=== PATIENT | male | born 1950 | race Caucasian/White ===

== ENCOUNTER 2023-11-21 09:54 | Inpatient (IN) | payer MEDICARE, SELFPAY ==
--- NOTE | ~2023-11-21 | XR_ITS ---
EXAMINATION: XR chest 1V CLINICAL INFORMATION: Fever COMPARISON: Chest x-ray 2 days earlier TECHNIQUE: XR chest 1V, 2 Views Lungs and [place]: Linear opacity likely platelike atelectasis left lung base, lungs otherwise remain clear. Pleura: Normal. Costophrenic angles are sharp. No pneumothorax. Heart: The heart is normal in size. Mediastinum: Widened mediastinum exaggerated by AP technique unchanged.. Bones: Skeletal structures included are normal for patient's age. XR/XR chest 1V IMPRESSION: 1. Linear opacity likely platelike atelectasis left lung base. 2. No radiographic evidence of pneumonia. 3. Widened mediastinum exaggerated by AP technique unchanged.
--- NOTE | ~2023-11-21 | CT_ITS ---
EXAMINATION: CT HEAD WITHOUT CONTRAST CLINICAL INFORMATION: Multiple falls. Unsteady gait. History of CVA. COMPARISON: None available. TECHNIQUE: Contiguous axial imaging was performed from the skull base to vertex without intravenous administration of contrast. This CT examination was performed using dose optimization techniques as appropriate, variously including the following: *Automated exposure control *Adjustment of mA and/or kV according to patient size (this includes techniques or standardized protocols for targeted exams where dose is matched to indication/reason for exam; i.e. extremities or head) *Use of iterative reconstruction technique DLP: 708 mGy-cm FINDINGS: There is no acute intracranial hemorrhage. There is no evidence of acute/subacute cerebral or cerebellar infarction. There is no midline shift or mass effect. No extra-axial fluid collection. There is cerebellar atrophy, right greater than left. The cavernous carotid arteries are densely calcified. There is calcification of the M1 segments of the middle cerebral arteries bilaterally. The ventricles are normal in size. The orbits are symmetric and within normal limits. The mastoid air cells are well aerated. There is scattered ethmoid air cell mucosal disease. CT/CT head/brain wo IV con IMPRESSION: No acute intracranial pathology. Cerebellar atrophy, right greater than left. Extensive intracranial atherosclerosis.
--- NOTE | ~2023-11-21 | XR_ITS ---
EXAMINATION: XR CHEST CLINICAL INFORMATION: Weakness. COMPARISON: None available. TECHNIQUE: 2 views of the chest were obtained. FINDINGS: The heart is mildly enlarged. There is calcific atherosclerotic disease of the aorta. There is no consolidation. No pleural effusion or pneumothorax. No acute osseous abnormality. XR/XR chest 2V IMPRESSION: No acute cardiopulmonary disease. The heart is mildly enlarged.
--- NOTE | ~2023-11-21 | CT_ITS ---
EXAMINATION: CT ABDOMEN AND PELVIS WITH CONTRAST CLINICAL INFORMATION: Fever and urinary infection. COMPARISON: CT abdomen 06/18/2027. TECHNIQUE: Multidetector volumetric images were obtained from the superior aspect of the liver through the pubic symphysis following administration 85 mL of Omnipaque 350 intravenous contrast. Sagittal and coronal reformatted images were obtained on the technologist's workstation. Oral contrast: No This CT examination was performed using dose optimization techniques as appropriate, variously including the following: *Automated exposure control *Adjustment of mA and/or kV according to patient size (this includes techniques or standardized protocols for targeted exams where dose is matched to indication/reason for exam; i.e. extremities or head) *Use of iterative reconstruction technique DLP: 708 mGy-cm FINDINGS: LUNG BASES: The visualized lung bases are unremarkable. LIVER, GALLBLADDER, AND BILIARY TREE: Several small cysts in the liver. No follow-up imaging is recommended. No biliary ductal dilatation. The gallbladder is unremarkable with no evidence of radiopaque gallstones, gallbladder wall thickening, or obvious pericholecystic inflammatory changes. PANCREAS: No discrete mass. No ductal dilatation. SPLEEN: Unremarkable. ADRENAL GLANDS: No adrenal mass. KIDNEYS AND URETERS: Multiple cysts are seen in both kidneys. No follow-up imaging is recommended. No nephrolithiasis or hydronephrosis. BLADDER: The bladder wall is not thickened. No visible trabeculation. No visible calculus. GASTROINTESTINAL TRACT: The small and large bowel are normal in caliber. Mild colonic diverticulosis. ABDOMINAL WALL: Fat-containing umbilical hernia. LYMPH NODES: No lymphadenopathy. VASCULAR: No aortic aneurysm. Mild aortoiliac atherosclerosis. PELVIC VISCERA: Prostate is enlarged measuring 5.5 x 4.8 x 5.2 cm. A 6 mm cystic lesion is seen in the left upper prostate which could represent a small abscess. OSSEOUS STRUCTURES: Degenerative changes in the spine and hips. CT/CT abdomen pelvis w IV con IMPRESSION: No CT evidence of pyelonephritis. No nephrolithiasis or hydronephrosis. Enlarged prostate. 6 mm cystic lesion in the left prostate is nonspecific but could represent a small abscess given the clinical indication. Correlation with physical exam is recommended. Fleischner guidelines were followed.
[2023-11-21 10:10] VITALS: BP 138/93; PULSE 91; RESP 20; TEMP 36.5; O2SAT 96; BMI 29.3
--- NOTE | 2023-11-21 15:02 | ED.GENADULT ---
HPI - General Adult General Chief complaint: General Medical Stated complaint: multiple symptoms Time Seen by Provider: 11/21/23 16:14 Source: patient and family (Daughter at the bedside) Mode of arrival: EMS Limitations: other (Hard of hearing, history of CVA with right-sided deficit) History of Present Illness HPI narrative: 73-year-old male with a history hemorrhagic CVA with right-sided weakness, currently at baseline, hypertension, presents from home via EMS with multiple concerns. Patient reports that over the past 2-3 days he began to have a rash, primarily on the right side of his mouth, and his right arm. He reports it as burning and painful. He reports it has crusted over since that time. He denies any new foods, detergents, soaps or any other contacts. In addition, for the past 1-2 weeks he has had increased difficulty with mobility. He reports generalized weakness and has had several falls. He denies striking his head since that time. He does admit to doing a lot of yard work outside. He denies any headache or vision changes. No chest pain or shortness of breath. No dyspnea on exertion orthopnea. He has had decreased appetite. According to the patient's daughter at the bedside, he is not able to care for himself adequately as he lives at home with his 97-year-old mother. The patient confirms that he despite using a walker is not able to properly care for himself and perform his ADLs. He does report episodes of urinary incontinence. Patient also reports over the past 24 hours he has been having difficulty with sleeping. Patient states he had some very vivid dreams that ?I could not get out of?. This caused him to be scared. He was able to awake and move about afterwards. Related Data Home Medications ?Medication ?Instructions ?Recorded ?Confirmed cholecalciferol (vitamin D3) 25 25 mcg PO QAM 11/21/23 11/21/23 mcg (1,000 unit) tablet (Vitamin D3) valsartan 160 mg tablet 160 mg PO QAM 11/21/23 11/21/23 Allergies Allergy/AdvReac Type Severity Reaction Status Date / Time KAY Inhibitors Allergy Severe SWELLING Verified 11/21/23 10:15 [KAY INHIBITORS] ciprofloxacin [CIPROFLOXACIN] Allergy Severe SWELLING Verified 11/21/23 10:15 gabapentin [GABAPENTIN] Allergy Severe ANAPHYLAXIS Verified 11/21/23 10:15 erythromycin base Allergy Intermediate SHORTNESS Verified 11/21/23 10:15 [ERYTHROMYCIN BASE] OF BREATH ibuprofen [From MOTRIN] Allergy Intermediate HIVES Verified 11/21/23 10:15 SERATONIN Allergy Severe SERATONIN Uncoded 03/16/20 16:39 SYNDROME Review of Systems Constitutional: Constitutional: Denies chills, Denies fever(s) and Denies headache(s) Eyes: Eyes: Denies change in vision and Denies other (No redness.) ENT: Denies headache(s), Denies nasal congestion, Denies nasal discharge, Denies neck pain and Denies sore throat Cardiovascular: Cardiovascular: Denies chest pain, Denies palpitations, Denies dyspnea, Denies dyspnea on exertion and Denies orthopnea Respiratory: Respiratory: Denies cough, Denies dyspnea and Denies dyspnea on exertion Gastrointestinal: Gastrointestinal: Denies abdominal pain, Denies melena, Denies hematochezia, Denies diarrhea, Denies nausea and Denies vomiting Genitourinary: Genitourinary: Denies difficulty urinating, Denies dysuria, Reports urinary incontinence and Denies urinary urgency Musculoskeletal: Musculoskeletal: Denies back pain, Reports muscle weakness, Denies neck pain and Reports numbness (Right arm and leg, baseline since cva) Integumentary/Breasts: Skin/Breast: Denies rash Neurologic: Denies headache(s), Denies focal weakness and Reports numbness (Right arm and leg, baseline since cva) Psychiatric: Psychiatric: Denies depression Endocrine: Endocrine: Denies palpitations [facility] Past Medical History [facility] Narrative: CVA, HTN Source: obtained from family Social History Social History Smoked in Last 30 Days: No Use of substances other than those prescribed or required for medical reasons: No Advance Directives: No Advance Directives Information Provided: No Physical Exam ED Vital Signs: Vital Signs - 24 hr 11/21/23 10:10 11/21/23 15:07 11/21/23 16:14 Temperature 97.7 F 97.4 F 98.0 F Pulse Rate 91 90 86 Respiratory Rate 20 20 17 Blood Pressure 138/93 H 155/97 H 133/90 H Pulse Oximetry 96 96 96 Oxygen Delivery Method Room Air Room Air Room Air 11/21/23 18:22 11/21/23 21:19 Temperature 98.0 F 97.8 F Pulse Rate 82 88 Respiratory Rate 17 18 Blood Pressure 145/80 H 131/88 Pulse Oximetry 96 96 Oxygen Delivery Method Room Air Room Air BMI result Body Mass Index 29.3 Const General: cooperative and no acute distress HENMT Other: Mucous membranes dry. Essentially edentulous. Neck Other: No spinous, paraspinous or paravertebral tenderness Resp Auscultation: clear to auscultation bilaterally Cardio Rate: regular rate Rhythm: regular rhythm GI Other: Abdomen is soft and nontender. No peritoneal signs. There is an umbilical hernia that is easily reduced. No CVAT. Skin Other: Multiple, slightly erythematous areas of papules with crusting to the right philtrum and corner of the mouth. There is no streaking or discharge. Similar satellite lesions to the dorsum of the right forearm. No induration. No other vesicles Neuro Other: Right-sided facial droop, baseline according to patient. Extrem Other: Manager Paper is 5/5 on the left, 4/5 on the right. Course Course Course Narrative: This is an RME: Additional HPI, ROS, PE not included below will be deferred to primary provider. RME assessment and note performed by: Anabell Raymond PA-C This is a [id number]-male, with a hx of hemorrhagic stroke with residual left sided facial droop 15 years ago, who presents to the ER with multiple complaints. Patient states that he has had mouth dryness, lesions on his skin and increased anxiety. Patient states that 2 nights ago he had a very bad dream which caused him to wake up in a panic. He states that he tried going back to bed and was back in the dream again. He states this happened 5 times. He is fearful to fall back asleep due to the dream. He does endorse some abdominal pain but is unable to discern whether not this is due to hunger. Plan: Labs, UA, EKG Reevaluation(s) Reevaluation #1: I have had a repeat discussion with the patient and his daughter at the bedside. Given that he has had generalized weakness, inability to care for himself, confusion at home evidenced by in coherent text, white blood cell count of 13.9, and urinalysis findings, patient will be brought into the hospital for further evaluation and management. Chest x-ray is unremarkable. CT of the head is pending. Discussed with Dr. Jay for transfer of care. 10:[address] results returned. No acute process. Dr. Jay notified. Time: 19:42 Medications Administered Discontinued Medications Generic Name Dose Route Start Last Admin Trade Name Traci PRN Reason Stop Dose Admin Sodium Chloride 1,000 mls @ 999 mls/hr 11/21/23 16:45 11/21/23 18:09 Ns IV 11/21/23 17:45 999 mls/hr .Q1H1M SHARMAINE Administration Ceftriaxone Sodium 1 gm/ 50 mls @ 100 mls/hr 11/21/23 17:24 11/21/23 20:06 Sodium Chloride IV 11/21/23 17:53 Infused ONCE ONE Infusion Medical Decision Making Medical Decision Making [facility] Narrative: 73-year-old male with a history of CVA and right-sided deficit, hypertension, presents with generalized weakness, failure to perform ADLs while at home, a new right-sided rash suspicious for zoster but could also be folliculitis. Check labs, EKG, UA, chest x-ray and CT of brain. IV fluids. The patient and his daughter concerned about his well-being while at home. If medically warranted, the patient was brought to the hospital otherwise he may be a candidate for rehab placement. Differential Diagnosis Differential Diagnoses: The differential diagnosis associated with the presentation includes Deconditioning UTI CVA Metabolic abnormality Dehydration Rhabdomyolysis Admission/Observation Consideration of admission/observation: Escalation of care including admission/observation considered Consult Healthcare Provider Management of the patient was discussed with: Hospitalist Lab Data [facility] Lab Attestation statement: I reviewed the patient's lab results. 11/21/23 15:28 11/21/23 15:28 Labs: Lab Results 11/21/23 11/21/23 11/21/23 Range/Units 15:28 15:28 15:28 WBC 13.9 H (4.8-10.8) X10*3/uL RBC 5.15 (4.60-5.80) X10*6/uL Hgb 15.4 (14.0-18.0) g/dl Hct 45.0 (42.0-52.0) % MCV 87.4 (80.0-98.0) fL MCH 29.9 (27.0-33.0) pg MCHC 34.2 (31.0-36.0) g/dl RDW 14.8 (11.0-16.0) % Plt Count 210 (160-400) X10*3/uL MPV 10.0 (9.4-12.4) fL Immature Gran % (Auto) Cancelled Neut % (Auto) Cancelled Lymph % (Auto) Cancelled Wilkin % (Auto) Cancelled Eos % (Auto) Cancelled Baso % (Auto) Cancelled Lymph # (Auto) Cancelled Wilkin # (Auto) Cancelled Eos # (Auto) Cancelled Baso # (Auto) Cancelled Abs Immat Gran (auto) Cancelled Absolute Neuts (auto) Cancelled Absolute Nucleated RBC 0.000 (0.0-0.012) X10*3/uL Nucleated RBC % (auto) 0.0 (0.0-0.2) /100WBC Neutrophils % (Manual) 77 H (45-73) % Band Neutrophils % 3 (3-5) % Lymphocytes % (Manual) 7 L (20-40) % Atypical Lymphs % (Man) 6 (0-6) % Monocytes % (Manual) 7 (2-11) % Abs Neuts (Manual) 11.1 H (2.0-8.3) X10*3/uL Lymphocytes # (Manual) 1.0 L (1.2-4.9) X10*3/uL Atyp Lymphs # (Manual) 0.8 x10*3/uL Monocytes # (Manual) 1.0 (0.1-1.2) X10*3/uL Platelet Estimate NORMAL (NORMAL) Plt Morphology Comment NORMAL RBC Morphology NOTED Goodwin Cells 1+ (0-2) /OIF Sodium 140 (135-145) mmol/L Potassium 4.0 (3.3-5.1) mmol/L Chloride 105 (96-108) mmol/L Carbon Dioxide 26 (22-29) mmol/L Anion Gap 13 (12-20) BUN 30 H (9-16) mg/dL Creatinine 1.04 (0.5-1.4) mg/dL Estim Creat Clear Calc 73.4 Estimated GFR > 60 Random Glucose 130 H (60-115) mg/dL Lactic Acid (0.5-2.0) mmol/L Calcium 10.2 (8.4-10.2) mg/dL Total Bilirubin 0.7 (0.0-1.0) mg/dL Direct Bilirubin 0.4 (0.0-0.5) mg/dL AST 41 H (5-37) U/L ALT 64 H (0-40) U/L Alkaline Phosphatase 28 L (39-117) U/L Total Creatine Kinase (38-174) U/L Troponin I High Sens 6.2 (<3.5-35.0) ng/L Total Protein 7.7 (6.5-8.0) g/dL Albumin 3.7 (3.5-5.0) g/dL TSH (0.32-4.0) uIU/mL Free T4 (0.71-1.85) ng/dL Urine Color Yellow Cancelled Urine Appearance Cloudy Cancelled Urine pH 5.5 (5.0-9.0) Ur Specific [place] (1.005-1.025) Urine Protein (Neg-Trace) mg/dL Urine Glucose (UA) (Negative) mg/dL Urine Ketones (Negative) mg/dL Urine Blood (Negative) Urine Nitrite (Negative) Ur Leukocyte Esterase (Negative) Urine RBC (0-2) /HPF Urine WBC (0-5) /HPF Ur Squamous Epith Cells (0-2) /HPF Urine Bacteria (None Seen) Hyaline Casts (0-2) /LPF 11/21/23 11/21/23 11/21/23 Range/Units 15:28 15:28 15:28 WBC (4.8-10.8) X10*3/uL RBC (4.60-5.80) X10*6/uL Hgb (14.0-18.0) g/dl Hct (42.0-52.0) % MCV (80.0-98.0) fL MCH (27.0-33.0) pg MCHC (31.0-36.0) g/dl RDW (11.0-16.0) % Plt Count (160-400) X10*3/uL MPV (9.4-12.4) fL Immature Gran % (Auto) Neut % (Auto) Lymph % (Auto) Wilkin % (Auto) Eos % (Auto) Baso % (Auto) Lymph # (Auto) Wilkin # (Auto) Eos # (Auto) Baso # (Auto) Abs Immat Gran (auto) Absolute Neuts (auto) Absolute Nucleated RBC (0.0-0.012) X10*3/uL Nucleated RBC % (auto) (0.0-0.2) /100WBC Neutrophils % (Manual) (45-73) % Band Neutrophils % (3-5) % Lymphocytes % (Manual) (20-40) % Atypical Lymphs % (Man) (0-6) % Monocytes % (Manual) (2-11) % Abs Neuts (Manual) (2.0-8.3) X10*3/uL Lymphocytes # (Manual) (1.2-4.9) X10*3/uL Atyp Lymphs # (Manual) x10*3/uL Monocytes # (Manual) (0.1-1.2) X10*3/uL Platelet Estimate (NORMAL) Plt Morphology Comment RBC Morphology Sandra Cells /OIF Sodium (135-145) mmol/L Potassium (3.3-5.1) mmol/L Chloride (96-108) mmol/L Carbon Dioxide (22-29) mmol/L Anion Gap (12-20) BUN (9-16) mg/dL Creatinine (0.5-1.4) mg/dL Estim Creat Clear Calc Estimated GFR Random Glucose (60-115) mg/dL Lactic Acid (0.5-2.0) mmol/L Calcium (8.4-10.2) mg/dL Total Bilirubin (0.0-1.0) mg/dL Direct Bilirubin (0.0-0.5) mg/dL AST (5-37) U/L ALT (0-40) U/L Alkaline Phosphatase (39-117) U/L Total Creatine Kinase (38-174) U/L Troponin I High Sens (<3.5-35.0) ng/L Total Protein (6.5-8.0) g/dL Albumin (3.5-5.0) g/dL TSH (0.32-4.0) uIU/mL Free T4 (0.71-1.85) ng/dL Urine Color Urine Appearance Urine pH Cancelled (5.0-9.0) Ur Specific [employer] [place] 1.020 Cancelled (1.005-1.025) Urine Protein 300 (3+) H Cancelled (Neg-Trace) mg/dL Urine Glucose (UA) Negative (Negative) mg/dL Urine Ketones (Negative) mg/dL Urine Blood (Negative) Urine Nitrite (Negative) Ur Leukocyte Esterase (Negative) Urine RBC (0-2) /HPF Urine WBC (0-5) /HPF Ur Squamous Epith Cells (0-2) /HPF Urine Bacteria (None Seen) Hyaline Casts (0-2) /LPF 11/21/23 11/21/23 11/21/23 Range/Units 15:28 15:28 15:28 WBC (4.8-10.8) X10*3/uL RBC (4.60-5.80) X10*6/uL Hgb (14.0-18.0) g/dl Hct (42.0-52.0) % MCV (80.0-98.0) fL MCH (27.0-33.0) pg MCHC (31.0-36.0) g/dl RDW (11.0-16.0) % Plt Count (160-400) X10*3/uL MPV (9.4-12.4) fL Immature Gran % (Auto) Neut % (Auto) Lymph % (Auto) Wilkin % (Auto) Eos % (Auto) Baso % (Auto) Lymph # (Auto) Wilkin # (Auto) Eos # (Auto) Baso # (Auto) Abs Immat Gran (auto) Absolute Neuts (auto) Absolute Nucleated RBC (0.0-0.012) X10*3/uL Nucleated RBC % (auto) (0.0-0.2) /100WBC Neutrophils % (Manual) (45-73) % Band Neutrophils % (3-5) % Lymphocytes % (Manual) (20-40) % Atypical Lymphs % (Man) (0-6) % Monocytes % (Manual) (2-11) % Abs Neuts (Manual) (2.0-8.3) X10*3/uL Lymphocytes # (Manual) (1.2-4.9) X10*3/uL Atyp Lymphs # (Manual) x10*3/uL Monocytes # (Manual) (0.1-1.2) X10*3/uL Platelet Estimate (NORMAL) Plt Morphology Comment RBC Morphology Goodwin Cells /OIF Sodium (135-145) mmol/L Potassium (3.3-5.1) mmol/L Chloride (96-108) mmol/L Carbon Dioxide (22-29) mmol/L Anion Gap (12-20) BUN (9-16) mg/dL Creatinine (0.5-1.4) mg/dL Estim Creat Clear Calc Estimated GFR Random Glucose (60-115) mg/dL Lactic Acid (0.5-2.0) mmol/L Calcium (8.4-10.2) mg/dL Total Bilirubin (0.0-1.0) mg/dL Direct Bilirubin (0.0-0.5) mg/dL AST (5-37) U/L ALT (0-40) U/L Alkaline Phosphatase (39-117) U/L Total Creatine Kinase (38-174) U/L Troponin I High Sens (<3.5-35.0) ng/L Total Protein (6.5-8.0) g/dL Albumin (3.5-5.0) g/dL TSH (0.32-4.0) uIU/mL Free T4 (0.71-1.85) ng/dL Urine Color Urine Appearance Urine pH (5.0-9.0) Ur Specific [employer] [place] (1.005-1.025) Urine Protein (Neg-Trace) mg/dL Urine Glucose (UA) Cancelled (Negative) mg/dL Urine Ketones 15 Cancelled (Negative) mg/dL Urine Blood Small (1+) H Cancelled (Negative) Urine Nitrite Negative (Negative) Ur Leukocyte Esterase (Negative) Urine RBC (0-2) /HPF Urine WBC (0-5) /HPF Ur Squamous Epith Cells (0-2) /HPF Urine Bacteria (None Seen) Hyaline Casts (0-2) /LPF 11/21/23 11/21/23 11/21/23 Range/Units 15:28 15:28 17:27 WBC (4.8-10.8) X10*3/uL RBC (4.60-5.80) X10*6/uL Hgb (14.0-18.0) g/dl Hct (42.0-52.0) % MCV (80.0-98.0) fL MCH (27.0-33.0) pg MCHC (31.0-36.0) g/dl RDW (11.0-16.0) % Plt Count (160-400) X10*3/uL MPV (9.4-12.4) fL Immature Gran % (Auto) Neut % (Auto) Lymph % (Auto) Wilkin % (Auto) Eos % (Auto) Baso % (Auto) Lymph # (Auto) Wilkin # (Auto) Eos # (Auto) Baso # (Auto) Abs Immat Gran (auto) Absolute Neuts (auto) Absolute Nucleated RBC (0.0-0.012) X10*3/uL Nucleated RBC % (auto) (0.0-0.2) /100WBC Neutrophils % (Manual) (45-73) % Band Neutrophils % (3-5) % Lymphocytes % (Manual) (20-40) % Atypical Lymphs % (Man) (0-6) % Monocytes % (Manual) (2-11) % Abs Neuts (Manual) (2.0-8.3) X10*3/uL Lymphocytes # (Manual) (1.2-4.9) X10*3/uL Atyp Lymphs # (Manual) x10*3/uL Monocytes # (Manual) (0.1-1.2) X10*3/uL Platelet Estimate (NORMAL) Plt Morphology Comment RBC Morphology Goodwin Cells /OIF Sodium (135-145) mmol/L Potassium (3.3-5.1) mmol/L Chloride (96-108) mmol/L Carbon Dioxide (22-29) mmol/L Anion Gap (12-20) BUN (9-16) mg/dL Creatinine (0.5-1.4) mg/dL Estim Creat Clear Calc Estimated GFR Random Glucose (60-115) mg/dL Lactic Acid 0.8 (0.5-2.0) mmol/L Calcium (8.4-10.2) mg/dL Total Bilirubin (0.0-1.0) mg/dL Direct Bilirubin (0.0-0.5) mg/dL AST (5-37) U/L ALT (0-40) U/L Alkaline Phosphatase (39-117) U/L Total Creatine Kinase 52 (38-174) U/L Troponin I High Sens (<3.5-35.0) ng/L Total Protein (6.5-8.0) g/dL Albumin (3.5-5.0) g/dL TSH 0.28 L (0.32-4.0) uIU/mL Free T4 1.13 (0.71-1.85) ng/dL Urine Color Urine Appearance Urine pH (5.0-9.0) Ur Specific [place] (1.005-1.025) Urine Protein (Neg-Trace) mg/dL Urine Glucose (UA) (Negative) mg/dL Urine Ketones (Negative) mg/dL Urine Blood (Negative) Urine Nitrite Cancelled (Negative) Ur Leukocyte Esterase Moderate (2+) H Cancelled (Negative) Urine RBC 0-2 (0-2) /HPF Urine WBC 21-50 (0-5) /HPF Ur Squamous Epith Cells 0-2 (0-2) /HPF Urine Bacteria 4+ (None Seen) Hyaline Casts 0-2 (0-2) /LPF Independent Interpretation I performed an independent interpretation of an: EKG Interpretation: No acute ischemic changes. Improved from previous. Radiology Impression Discussion of test interpretation with radiology: I have reviewed the radiologist's reading. Radiologist Impression: [place] [id number] XRay Report Signed Patient: Beau Schwartz MR#: [id number] : 1950 Acct:[id number] Age/Sex: 73 / M ADM Date: 11/21/23 Loc: .ED Attending Dr: Ordering Physician: Ronny Roberts Date of Service: 11/21/23 Procedure(s): XR chest 2V Accession Number(s): [id number] cc: HILLARY TRUJILLO MD; Ronny Roberts~ EXAMINATION: XR CHEST CLINICAL INFORMATION: Weakness. COMPARISON: None available. TECHNIQUE: 2 views of the chest were obtained. FINDINGS: The heart is mildly enlarged. There is calcific atherosclerotic disease of the aorta. There is no consolidation. No pleural effusion or pneumothorax. No acute osseous abnormality. XR/XR chest 2V IMPRESSION: No acute cardiopulmonary disease. The heart is mildly enlarged. Dictated By: Damir Tipton Jr, DO Signed By: <Electronically signed by Damir Tipton Jr, DO in OV> 11/21/23 1810 DD/ 1655 TD/TT: Postdoctoral Scholar: GINGER Independent Historian Clinical information obtained from an independent historian. History obtained from or confirmed by: Other (Daughter) Prescription Management I considered prescription management with: Antibiotic Chronic Conditions Patient?s care impacted by: Hypertension Social Determinants Patient?s care significantly limited by Social Determinants of Health including: Inadequate housing Discharge Plan Discharge Clinical Impression: Weakness Urinary tract infection Qualifiers: Urinary tract infection type: acute cystitis Hematuria presence: without hematuria Qualified Code(s): N30.00 - Acute cystitis without hematuria Patient Disposition: Admitted As Inpatient
[2023-11-21 15:07] VITALS: BP 155/97; PULSE 90; RESP 20; TEMP 36.3; O2SAT 96
--- NOTE | 2023-11-21 15:13 | ECG_ITS ---
Test Reason : ANXIETY Blood Pressure : / mmHG Vent. Rate : 086 BPM Atrial Rate : 086 BPM P-R Int : 160 ms QRS Dur : 102 ms QT Int : 374 ms P-R-T Axes : 012 -40 002 degrees QTc Int : 447 ms Sinus rhythm with Premature supraventricular complexes Left axis deviation Abnormal ECG When compared with ECG of 08-APR-2011 14:22, Premature ventricular complexes are no longer Present Premature supraventricular complexes are now Present Referred By: Anabell Raymond Electronically Signed By:Marty Gonzales
[2023-11-21 15:36] LABS: Appearance Urine Cloudy; Glucose Urine UA Negative (Negative); Leukocyte Esterase Urine Moderate (2+) (Negative); Nitrite Urine Negative (Negative); PH 5.5 (5.0-9.0); UMIC TRIGGER UACC YES; Urine Blood Small (1+) (Negative); Urine Ketones 15 mg/dL (Negative); Urine Protein 300 (3+) mg/dL (Neg-Trace)
[2023-11-21 15:38] LABS: Hemoglobin 15.4 g/dl (14.0-18.0); Mean Corpuscular HGB Conc 34.2 g/dl (31.0-36.0); Mean Corpuscular Hemoglobin 29.9 pg (27.0-33.0); Mean Corpuscular Volume 87.4 fL (80.0-98.0); Platelet Count 210 X10*3/uL (160-400); Red Blood Count 5.15 X10*6/uL (4.60-5.80); Red Cell Distribution Width 14.8 % (11.0-16.0); White Blood Count 13.9 X10*3/uL (4.8-10.8)
[2023-11-21 15:44] LABS: Color Urine Yellow
[2023-11-21 15:51] LABS: Bacteria Urine 4+ (None Seen); Hyaline Casts Urine 0-2 /LPF (0-2); RBC Urine 0-2 /HPF (0-2); Squamous Epithelial Cell Urine 0-2 /HPF (0-2); UACC Culture Trigger YES; WBC Urine 21-50 /HPF (0-5)
[2023-11-21 15:59] LABS: Alanine Aminotransferase 64 U/L (0-40); Albumin Level 3.7 g/dL (3.5-5.0); Alkaline Phosphatase 28 U/L (39-117); Anion Gap 13 (12-20); Aspartate Amino Transferase 41 U/L (5-37); Bilirubin Direct 0.4 mg/dL (0.0-0.5); Bilirubin Total 0.7 mg/dL (0.0-1.0); Blood Urea Nitrogen 30 mg/dL (9-16); Calcium 10.2 mg/dL (8.4-10.2); Carbon Dioxide 26 mmol/L (22-29); Chloride 105 mmol/L (96-108); Creatinine Clr Calc Pharmacy 73.4; Estimated Glomerular Filt Rate > 60; Glucose Random 130 mg/dL (60-115); Sodium 140 mmol/L (135-145); Total Protein 7.7 g/dL (6.5-8.0)
[2023-11-21 16:06] LABS: Troponin-I High Sensitivity 6.2 ng/L (<3.5-35.0)
[2023-11-21 16:10] LABS: Atypical Lymph Absolute Manual 0.8 x10*3/uL; Atypical Lymphs Percent Manual 6 % (0-6); Band Neutrophils Percent 3 % (3-5); Lymphocytes Percent Manual 7 % (20-40); Monocytes Percent Manual 7 % (2-11); Neutrophils Absolute Manual 11.1 X10*3/uL (2.0-8.3); Neutrophils Percent Manual 77 % (45-73)
[2023-11-21 16:11] LABS: Burr Cells 1+ (0-2) /OIF; RBC Morphology NOTED
[2023-11-21 16:12] LABS: Platelet Estimate NORMAL (NORMAL); Platelet Morphology Comment NORMAL
[2023-11-21 16:14] VITALS: BP 133/90; PULSE 86; RESP 17; TEMP 36.7; O2SAT 96
[2023-11-21 17:45] LABS: Lactic Acid 0.8 mmol/L (0.5-2.0)
[2023-11-21] MEDS: cefTRIAXone sodium 1 GM in 0.9 % Sodium Chloride 50 ML IV ×2 (18:07→23:00)
[2023-11-21] MEDS: 0.9 % Sodium Chloride 1,000 ML 999 ML IV (18:09)
[2023-11-21 18:10] LABS: TSH reflex Free T4 0.28 uIU/mL (0.32-4.0)
[2023-11-21 18:22] VITALS: BP 145/80; PULSE 82; RESP 17; TEMP 36.7; O2SAT 96
[2023-11-21 18:41] LABS: Free T4 (Free Thyroxine) 1.13 ng/dL (0.71-1.85)
--- NOTE | 2023-11-21 19:31 | PC.NURSE ---
This RN assumed pt care @ 1900. Pt ca&ox4, no signs of distress. Pt requesting hob elevated and urinal given. Pts daughter at bedside. Plan of care ongoing.
--- NOTE | 2023-11-21 20:52 | PC.NURSE ---
Pt changed into hospital gown. Plan of care ongoing.
[2023-11-21 21:19] VITALS: BP 131/88; PULSE 88; RESP 18; TEMP 36.6; O2SAT 96
--- NOTE | 2023-11-21 21:42 | P.HPHOSP_ITS ---
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 Patient with large CVA in 2008 with significant left-sided hemiparesis. Uses cane and walker for ambulation with occasional use of wheelchair for traveling longer distances. Family concerned patient has been less capable of taking care of himself at home over the past 1-2 weeks; lives with his 97 year mother. Patient reports having 3-4 falls at home while outside doing yard work, though states these occur when he is stuck in vegetation and finding it difficult to move. Denies tripping, lightheadedness, or dizziness. Denies head strike. Patient also complains of skin lesions on upper right extremity and on his face, primarily on the outside of his mouth on his right side. States they have been around for approximately a week, though worse the past 3-4 days. Minor pruritus. Patient also states that he has been experiencing worsening incontinence of urine, polyuria, and dysuria for the past week. Last night experienced hallucinations, long and protracted nightmares. States he was able to wake himself up, but nightmares would return every time he went back to sleep. This occurred 5 times. Family also concerned patient has been confused stating they received text from him last night that did not make sense and consisted of ?gibberish?. Patient denies chest pain/pressure, palpitations. No shortness of breath or difficulty breathing. In the ED pt was tachycardic up to 91, with elevated BP as high as 155/97. Labs were significant for leukocytosis of 13.9, AST 41, ALT 64, alk-phos 28, and TSH 0.28. Stable H& H. No electrolyte abnormalities. Renal function baseline. UA positive for UTI. CXR showed no acute cardiopulmonary disease with mildly enlarged heart. CT?of head negative for acute intracranial pathology, but did show cerebral atrophy with right greater than left and extensive intracranial atherosclerosis. EKG demonstrated sinus rhythm with premature supraventricular complexes but no evidence of significant ST elevations or depressions. Pt was treated with IVF and ceftriaxone. Pt will be admitted to the hospital for treatment and further evaluation of acute encephalopathy in the setting of acute UTI with sepsis. Review of Systems 2 Review of Systems: Confusion, nightmares Polyuria, dysuria Worsening incontinence Lesions on right arm and face Falls at home Denies chest pain/pressure, palpitations No shortness a breath or difficulty breathing Denies fever, chills, nausea, vomiting, abdominal pain PMFSH Social History Smoked in Last 30 Days: No Use of substances other than those prescribed or required for medical reasons: No Advance Directives: No Advance Directives Information Provided: No Meds Allergies Allergy/AdvReac Type Severity Reaction Status Date / Time KAY Inhibitors Allergy Severe SWELLING Verified 11/21/23 10:15 [KAY INHIBITORS] ciprofloxacin [CIPROFLOXACIN] Allergy Severe SWELLING Verified 11/21/23 10:15 gabapentin [GABAPENTIN] Allergy Severe ANAPHYLAXIS Verified 11/21/23 10:15 erythromycin base Allergy Intermediate SHORTNESS Verified 11/21/23 10:15 [ERYTHROMYCIN BASE] OF BREATH ibuprofen [From MOTRIN] Allergy Intermediate HIVES Verified 11/21/23 10:15 SERATONIN Allergy Severe SERATONIN Uncoded 03/16/20 16:39 SYNDROME Home Medications ?Medication ?Instructions ?Recorded ?Confirmed ?Last Taken ?Type cholecalciferol (vitamin D3) 25 25 mcg PO QAM 11/21/23 11/21/23 11/21/23 History mcg (1,000 unit) tablet (Vitamin D3) valsartan 160 mg tablet 160 mg PO QAM 11/21/23 11/21/23 11/21/23 History Physical Exam 2 Vital Signs and Narrative: Vital Signs: Last Vital Signs Temp 97.8 F 11/21/23 21:19 Pulse 88 11/21/23 21:19 Resp 18 11/21/23 21:19 BP 131/88 11/21/23 21:19 Pulse Ox 96 11/21/23 21:19 O2 Del Method Room Air 11/21/23 21:19 BMI result Body Mass Index 29.3 Constitutional: Alert, in no acute distress. Mental Status: Oriented to person, place and time. Eyes: Pupils are equal, round, and reactive to light. Ear, Nose, and Throat: Oropharynx clear, mucous membranes moist. Ears and nose without deformities. Trachea midline. Respiratory: Clear to auscultation bilaterally. No wheezing, rales, or rhonchi. Cardiovascular: S1, S2 regular. No murmurs, rubs, or gallops. Gastrointestinal: Abdomen soft, non-tender, non-distended. Normal bowel sounds. Neurologic: Cranial nerves II-XII are grossly intact bilaterally. Moves all extremities spontaneously. Chronic left-sided facial droop including mouth and eye. Right-sided hemiparesis with diminished sensation and strength. Skin: Small circular scabbed lesions on right forearm without signs of infection. Multiple perioral papules with crusting in very stage feeling, primarily on right side of mouth. Musculoskeletal: No cyanosis or clubbing. Extremities: No edema. Psychiatric: Normal mood and affect. Results Labs 11/21/23 15:28 11/21/23 15:28 Labs: Laboratory Results - last 24 hr 11/21/23 11/21/23 11/21/23 15: 15:28 15:28 MCV 87.4 MCH 29.9 MCHC 34.2 RDW 14.8 Plt Count 210 MPV 10.0 Immature Gran % (Auto) Cancelled Neut % (Auto) Cancelled Lymph % (Auto) Cancelled [place] % (Auto) Cancelled Eos % (Auto) Cancelled Baso % (Auto) Cancelled Lymph # (Auto) Cancelled [place] # (Auto) Cancelled Eos # (Auto) Cancelled Baso # (Auto) Cancelled Abs Immat Gran (auto) Cancelled Absolute Neuts (auto) Cancelled Absolute Nucleated RBC 0.000 Nucleated RBC % (auto) 0.0 Neutrophils % (Manual) 77 H Band Neutrophils % 3 Lymphocytes % (Manual) 7 L Atypical Lymphs % (Man) 6 Monocytes % (Manual) 7 Abs Neuts (Manual) 11.1 H Lymphocytes # (Manual) 1.0 L Atyp Lymphs # (Manual) 0.8 Monocytes # (Manual) 1.0 Platelet Estimate NORMAL Plt Morphology Comment NORMAL RBC Morphology NOTED [place] Cells 1+ (0-2) Anion Gap 13 Estim Creat Clear Calc 73.4 Estimated GFR > 60 Random Glucose 130 H Lactic Acid Calcium 10.2 Total Bilirubin 0.7 Direct Bilirubin 0.4 AST 41 H ALT 64 H Alkaline Phosphatase 28 L Total Creatine Kinase Troponin I High Sens 6.2 Total Protein 7.7 Albumin 3.7 TSH Free T4 Urine Color Yellow Cancelled Urine Appearance Cloudy Cancelled Urine pH 5.5 Ur Specific [place] Urine Protein Urine Glucose (UA) Urine Ketones Urine Blood Urine Nitrite Ur Leukocyte Esterase Urine RBC Urine WBC Ur Squamous Epith Cells Urine Bacteria Hyaline Casts 11/21/23 11/21/23 11/21/23 15:28 15:28 15:28 MCV MCH MCHC RDW Plt Count MPV Immature Gran % (Auto) Neut % (Auto) Lymph % (Auto) [place] % (Auto) Eos % (Auto) Baso % (Auto) Lymph # (Auto) [place] # (Auto) Eos # (Auto) Baso # (Auto) Abs Immat Gran (auto) Absolute Neuts (auto) Absolute Nucleated RBC Nucleated RBC % (auto) Neutrophils % (Manual) Band Neutrophils % Lymphocytes % (Manual) Atypical Lymphs % (Man) Monocytes % (Manual) Abs Neuts (Manual) Lymphocytes # (Manual) Atyp Lymphs # (Manual) Monocytes # (Manual) Platelet Estimate Plt Morphology Comment RBC Morphology [place] Cells Anion Gap Estim Creat Clear Calc Estimated GFR Random Glucose Lactic Acid Calcium Total Bilirubin Direct Bilirubin AST ALT Alkaline Phosphatase Total Creatine Kinase Troponin I High Sens Total Protein Albumin TSH Free T4 Urine Color Urine Appearance Urine pH Cancelled Ur Specific [place] 1.020 Cancelled Urine Protein 300 (3+) H Cancelled Urine Glucose (UA) Negative Urine Ketones Urine Blood Urine Nitrite Ur Leukocyte Esterase Urine RBC Urine WBC Ur Squamous Epith Cells Urine Bacteria Hyaline Casts 11/21/23 11/21/23 11/21/23 15:28 15:28 15:28 MCV MCH MCHC RDW Plt Count MPV Immature Gran % (Auto) Neut % (Auto) Lymph % (Auto) [place] % (Auto) Eos % (Auto) Baso % (Auto) Lymph # (Auto) [place] # (Auto) Eos # (Auto) Baso # (Auto) Abs Immat Gran (auto) Absolute Neuts (auto) Absolute Nucleated RBC Nucleated RBC % (auto) Neutrophils % (Manual) Band Neutrophils % Lymphocytes % (Manual) Atypical Lymphs % (Man) Monocytes % (Manual) Abs Neuts (Manual) Lymphocytes # (Manual) Atyp Lymphs # (Manual) Monocytes # (Manual) Platelet Estimate Plt Morphology Comment RBC Morphology [place] Cells Anion Gap Estim Creat Clear Calc Estimated GFR Random Glucose Lactic Acid Calcium Total Bilirubin Direct Bilirubin AST ALT Alkaline Phosphatase Total Creatine Kinase Troponin I High Sens Total Protein Albumin TSH Free T4 Urine Color Urine Appearance Urine pH Ur Specific [place] Urine Protein Urine Glucose (UA) Cancelled Urine Ketones 15 Cancelled Urine Blood Small (1+) H Cancelled Urine Nitrite Negative Ur Leukocyte Esterase Urine RBC Urine WBC Ur Squamous Epith Cells Urine Bacteria Hyaline Casts 11/21/23 11/21/23 11/21/23 15:28 15:28 17:27 MCV MCH MCHC RDW Plt Count MPV Immature Gran % (Auto) Neut % (Auto) Lymph % (Auto) [place] % (Auto) Eos % (Auto) Baso % (Auto) Lymph # (Auto) [place] # (Auto) Eos # (Auto) Baso # (Auto) Abs Immat Gran (auto) Absolute Neuts (auto) Absolute Nucleated RBC Nucleated RBC % (auto) Neutrophils % (Manual) Band Neutrophils % Lymphocytes % (Manual) Atypical Lymphs % (Man) Monocytes % (Manual) Abs Neuts (Manual) Lymphocytes # (Manual) Atyp Lymphs # (Manual) Monocytes # (Manual) Platelet Estimate Plt Morphology Comment RBC Morphology [place] Cells Anion Gap Estim Creat Clear Calc Estimated GFR Random Glucose Lactic Acid 0.8 Calcium Total Bilirubin Direct Bilirubin AST ALT Alkaline Phosphatase Total Creatine Kinase 52 Troponin I High Sens Total Protein Albumin TSH 0.28 L Free T4 1.13 Urine Color Urine Appearance Urine pH Ur Specific [place] Urine Protein Urine Glucose (UA) Urine Ketones Urine Blood Urine Nitrite Cancelled Ur Leukocyte Esterase Moderate (2+) H Cancelled Urine RBC 0-2 Urine WBC 21-50 Ur Squamous Epith Cells 0-2 Urine Bacteria 4+ Hyaline Casts 0-2 Imaging Radiologist's Impressions: Impressions Chest X-Ray 11/21/23 16:55 IMPRESSION: No acute cardiopulmonary disease. The heart is mildly enlarged. 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 Pt will be admitted to the hospital for treatment and further evaluation of acute encephalopathy in the setting of acute UTI with sepsis. Acute metabolic encephalopathy in the setting of UTI with sepsis Patient with reported confusion, vivid nightmares, polyuria, dysuria, and increased urinary incontinence x1 week UA positive for UTI Patient's mentation currently seemingly back to baseline Patient meets sepsis criteria: Leukocytosis, tachycardia; lactic acid WNL at 0.8 Patient given IVF and started on broad-spectrum antibiotics in the ED Will treat with ceftriaxone, started 11/21/2023 Follow cultures Monitor mentation Frequent falls at home Patient with 3+ falls outside while doing yardd work in the past week and a half Imaging negative for acute fractures or intracranial pathology PT evaluation Skin lesions Pt with lesions on right arm and perioral, especially on right side of lips Unclear etiology: does not appear to be shingles or contact dermatitis from poison donell/sumac Monitor for now Follow tick panel If become painful or pruritic, consider topical corticosteroid for arm and/or antihistamine or oral steroid HTN Continue valsartan EARNESTINE On BiPAP at night Subclinical hypothyroidism Patient's TSH low at 0.28 with T4 WNL at 1.13 Follow-up outpatient for repeat labs in 3-6 months Full Code Attending:? DVT Prophylaxis: Lovenox Pt will require a hospitalization of at least two nights for treatment of?acute encephalopathy in the setting of UTI with sepsis. Given constellation of patient's symptoms, including polyuria, dysuria, increased urinary incontinence, along with confusion and recent frequent falls at home, patient will require hospitalization for administration of IV antibiotics, close monitoring of mentation, and PT evaluation for safe disposition. Quality Stroke Does the patient have a stroke diagnosis?: No VTE Prior VTE?: No VTE Risk Level:: Medical - moderate - high VTE Device Contraindication: Treatment Not Indicated VTE Drug Contraindication: N/A - Med Ordered
--- NOTE | 2023-11-21 22:12 | PHA.MEDREC ---
Pharmacy Consult ? Medication Reconciliation Pharmacy has completed the medication reconciliation. Spoke to patient and confirmed medication list.
[2023-11-21 22:44] VITALS: PULSE 128; O2SAT 96
[2023-11-21] MEDS: Enoxaparin Sodium 40 MG/0.4 ML SYRINGE SUBCUT (23:00)
[2023-11-22] MEDS: 0.9 % Sodium Chloride Flush 3 ML SYRINGE IVFLUSH ×3 (01:00→16:20)
[2023-11-22 01:22] VITALS: BP 122/67; PULSE 90; RESP 18; TEMP 36.7; O2SAT 92
[2023-11-22 06:59] LABS: Hematocrit 43.1 % (42.0-52.0); Hemoglobin 14.6 g/dl (14.0-18.0); Mean Corpuscular HGB Conc 33.9 g/dl (31.0-36.0); Mean Corpuscular Hemoglobin 29.4 pg (27.0-33.0); Mean Corpuscular Volume 86.7 fL (80.0-98.0); Mean Platelet Volume 10.6 fL (9.4-12.4); Platelet Count 231 X10*3/uL (160-400); Red Blood Count 4.97 X10*6/uL (4.60-5.80); Red Cell Distribution Width 14.7 % (11.0-16.0); White Blood Count 13.2 X10*3/uL (4.8-10.8)
[2023-11-22 07:12] LABS: Anion Gap 17 (12-20); Blood Urea Nitrogen 30 mg/dL (9-16); Calcium 9.3 mg/dL (8.4-10.2); Carbon Dioxide 21 mmol/L (22-29); Chloride 106 mmol/L (96-108); Creatinine Clr Calc Pharmacy 80.3; Estimated Glomerular Filt Rate > 60; Glucose Random 106 mg/dL (60-115); Potassium 3.8 mmol/L (3.3-5.1); Sodium 140 mmol/L (135-145)
--- NOTE | 2023-11-22 07:30 | HO.PM.IMPN ---
Subjective Subjective Date of Service: 11/22/23 Interval History: Seen in follow-up for acute metabolic encephalopathy in setting of UTI with sepsis, recurrent falls Interval history: A&O x3. No complaints at this time. Review of Systems Review of Systems: Yes all other systems are reviewed and are negative Physical Exam Vital Signs: Vital Signs: Last Vital Signs Temp 98.0 F 11/22/23 01:22 Pulse 90 11/22/23 01:22 Resp 18 11/22/23 01:22 BP 122/67 11/22/23 01:22 Pulse Ox 92 11/22/23 01:22 O2 Del Method Room Air 11/22/23 01:22 BMI result Body Mass Index 29.3 Constitutional - Awake and Alert, No apparent distress Eyes - PERRLA, EOMI Cardiovascular - S1S2, RRR, No edema Respiratory - Normal lung expansion, Normal respiratory effort, No respiratory distress, CTA bilaterally Gastrointestinal - NT / ND; +BS; No rebound or guarding Extremities - no calf tenderness bilaterally, no swelling Skin - Warm/Dry. Crusted lesions with slightly erythematous base surrounding lips and crossing the vermilion border and affecting both left and right lips (b/l dermatomal involvement). Multiple similar lesions R arm Neurological - Alert & oriented x3 Psychological - Appropriate affect Objective Data Active Medications Acetaminophen (Acetaminophen 325 Mg Tablet) 650 mg PO Q6H PRN PRN Reason: Pain, Mild (Pain Scale 1-3) Enoxaparin Sodium (Enoxaparin Sodium 40 Mg/0.4 Ml Syringe) 40 mg SUBCUT Q24H [facility] Last Admin: 11/21/23 23:00 Dose: 40 mg Documented By: JOB Ceftriaxone Sodium 1 gm/ (Sodium Chloride) 50 mls @ 100 mls/hr IV Q24H [facility] Last Infusion: 11/21/23 23:30 Dose: Infused Documented By: JOB Melatonin (Melatonin 3 Mg Tablet) 6 mg PO BEDTIME PRN PRN Reason: Insomnia Ondansetron HCl (Ondansetron Hcl 4 Mg/2 Ml Vial) 4 mg IVPUSH Q8H PRN PRN Reason: Nausea and Vomiting Sodium Chloride (0.9 % Sodium Chloride Flush 3 Ml Syringe) 3 ml IVFLUSH QSHIFT [facility] Last Admin: 11/22/23 01:00 Dose: 3 ml Documented By: JOB Valsartan (Valsartan 160 Mg Tablet) 160 mg PO DAILY@0900 [facility]; Protocol Vitamin D (Cholecalciferol (Vitamin D3) 25 Mcg Tablet) 25 mcg PO DAILY@0900 [facility] Labs 11/22/23 05:44 11/22/23 05:44 Labs: Laboratory Results - last 24 hr 11/21/23 11/21/23 11/21/23 15:28 15:28 15:28 MCV 87.4 MCH 29.9 MCHC 34.2 RDW 14.8 Plt Count 210 MPV 10.0 Immature Gran % (Auto) Cancelled Neut % (Auto) Cancelled Lymph % (Auto) Cancelled [place] % (Auto) Cancelled Eos % (Auto) Cancelled Baso % (Auto) Cancelled Lymph # (Auto) Cancelled [place] # (Auto) Cancelled Eos # (Auto) Cancelled Baso # (Auto) Cancelled Abs Immat Gran (auto) Cancelled Absolute Neuts (auto) Cancelled Absolute Nucleated RBC 0.000 Nucleated RBC % (auto) 0.0 Neutrophils % (Manual) 77 H Band Neutrophils % 3 Lymphocytes % (Manual) 7 L Atypical Lymphs % (Man) 6 Monocytes % (Manual) 7 Abs Neuts (Manual) 11.1 H Lymphocytes # (Manual) 1.0 L Atyp Lymphs # (Manual) 0.8 Monocytes # (Manual) 1.0 Platelet Estimate NORMAL Plt Morphology Comment NORMAL RBC Morphology NOTED Sandra Cells 1+ (0-2) Anion Gap 13 Estim Creat Clear Calc 73.4 Estimated GFR > 60 Random Glucose 130 H Lactic Acid Calcium 10.2 Total Bilirubin 0.7 Direct Bilirubin 0.4 AST 41 H ALT 64 H Alkaline Phosphatase 28 L Total Creatine Kinase Troponin I High Sens 6.2 Total Protein 7.7 Albumin 3.7 TSH Free T4 Urine Color Yellow Cancelled Urine Appearance Cloudy Cancelled Urine pH 5.5 Ur Specific [place] Urine Protein Urine Glucose (UA) Urine Ketones Urine Blood Urine Nitrite Ur Leukocyte Esterase Urine RBC Urine WBC Ur Squamous Epith Cells Urine Bacteria Hyaline Casts 11/21/23 11/21/23 11/21/23 15:28 15:28 15:28 MCV MCH MCHC RDW Plt Count MPV Immature Gran % (Auto) Neut % (Auto) Lymph % (Auto) [place] % (Auto) Eos % (Auto) Baso % (Auto) Lymph # (Auto) [place] # (Auto) Eos # (Auto) Baso # (Auto) Abs Immat Gran (auto) Absolute Neuts (auto) Absolute Nucleated RBC Nucleated RBC % (auto) Neutrophils % (Manual) Band Neutrophils % Lymphocytes % (Manual) Atypical Lymphs % (Man) Monocytes % (Manual) Abs Neuts (Manual) Lymphocytes # (Manual) Atyp Lymphs # (Manual) Monocytes # (Manual) Platelet Estimate Plt Morphology Comment RBC Morphology Sandra Cells Anion Gap Estim Creat Clear Calc Estimated GFR Random Glucose Lactic Acid Calcium Total Bilirubin Direct Bilirubin AST ALT Alkaline Phosphatase Total Creatine Kinase Troponin I High Sens Total Protein Albumin TSH Free T4 Urine Color Urine Appearance Urine pH Cancelled Ur Specific [place] 1.020 Cancelled Urine Protein 300 (3+) H Cancelled Urine Glucose (UA) Negative Urine Ketones Urine Blood Urine Nitrite Ur Leukocyte Esterase Urine RBC Urine WBC Ur Squamous Epith Cells Urine Bacteria Hyaline Casts 11/21/23 11/21/23 11/21/23 15:28 15:28 15:28 MCV MCH MCHC RDW Plt Count MPV Immature Gran % (Auto) Neut % (Auto) Lymph % (Auto) [place] % (Auto) Eos % (Auto) Baso % (Auto) Lymph # (Auto) [place] # (Auto) Eos # (Auto) Baso # (Auto) Abs Immat Gran (auto) Absolute Neuts (auto) Absolute Nucleated RBC Nucleated RBC % (auto) Neutrophils % (Manual) Band Neutrophils % Lymphocytes % (Manual) Atypical Lymphs % (Man) Monocytes % (Manual) Abs Neuts (Manual) Lymphocytes # (Manual) Atyp Lymphs # (Manual) Monocytes # (Manual) Platelet Estimate Plt Morphology Comment RBC Morphology [place] Cells Anion Gap Estim Creat Clear Calc Estimated GFR Random Glucose Lactic Acid Calcium Total Bilirubin Direct Bilirubin AST ALT Alkaline Phosphatase Total Creatine Kinase Troponin I High Sens Total Protein Albumin TSH Free T4 Urine Color Urine Appearance Urine pH Ur Specific [place] Urine Protein Urine Glucose (UA) Cancelled Urine Ketones 15 Cancelled Urine Blood Small (1+) H Cancelled Urine Nitrite Negative Ur Leukocyte Esterase Urine RBC Urine WBC Ur Squamous Epith Cells Urine Bacteria Hyaline Casts 11/21/23 11/21/23 11/21/23 15:28 15:28 17:27 MCV MCH MCHC RDW Plt Count MPV Immature Gran % (Auto) Neut % (Auto) Lymph % (Auto) [place] % (Auto) Eos % (Auto) Baso % (Auto) Lymph # (Auto) [place] # (Auto) Eos # (Auto) Baso # (Auto) Abs Immat Gran (auto) Absolute Neuts (auto) Absolute Nucleated RBC Nucleated RBC % (auto) Neutrophils % (Manual) Band Neutrophils % Lymphocytes % (Manual) Atypical Lymphs % (Man) Monocytes % (Manual) Abs Neuts (Manual) Lymphocytes # (Manual) Atyp Lymphs # (Manual) Monocytes # (Manual) Platelet Estimate Plt Morphology Comment RBC Morphology [place] Cells Anion Gap Estim Creat Clear Calc Estimated GFR Random Glucose Lactic Acid 0.8 Calcium Total Bilirubin Direct Bilirubin AST ALT Alkaline Phosphatase Total Creatine Kinase 52 Troponin I High Sens Total Protein Albumin TSH 0.28 L Free T4 1.13 Urine Color Urine Appearance Urine pH Ur Specific [place] Urine Protein Urine Glucose (UA) Urine Ketones Urine Blood Urine Nitrite Cancelled Ur Leukocyte Esterase Moderate (2+) H Cancelled Urine RBC 0-2 Urine WBC 21-50 Ur Squamous Epith Cells 0-2 Urine Bacteria 4+ Hyaline Casts 0-2 11/22/23 05:44 MCV MCH MCHC RDW Plt Count MPV Immature Gran % (Auto) Neut % (Auto) Lymph % (Auto) [place] % (Auto) Eos % (Auto) Baso % (Auto) Lymph # (Auto) [place] # (Auto) Eos # (Auto) Baso # (Auto) Abs Immat Gran (auto) Absolute Neuts (auto) Absolute Nucleated RBC Nucleated RBC % (auto) Neutrophils % (Manual) Band Neutrophils % Lymphocytes % (Manual) Atypical Lymphs % (Man) Monocytes % (Manual) Abs Neuts (Manual) Lymphocytes # (Manual) Atyp Lymphs # (Manual) Monocytes # (Manual) Platelet Estimate Plt Morphology Comment RBC Morphology [place] Cells Anion Gap 17 Estim Creat Clear Calc 80.3 Estimated GFR > 60 Random Glucose 106 Lactic Acid Calcium 9.3 D Total Bilirubin Direct Bilirubin AST ALT Alkaline Phosphatase Total Creatine Kinase Troponin I High Sens Total Protein Albumin TSH Free T4 Urine Color Urine Appearance Urine pH Ur Specific [place] Urine Protein Urine Glucose (UA) Urine Ketones Urine Blood Urine Nitrite Ur Leukocyte Esterase Urine RBC Urine WBC Ur Squamous Epith Cells Urine Bacteria Hyaline Casts Assessment and Plan (1) Acute encephalopathy: Status: Acute (2) Weakness: Status: Acute (3) Urinary tract infection: Status: Acute (4) Recurrent falls: Status: Acute Plan 73-year-old male with a PMH significant for?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 Pt will be admitted to the hospital for treatment and further evaluation of acute encephalopathy in the setting of acute UTI with sepsis. #Acute metabolic encephalopathy in the setting of UTI with sepsis -Patient with reported confusion, vivid nightmares, polyuria, dysuria, and increased urinary incontinence x1 week- mentation improved to baseline on exma -Met sepsis criteria on admission -IV ceftriaxone (initiated 11/20) -follow CBC, cultures -monitor mentation #Frequent falls at home -Patient with 3+ falls outside while doing yard work in the past week and a half -Imaging negative for acute fractures or intracranial pathology -PT evaluation #Skin lesions -Pt with lesions on right arm and perioral, especially on b/l side of lips crossing vermilion border -given bilateral/multiple dermatomal involvement and lack intact vesicles, less suspicious for shingles. More likely related to acute contact dermatitis secondary to poison donell/sumac -patient not irritated, consider adding antihistamine, topical corticosteroid -tick fitzgerald pending -monitor for now #HTN -Continue valsartan #EARNESTINE -On BiPAP at night #Subclinical hypothyroidism -Patient's TSH low at 0.28 with T4 WNL at 1.13 -Follow-up outpatient for repeat labs in 3-6 months DVT prophylaxis-Lovenox Full code Patient requires ongoing inpatient hospitalization due to UTI with sepsis and acute metabolic encephalopathy requiring IV antibiotics and close monitoring of mentation Quality Stroke Does the patient have a stroke diagnosis?: No VTE Prior VTE?: No VTE Risk Level:: Medical - moderate - high VTE Device Contraindication: Treatment Not Indicated VTE Drug Contraindication: N/A - Med Ordered
[2023-11-22 07:42] LABS: Atypical Lymph Absolute Manual 0.7 x10*3/uL; Atypical Lymphs Percent Manual 5 % (0-6); Band Neutrophils Percent 6 % (3-5); Eosinophils Absolute Manual 0.3 X10*3/uL (0.0-0.4); Eosinophils Percent Manual 2 % (0-4); Lymphocytes Absolute Manual 1.8 X10*3/uL (1.2-4.9); Lymphocytes Percent Manual 14 % (20-40); Metamyelocytes Absolute 0.1 X10*3/uL; Metamyelocytes Percent 1 %; Monocytes Absolute Manual 0.8 X10*3/uL (0.1-1.2); Monocytes Percent Manual 6 % (2-11); Neutrophils Absolute Manual 9.5 X10*3/uL (2.0-8.3); Neutrophils Percent Manual 66 % (45-73)
[2023-11-22 07:48] LABS: Platelet Estimate NORMAL (NORMAL); Platelet Morphology Comment NORMAL; RBC Morphology NORMAL
--- NOTE | 2023-11-22 07:50 | PC.NURSE ---
incontinent of large amount of urine. full bed change, patient cleaned and repositioned in bed. call hutson within reach, patient awake and eating breakfast.
[2023-11-22 08:00] VITALS: BP 137/81; PULSE 84; RESP 20; O2SAT 95
[2023-11-22] MEDS: Cholecalciferol (Vitamin D3) 25 MCG TABLET PO (08:18)
[2023-11-22] MEDS: Valsartan 160 MG TABLET PO (08:18)
--- NOTE | 2023-11-22 08:41 | MHC.EDTECH ---
Put a [place] catheter on patient to help with urination.
[2023-11-22 09:23] VITALS: BP 137/81; PULSE 84; O2SAT 95
--- NOTE | 2023-11-22 14:52 | MHC.EDTECH ---
emptied [place] bag, 950ml
[2023-11-22 16:21] VITALS: BP 164/89; PULSE 102; RESP 18; TEMP 36.8; O2SAT 94
--- NOTE | 2023-11-22 20:17 | PC.NURSE ---
family at bedside. pt is axox4. eating dinner without issues. water provided per request. pt sat up in bed. nad pt denies and pain/concerns. call hutson within reach.
[2023-11-22 22:10] VITALS: BP 140/85; PULSE 86; RESP 18; TEMP 36.8; O2SAT 92
[2023-11-22] MEDS: cefTRIAXone sodium 1 GM in 0.9 % Sodium Chloride 50 ML IV (22:11)
[2023-11-22] MEDS: Enoxaparin Sodium 40 MG/0.4 ML SYRINGE SUBCUT (22:11)
[2023-11-22 22:14] VITALS: BMI 29.6
[2023-11-23] VITALS (10 sets, daily range): BP systolic 122–159; BP diastolic 76–99; PULSE 63–120; RESP 16–21; TEMP 36.4–39.1; O2SAT 92–96
[2023-11-23] MEDS: 0.9 % Sodium Chloride Flush 3 ML SYRINGE IVFLUSH ×2 (00:13→09:52)
[2023-11-23 07:08] LABS: Hematocrit 46.5 % (42.0-52.0); Hemoglobin 15.7 g/dl (14.0-18.0); Mean Corpuscular HGB Conc 33.8 g/dl (31.0-36.0); Mean Corpuscular Hemoglobin 29.5 pg (27.0-33.0); Mean Corpuscular Volume 87.4 fL (80.0-98.0); Mean Platelet Volume 10.1 fL (9.4-12.4); Platelet Count 228 X10*3/uL (160-400); Red Blood Count 5.32 X10*6/uL (4.60-5.80); Red Cell Distribution Width 14.6 % (11.0-16.0); White Blood Count 12.8 X10*3/uL (4.8-10.8)
--- NOTE | 2023-11-23 07:47 | HO.PM.IMPN ---
Subjective Subjective Date of Service: 11/23/23 Interval History: Seen in follow-up for acute metabolic encephalopathy in setting of UTI with sepsis, recurrent falls Interval history: A&O x3, but agitated, seems confused. New fever 101.9, tachycardic, tachypneic. Review of Systems Review of Systems: Yes Unobtainable due to mental status Physical Exam Vital Signs: Vital Signs: Last Vital Signs Temp 98.1 F 11/23/23 07:37 Pulse 99 11/23/23 07:37 Resp 18 11/23/23 07:37 BP 146/84 H 11/23/23 07:37 Pulse Ox 95 11/23/23 07:37 O2 Del Method Room Air 11/23/23 07:37 BMI result Body Mass Index 29.6 Constitutional - Awake and Alert, No apparent distress Eyes - PERRLA, EOMI Cardiovascular - S1S2, RRR, No edema Respiratory - Normal lung expansion, Normal respiratory effort, No respiratory distress, CTA bilaterally Gastrointestinal - NT / ND; +BS; No rebound or guarding Extremities - no calf tenderness bilaterally, no swelling Skin - Warm/Dry. scabbed lesions around mouth and on bilateral lips without drainage, erythema Neurological - Alert & oriented x3 Psychological - Appropriate affect Objective Data Active Medications Acetaminophen (Acetaminophen 325 Mg Tablet) 650 mg PO Q6H PRN PRN Reason: Pain, Mild (Pain Scale 1-3) Enoxaparin Sodium (Enoxaparin Sodium 40 Mg/0.4 Ml Syringe) 40 mg SUBCUT Q24H [facility] Last Admin: 11/22/23 22:11 Dose: 40 mg Documented By: CORIN Ceftriaxone Sodium 1 gm/ (Sodium Chloride) 50 mls @ 100 mls/hr IV Q24H [facility] Last Infusion: 11/22/23 22:48 Dose: Infused Documented By: CORIN Melatonin (Melatonin 3 Mg Tablet) 6 mg PO BEDTIME PRN PRN Reason: Insomnia Ondansetron HCl (Ondansetron Hcl 4 Mg/2 Ml Vial) 4 mg IVPUSH Q8H PRN PRN Reason: Nausea and Vomiting Sodium Chloride (0.9 % Sodium Chloride Flush 3 Ml Syringe) 3 ml IVFLUSH QSHIFT [facility] Last Admin: 11/23/23 00:13 Dose: 3 ml Documented By: CURRY Valsartan (Valsartan 160 Mg Tablet) 160 mg PO DAILY@0900 [facility]; Protocol Last Admin: 11/22/23 08:18 Dose: 160 mg Documented By: OFELIA Vitamin D (Cholecalciferol (Vitamin D3) 25 Mcg Tablet) 25 mcg PO DAILY@0900 [facility] Last Admin: 11/22/23 08:18 Dose: 25 mcg Documented By: OFELIA Labs 11/23/23 06:22 11/22/23 05:44 Labs: Laboratory Results - last 24 hr 11/22/23 11/23/23 05:44 06:22 MCV 87.4 MCH 29.5 MCHC 33.8 RDW 14.6 Plt Count 228 MPV 10.1 Immature Gran % (Auto) Cancelled Neut % (Auto) Cancelled Lymph % (Auto) Cancelled [place] % (Auto) Cancelled Eos % (Auto) Cancelled Baso % (Auto) Cancelled Lymph # (Auto) Cancelled [place] # (Auto) Cancelled Eos # (Auto) Cancelled Baso # (Auto) Cancelled Abs Immat Gran (auto) Cancelled Absolute Neuts (auto) Cancelled Absolute Nucleated RBC 0.000 Nucleated RBC % (auto) 0.0 Neutrophils % (Manual) 66 Band Neutrophils % 6 H Lymphocytes % (Manual) 14 L Atypical Lymphs % (Man) 5 Monocytes % (Manual) 6 Eosinophils % (Manual) 2 Metamyelocytes % 1 Abs Neuts (Manual) 9.5 H Lymphocytes # (Manual) 1.8 Atyp Lymphs # (Manual) 0.7 Monocytes # (Manual) 0.8 Eosinophils # (Manual) 0.3 Metamyelocytes # 0.1 Platelet Estimate NORMAL Plt Morphology Comment NORMAL RBC Morphology NORMAL Microbiology Microbiology Results: Microbiology 11/21/23 15:28 Urine Culture - Final Urine clean catch - Urine bauer top Escherichia coli 11/21/23 17:57 Blood Culture - Preliminary Blood - Venous No growth after 24 hours. 11/21/23 17:42 Blood Culture - Preliminary Blood - Venous No growth after 24 hours. 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 Pt will be admitted to the hospital for treatment and further evaluation of acute encephalopathy in the setting of acute UTI with sepsis. #Acute metabolic encephalopathy in the setting of UTI with sepsis -Patient with reported confusion, vivid nightmares, polyuria, dysuria, and increased urinary incontinence x1 week- a&x3 this am but somewhat agitated/confused -IV ceftriaxone (initiated 11/20) -Cbc trending down, stable. UC growing fitzgerald sensitive CTX -monitor mentation #Sepsis -present on admission, not with new fever 101.9, tachycardia, tachypnea (11/22 11:30) -WBC 12.8 this am. Recheck lactic acid, blood cultures -continue CTX for now. Has known UTI as above growing fitzgerald sensitive e coli -check CXR, covid/flu/rsv #Frequent falls at home -Patient with 3+ falls outside while doing yard work in the past week and a half -Imaging negative for acute fractures or intracranial pathology -PT evaluation- recommending STR #Skin lesions -Pt with lesions on right arm and perioral, especially on b/l side of lips crossing vermilion border -given bilateral/multiple dermatomal involvement and lack intact vesicles, less suspicious for shingles. More likely related to acute contact dermatitis secondary to poison donell/sumac -patient not irritated, consider adding antihistamine, topical corticosteroid -tick fitzgerald pending -monitor for now #HTN -Continue valsartan #EARNESTINE -On BiPAP at night #Subclinical hypothyroidism -Patient's TSH low at 0.28 with T4 WNL at 1.13 -Follow-up outpatient for repeat labs in 3-6 months DVT prophylaxis-Lovenox Full code Patient requires ongoing inpatient hospitalization due to UTI with sepsis and acute metabolic encephalopathy requiring IV antibiotics and close monitoring of mentation Quality Stroke Does the patient have a stroke diagnosis?: No VTE Prior VTE?: No VTE Risk Level:: Medical - moderate - high VTE Device Contraindication: Treatment Not Indicated VTE Drug Contraindication: N/A - Med Ordered
[2023-11-23 07:48] LABS: Band Neutrophils Percent 4 % (3-5); Basophils Abs Manual 0.1 X10*3/uL (0.0-0.2); Basophils Percent Manual 1 % (0-2); Eosinophils Absolute Manual 0.1 X10*3/uL (0.0-0.4); Eosinophils Percent Manual 1 % (0-4); Lymphocytes Absolute Manual 0.5 X10*3/uL (1.2-4.9); Lymphocytes Percent Manual 4 % (20-40); Metamyelocytes Absolute 0.1 X10*3/uL; Metamyelocytes Percent 1 %; Monocytes Absolute Manual 0.3 X10*3/uL (0.1-1.2); Monocytes Percent Manual 2 % (2-11); Myelocytes Absolute 0.1 X10*/uL; Myelocytes Percent 1 %; Neutrophils Absolute Manual 11.5 X10*3/uL (2.0-8.3); Neutrophils Percent Manual 86 % (45-73)
[2023-11-23 07:50] LABS: Platelet Estimate NORMAL (NORMAL); Platelet Morphology Comment NORMAL; RBC Morphology NORMAL
--- NOTE | 2023-11-23 08:23 | MHC.CM.PN ---
CM met with Patient at bedside and assisted him with the completion of a HCP; he named his Daughter/Gloria as his Agent and his Sister/Cyndee as the Alternate.Patient lives in a house with his 96 year old Mother and he uses a cane for short distances and a w/c for longer distances. PT is recommending STR and CM has initiated and will follow for dc planning. PCP is Dr. Royal Hill.
[2023-11-23] MEDS: Valsartan 160 MG TABLET PO (09:51)
[2023-11-23] MEDS: Cholecalciferol (Vitamin D3) 25 MCG TABLET PO (09:51)
[2023-11-23] MEDS: Acetaminophen 325 MG TABLET 650 MG PO (11:26)
[2023-11-23 15:03] LABS: Influenza A PCR NEGATIVE (Negative); Influenza B PCR NEGATIVE (Negative); Resp Syncy Virus RNA Qual PCR NEGATIVE (Negative); SARS COV2 PCR INHOUSE NEGATIVE (Negative)
[2023-11-23] MEDS: cefTRIAXone sodium 1 GM in 0.9 % Sodium Chloride 50 ML IV (21:28)
[2023-11-23] MEDS: Enoxaparin Sodium 40 MG/0.4 ML SYRINGE SUBCUT (21:29)
[2023-11-24] VITALS (8 sets, daily range): BP systolic 113–137; BP diastolic 70–80; PULSE 82–101; RESP 18–20; TEMP 36.5–37.2; O2SAT 92–96
--- NOTE | 2023-11-24 | PC.NURSE ---
pt temp 102.4.dr garcia notified.ok to give tylenol since labs,cxr done earlier today for increased temp.
[2023-11-24] MEDS: Acetaminophen 325 MG TABLET 650 MG PO (00:15)
[2023-11-24] MEDS: 0.9 % Sodium Chloride Flush 3 ML SYRINGE IVFLUSH ×3 (00:15→17:09)
[2023-11-24 06:30] LABS: Hemoglobin 14.2 g/dl (14.0-18.0); Mean Corpuscular Volume 87.8 fL (80.0-98.0); Mean Platelet Volume 9.8 fL (9.4-12.4); Platelet Count 223 X10*3/uL (160-400); Red Cell Distribution Width 14.6 % (11.0-16.0); White Blood Count 16.4 X10*3/uL (4.8-10.8)
[2023-11-24 07:22] LABS: Glucose, Whole Blood 123 mg/dL (60-115)
[2023-11-24 07:34] LABS: Band Neutrophils Percent 5 % (3-5); Lymphocytes Percent Manual 6 % (20-40); Monocytes Absolute Manual 0.3 X10*3/uL (0.1-1.2); Monocytes Percent Manual 2 % (2-11); Myelocytes Absolute 0.2 X10*/uL; Myelocytes Percent 1 %; Neutrophils Absolute Manual 14.9 X10*3/uL (2.0-8.3); Neutrophils Percent Manual 86 % (45-73)
[2023-11-24 07:35] LABS: Burr Cells 1+ (0-2) /OIF; RBC Morphology NOTED
[2023-11-24 07:36] LABS: Platelet Estimate NORMAL (NORMAL); Platelet Morphology Comment NORMAL
[2023-11-24] MEDS: Cholecalciferol (Vitamin D3) 25 MCG TABLET PO (08:22)
[2023-11-24] MEDS: Valsartan 160 MG TABLET PO (08:22)
[2023-11-24 08:49] LABS: Alanine Aminotransferase 45 U/L (0-40); Albumin Level 3.2 g/dL (3.5-5.0); Alkaline Phosphatase 23 U/L (39-117); Anion Gap 18 (12-20); Aspartate Amino Transferase 29 U/L (5-37); Bilirubin Total 0.6 mg/dL (0.0-1.0); Blood Urea Nitrogen 21 mg/dL (9-16); C Reactive Protein 10.67 mg/dL (< or = 0.50); Calcium 9.2 mg/dL (8.4-10.2); Carbon Dioxide 21 mmol/L (22-29); Chloride 101 mmol/L (96-108); Creatinine Clr Calc Pharmacy 80.7; Estimated Glomerular Filt Rate > 60; Glucose Random 128 mg/dL (60-115); Potassium 4.3 mmol/L (3.3-5.1); Sodium 136 mmol/L (135-145)
[2023-11-24 09:05] LABS: Procalcitonin 0.89 ng/mL
--- NOTE | 2023-11-24 09:44 | P.CNNE_ITS ---
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 He thought he was having another stroke. Now he was feeling better. Review of Systems 2 Review of Systems: Generalized weakness and unsteadiness PMFSH Past Medical History Medical History Hypertension Social History Social History Household Members: Family Housing: House Do you presently have visiting nurse or other home services: No Patient Tobacco Use Status: Never used Tobacco service: Yes Meds Allergies Allergy/AdvReac Type Severity Reaction Status Date / Time KAY Inhibitors Allergy Severe SWELLING Verified 11/21/23 10:15 [KAY INHIBITORS] ciprofloxacin [CIPROFLOXACIN] Allergy Severe SWELLING Verified 11/21/23 10:15 gabapentin [GABAPENTIN] Allergy Severe ANAPHYLAXIS Verified 11/21/23 10:15 erythromycin base Allergy Intermediate SHORTNESS Verified 11/21/23 10:15 [ERYTHROMYCIN BASE] OF BREATH ibuprofen [From MOTRIN] Allergy Intermediate HIVES Verified 11/21/23 10:15 SERATONIN Allergy Severe SERATONIN Uncoded 03/16/20 16:39 SYNDROME Active Medications: Current Medications Acetaminophen (Acetaminophen 325 Mg Tablet) 650 mg PO Q6H PRN PRN Reason: Pain, Mild (Pain Scale 1-3) Last Admin: 11/24/23 00:15 Dose: 650 mg Enoxaparin Sodium (Enoxaparin Sodium 40 Mg/0.4 Ml Syringe) 40 mg SUBCUT Q24H [facility] Last Admin: 11/23/23 21:29 Dose: 40 mg Ceftriaxone Sodium 1 gm/ (Sodium Chloride) 50 mls @ 100 mls/hr IV Q24H [facility] Last Infusion: 11/23/23 22:04 Dose: Infused Melatonin (Melatonin 3 Mg Tablet) 6 mg PO BEDTIME PRN PRN Reason: Insomnia Ondansetron HCl (Ondansetron Hcl 4 Mg/2 Ml Vial) 4 mg IVPUSH Q8H PRN PRN Reason: Nausea and Vomiting Sodium Chloride (0.9 % Sodium Chloride Flush 3 Ml Syringe) 3 ml IVFLUSH QSHIFT [facility] Last Admin: 11/24/23 08:22 Dose: 3 ml Valsartan (Valsartan 160 Mg Tablet) 160 mg PO DAILY@0900 [facility]; Protocol Last Admin: 11/24/23 08:22 Dose: 160 mg Vitamin D (Cholecalciferol (Vitamin D3) 25 Mcg Tablet) 25 mcg PO DAILY@0900 [facility] Last Admin: 11/24/23 08:22 Dose: 25 mcg Home Medications ?Medication ?Instructions ?Recorded ?Confirmed ?Last Taken ?Type cholecalciferol (vitamin D3) 25 25 mcg PO QAM 11/21/23 11/21/23 11/21/23 History mcg (1,000 unit) tablet (Vitamin D3) valsartan 160 mg tablet 160 mg PO QAM 11/21/23 11/21/23 11/21/23 History Physical Exam 2 Vital Signs: Vital Signs: Last Vital Signs Temp 98.1 F 11/24/23 07:46 Pulse 82 11/24/23 07:46 Resp 20 11/24/23 07:46 BP 120/80 11/24/23 07:46 Pulse Ox 95 11/24/23 07:46 O2 Del Method Room Air 11/24/23 07:46 BMI result Body Mass Index 29.6 Neuro: Other: He is alert and awake with normal spontaneity of speech fluency comprehension and affect. He is wearing patchy in left eye. There is significant left-sided peripheral type facial weakness. Right pupil is round reactive and extraocular muscles and right eye are intact. There is mild right hemiparesis. Results Labs 11/24/23 05:59 11/24/23 08:00 Labs: Short CBC 11/24/23 Range/Units 05:59 WBC 16.4 H (4.8-10.8) X10*3/uL Hgb 14.2 (14.0-18.0) g/dl Hct 43.0 (42.0-52.0) % Plt Count 223 (160-400) X10*3/uL BMP 11/24/23 08:00 Sodium 136 Potassium 4.3 Chloride 101 Carbon Dioxide 21 L BUN 21 H Creatinine 0.95 Calcium 9.2 Liver Function 11/24/23 Range/Units 08:00 Total Bilirubin 0.6 (0.0-1.0) mg/dL AST 29 (5-37) U/L ALT 45 H (0-40) U/L Alkaline Phosphatase 23 L (39-117) U/L Albumin 3.2 L (3.5-5.0) g/dL Head CT revealed large area of encephalomalacia and mid zully. Also noted is significant cerebellar especially midline cerebellar atrophy. Microbiology Microbiology Results: Microbiology 11/21/23 17:57 Blood - Venous Blood Culture - Preliminary No growth after 48 hours. 11/21/23 17:42 Blood - Venous Blood Culture - Preliminary No growth after 48 hours. 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 His head CT also reveals significant cerebellar especially midline cerebellar atrophy. Combination of these features resulted in unsteadiness and difficulty with walking. This was a permanent condition and it could easily get worse if he was sick for some other reason or has taken a medicine that would make him or unsteady. To avoid falling and accidents, he should always use a walker or wheelchair. There is no particular treatment otherwise. He should not drink alcohol as alcohol is 1 of the main reasons for this type of cerebellar atrophy. Procedures Date of Service Date of Service: 11/24/23
--- NOTE | 2023-11-24 13:51 | HO.PM.IMPN ---
Subjective Subjective Date of Service: 11/24/23 Interval History: febrile to 102.4 at midnight frequent exposure to vegetation/unknown if had tick bite denies abd pain no cough no dysuria no rectal pain states itchy rash around mouth getting better Review of Systems Review of Systems: Yes all other systems are reviewed and are negative Physical Exam Vital Signs: Vital Signs: Last Vital Signs Temp 98.1 F 11/24/23 11:34 Pulse 100 11/24/23 11:34 Resp 18 11/24/23 11:34 BP 117/74 11/24/23 11:34 Pulse Ox 92 11/24/23 11:34 O2 Del Method Room Air 11/24/23 11:34 BMI result Body Mass Index 29.6 Gen: in no acute distress HEENT: sclera anicteric, moist mucus membranes Neck: supple Lungs: clear to auscultation bilaterally Heart: regular rate and rhythm, no murmurs Abd: soft, non-tender, non-distended Ext: no edema Skin: warm/well-perfused, scabbed papules around mouth and on arms Neuro: alert and oriented x3, L facial droop, L hemiparesis Psych: appropriate affect Objective Data Active Medications Acetaminophen (Acetaminophen 325 Mg Tablet) 650 mg PO Q6H PRN PRN Reason: Pain, Mild (Pain Scale 1-3) Last Admin: 11/24/23 00:15 Dose: 650 mg Documented By: CURRY Doxycycline Monohydrate (Doxycycline Monohydrate 100 Mg Capsule) 100 mg PO BID [facility] Enoxaparin Sodium (Enoxaparin Sodium 40 Mg/0.4 Ml Syringe) 40 mg SUBCUT Q24H [facility] Last Admin: 11/23/23 21:29 Dose: 40 mg Documented By: MATEO Ceftriaxone Sodium 1 gm/ (Sodium Chloride) 50 mls @ 100 mls/hr IV Q24H [facility] Last Infusion: 11/23/23 22:04 Dose: Infused Documented By: MATEO Melatonin (Melatonin 3 Mg Tablet) 6 mg PO BEDTIME PRN PRN Reason: Insomnia Ondansetron HCl (Ondansetron Hcl 4 Mg/2 Ml Vial) 4 mg IVPUSH Q8H PRN PRN Reason: Nausea and Vomiting Sodium Chloride (0.9 % Sodium Chloride Flush 3 Ml Syringe) 3 ml IVFLUSH QSHIFT [facility] Last Admin: 11/24/23 08:22 Dose: 3 ml Documented By: MILAGROS Valsartan (Valsartan 160 Mg Tablet) 160 mg PO DAILY@0900 [facility]; Protocol Last Admin: 11/24/23 08:22 Dose: 160 mg Documented By: MILAGROS Vitamin D (Cholecalciferol (Vitamin D3) 25 Mcg Tablet) 25 mcg PO DAILY@0900 [facility] Last Admin: 11/24/23 08:22 Dose: 25 mcg Documented By: MILAGROS Labs 11/24/23 05:59 11/24/23 08:00 Labs: Laboratory Results - last 24 hr 11/23/23 11/24/23 11/24/23 13:45 05:59 07:04 MCV 87.8 MCH 29.0 MCHC 33.0 RDW 14.6 Plt Count 223 MPV 9.8 Immature Gran % (Auto) Cancelled Neut % (Auto) Cancelled Lymph % (Auto) Cancelled [place] % (Auto) Cancelled Eos % (Auto) Cancelled Baso % (Auto) Cancelled Lymph # (Auto) Cancelled [place] # (Auto) Cancelled Eos # (Auto) Cancelled Baso # (Auto) Cancelled Abs Immat Gran (auto) Cancelled Absolute Neuts (auto) Cancelled Absolute Nucleated RBC 0.000 Nucleated RBC % (auto) 0.0 Neutrophils % (Manual) 86 H Band Neutrophils % 5 Lymphocytes % (Manual) 6 L Monocytes % (Manual) 2 Myelocytes % 1 Abs Neuts (Manual) 14.9 H Lymphocytes # (Manual) 1.0 L Monocytes # (Manual) 0.3 Myelocytes # 0.2 Platelet Estimate NORMAL Plt Morphology Comment NORMAL RBC Morphology NOTED Valentine Cells 1+ (0-2) Anion Gap Estim Creat Clear Calc Estimated GFR POC Glucose 123 H Random Glucose Calcium Total Bilirubin AST ALT Alkaline Phosphatase C-Reactive Protein Total Protein Albumin Procalcitonin Influenza Type A (PCR) NEGATIVE Influenza Type B (PCR) NEGATIVE RSV RNA Qual (PCR) NEGATIVE SARS-CoV-2 RNA (RT-PCR) NEGATIVE 11/24/23 08:00 MCV MCH MCHC RDW Plt Count MPV Immature Gran % (Auto) Neut % (Auto) Lymph % (Auto) [place] % (Auto) Eos % (Auto) Baso % (Auto) Lymph # (Auto) [place] # (Auto) Eos # (Auto) Baso # (Auto) Abs Immat Gran (auto) Absolute Neuts (auto) Absolute Nucleated RBC Nucleated RBC % (auto) Neutrophils % (Manual) Band Neutrophils % Lymphocytes % (Manual) Monocytes % (Manual) Myelocytes % Abs Neuts (Manual) Lymphocytes # (Manual) Monocytes # (Manual) Myelocytes # Platelet Estimate Plt Morphology Comment RBC Morphology Valentine Cells Anion Gap 18 Estim Creat Clear Calc 80.7 Estimated GFR > 60 POC Glucose Random Glucose 128 H Calcium 9.2 Total Bilirubin 0.6 AST 29 ALT 45 H Alkaline Phosphatase 23 L C-Reactive Protein 10.67 H Total Protein 7.0 Albumin 3.2 L Procalcitonin 0.89 Influenza Type A (PCR) Influenza Type B (PCR) RSV RNA Qual (PCR) SARS-CoV-2 RNA (RT-PCR) Microbiology Microbiology Results: Microbiology 11/23/23 11:40 Blood Culture - Preliminary Blood - Venous No growth after 24 hours. 11/23/23 11:40 Blood Culture - Preliminary Blood - Venous No growth after 24 hours. 11/21/23 17:57 Blood Culture - Preliminary Blood - Venous No growth after 48 hours. 11/21/23 17:42 Blood Culture - Preliminary Blood - Venous No growth after 48 hours. 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, HTN, EARNESTINE on BiPAP admitted for encephalopathy and sepsis attributed to UTI sepsis due to UTI, E coli I to levofloxacin - ceftriaxone 11/20- fever - unclear why still febrile; will check tickborne molecular panel and start doxycycline 11/23-; also check CT A/P, consult ID acute encephalopathy due to infection - resolved, mental status normal now, appreciate Neuro consult skin lesions - likely contact dermatitis due to poison donell, will give topical hydrocortisone prn frequent falls - PT evaluation: STR recomended HTN - valsartan EARNESTINE - BiPAP at night subclinical hypothyroidism - repeat TFTs in 3 mo VTE ppx - LMWH dispo - STR In my clinical judgment, the patient requires continued inpatient hospitalization for the following reasons: fever, IV ABX Total time managing care of this patient today: 35 minutes. Quality Stroke Does the patient have a stroke diagnosis?: No VTE Prior VTE?: No VTE Risk Level:: Medical - moderate - high VTE Device Contraindication: Treatment Not Indicated VTE Drug Contraindication: N/A - Med Ordered
[2023-11-24] MEDS: Doxycycline Monohydrate 100 MG CAPSULE PO ×2 (14:12→20:59)
--- NOTE | 2023-11-24 15:32 | MHC.CM.PN ---
EMR reviewed and per MD rounds, pt is not medically cleared for discharge due to management of fever/UTI with IV abx, and pending ID consult.
[2023-11-24] MEDS: iohexoL 350 MG/ML 100 ML INFUS..BTL IV (18:34)
[2023-11-24] MEDS: cefTRIAXone sodium 1 GM in 0.9 % Sodium Chloride 50 ML IV (20:52)
[2023-11-24] MEDS: Enoxaparin Sodium 40 MG/0.4 ML SYRINGE SUBCUT (20:52)
[2023-11-24 22:46] LABS: Glucose, Whole Blood 170 mg/dL (60-115)
[2023-11-25] MEDS: 0.9 % Sodium Chloride Flush 3 ML SYRINGE IVFLUSH ×4 (01:15→21:02)
[2023-11-25 03:12] VITALS: BP 133/70; PULSE 86; RESP 18; TEMP 37.1; O2SAT 94
[2023-11-25 07:24] VITALS: BP 123/76; PULSE 84; RESP 16; TEMP 36.5; O2SAT 95
[2023-11-25 07:30] LABS: Hematocrit 45.8 % (42.0-52.0); Hemoglobin 15.4 g/dl (14.0-18.0); Mean Corpuscular HGB Conc 33.6 g/dl (31.0-36.0); Mean Corpuscular Hemoglobin 29.3 pg (27.0-33.0); Mean Corpuscular Volume 87.1 fL (80.0-98.0); Mean Platelet Volume 9.9 fL (9.4-12.4); Platelet Count 234 X10*3/uL (160-400); Red Blood Count 5.26 X10*6/uL (4.60-5.80); Red Cell Distribution Width 14.6 % (11.0-16.0); White Blood Count 11.5 X10*3/uL (4.8-10.8)
[2023-11-25 07:44] LABS: Anion Gap 14 (12-20); Blood Urea Nitrogen 20 mg/dL (9-16); Calcium 9.1 mg/dL (8.4-10.2); Carbon Dioxide 26 mmol/L (22-29); Chloride 100 mmol/L (96-108); Creatinine Clr Calc Pharmacy 80.7; Estimated Glomerular Filt Rate > 60; Glucose Random 138 mg/dL (60-115); Potassium 4.1 mmol/L (3.3-5.1); Sodium 136 mmol/L (135-145)
[2023-11-25 08:16] VITALS: BP 123/76
[2023-11-25] MEDS: Doxycycline Monohydrate 100 MG CAPSULE PO ×2 (08:16→20:54)
[2023-11-25] MEDS: Valsartan 160 MG TABLET PO (08:16)
[2023-11-25] MEDS: Cholecalciferol (Vitamin D3) 25 MCG TABLET PO (08:16)
[2023-11-25 08:37] LABS: Syphilis Screen Nonreactive (Nonreactive)
[2023-11-25 08:38] LABS: HIV AB/AG Nonreactive (Nonreactive); HIV Num 1 0.41 S/CO (0.00-0.99)
[2023-11-25 10:44] VITALS: BP 125/69; PULSE 93; RESP 18; TEMP 36; O2SAT 93
--- NOTE | 2023-11-25 10:48 | HO.PM.IMPN ---
Subjective Subjective Date of Service: 11/25/23 Interval History: afebrile minimal itchiness of rash around mouth no abd pain/flank pain Review of Systems Review of Systems: Yes all other systems are reviewed and are negative Physical Exam Vital Signs: Vital Signs: Last Vital Signs Temp 96.8 F 11/25/23 10:44 Pulse 93 11/25/23 10:44 Resp 18 11/25/23 10:44 BP 125/69 11/25/23 10:44 Pulse Ox 93 11/25/23 10:44 O2 Del Method Room Air 11/25/23 10:44 BMI result Body Mass Index 29.6 Gen: in no acute distress HEENT: sclera anicteric, moist mucus membranes Neck: supple Lungs: clear to auscultation bilaterally Heart: regular rate and rhythm, no murmurs Abd: soft, non-tender, non-distended Ext: no edema Skin: warm/well-perfused, scabbed papules around mouth and on arms Neuro: alert and oriented x3, L facial droop, L hemiparesis Psych: appropriate affect Objective Data Active Medications Acetaminophen (Acetaminophen 325 Mg Tablet) 650 mg PO Q6H PRN PRN Reason: Pain, Mild (Pain Scale 1-3) Last Admin: 11/24/23 00:15 Dose: 650 mg Documented By: CURRY Doxycycline Monohydrate (Doxycycline Monohydrate 100 Mg Capsule) 100 mg PO BID [facility] Last Admin: 11/25/23 08:16 Dose: 100 mg Documented By: PODMORP Enoxaparin Sodium (Enoxaparin Sodium 40 Mg/0.4 Ml Syringe) 40 mg SUBCUT Q24H [facility] Last Admin: 11/24/23 20:52 Dose: 40 mg Documented By: SANDRA Hydrocortisone (Hydrocortisone 1 % Cream 28.35 Gm Tube) 1 appl TOPICAL BID PRN; Protocol PRN Reason: Itching Ceftriaxone Sodium 1 gm/ (Sodium Chloride) 50 mls @ 100 mls/hr IV Q24H [facility] Last Infusion: 11/24/23 22:00 Dose: Infused Documented By: SANDRA Melatonin (Melatonin 3 Mg Tablet) 6 mg PO BEDTIME PRN PRN Reason: Insomnia Ondansetron HCl (Ondansetron Hcl 4 Mg/2 Ml Vial) 4 mg IVPUSH Q8H PRN PRN Reason: Nausea and Vomiting Sodium Chloride (0.9 % Sodium Chloride Flush 3 Ml Syringe) 3 ml IVFLUSH QSHIFT [facility] Last Admin: 11/25/23 08:15 Dose: 3 ml Documented By: PODMORP Valsartan (Valsartan 160 Mg Tablet) 160 mg PO DAILY@0900 [facility]; Protocol Last Admin: 11/25/23 08:16 Dose: 160 mg Documented By: PODMORP Vitamin D (Cholecalciferol (Vitamin D3) 25 Mcg Tablet) 25 mcg PO DAILY@0900 [facility] Last Admin: 11/25/23 08:16 Dose: 25 mcg Documented By: PODMORP Labs 11/25/23 06:43 11/25/23 06:43 Labs: Laboratory Results - last 24 hr 11/24/23 11/24/23 11/25/23 08:00 22:42 06:43 MCV 87.1 MCH 29.3 MCHC 33.6 RDW 14.6 Plt Count 234 MPV 9.9 Absolute Nucleated RBC 0.000 Nucleated RBC % (auto) 0.0 Anion Gap 14 Estim Creat Clear Calc 80.7 Estimated GFR > 60 POC Glucose 170 H Random Glucose 138 H Calcium 9.1 T.pallidum Ab (EIA) Nonreactive HIV 1&2 Ab/P24 Ag 4thGn Nonreactive Microbiology Microbiology Results: Microbiology 11/23/23 11:40 Blood Culture - Preliminary Blood - Venous No growth after 24 hours. 11/23/23 11:40 Blood Culture - Preliminary Blood - Venous No growth after 24 hours. 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 ID consult and CT A/P read pending acute encephalopathy due to infection - resolved, mental status normal now, appreciate Neuro consult skin lesions - likely contact dermatitis due to poison donell, give topical hydrocortisone prn frequent falls - PT evaluation: STR recommended HTN - valsartan EARNESTINE - BiPAP at night subclinical hypothyroidism - repeat TFTs in 3 mo VTE ppx - LMWH dispo - STR In my clinical judgment, the patient requires continued inpatient hospitalization for the following reasons: fever, IV ABX, ID consultation Total time managing care of this patient today: 35 minutes. Quality Stroke Does the patient have a stroke diagnosis?: No VTE Prior VTE?: No VTE Risk Level:: Medical - moderate - high VTE Device Contraindication: Treatment Not Indicated VTE Drug Contraindication: N/A - Med Ordered
[2023-11-25 11:29] LABS: Glucose, Whole Blood 157 mg/dL (60-115)
--- NOTE | 2023-11-25 13:50 | P.CNID_ITS ---
History of Present Illness Data of Consult Service Date: 11/25/23 Requesting physician: Paz Ramos Primary Care Provider: Royal Hill MD HPI Reason for consult: sepsis He presents with fever and met sepsis criteria. He has had fever despite Ceftriaxone. He has CT 6mm prostate nodule. He was reported to have rash right mouth and arm thought to be shingles but resolved. He has had CVA and has facial weakness. Review of Systems 2 Review of Systems: Yes all other systems are reviewed and are negative [facility] Past Medical History Medical History (Updated 11/25/23 @ 13:56 by Erika White MD) Sepsis Hypertension Family History Family history: reviewed and not pertinent Social History Social History Household Members: Family Housing: House Do you presently have visiting nurse or other home services: No Patient Tobacco Use Status: Never used Tobacco service: Yes Meds Allergies Allergy/AdvReac Type Severity Reaction Status Date / Time KAY Inhibitors Allergy Severe SWELLING Verified 11/21/23 10:15 [KAY INHIBITORS] ciprofloxacin [CIPROFLOXACIN] Allergy Severe SWELLING Verified 11/21/23 10:15 gabapentin [GABAPENTIN] Allergy Severe ANAPHYLAXIS Verified 11/21/23 10:15 erythromycin base Allergy Intermediate SHORTNESS Verified 11/21/23 10:15 [ERYTHROMYCIN BASE] OF BREATH ibuprofen [From MOTRIN] Allergy Intermediate HIVES Verified 11/21/23 10:15 SERATONIN Allergy Severe SERATONIN Uncoded 03/16/20 16:39 SYNDROME Active Medications: Current Medications Acetaminophen (Acetaminophen 325 Mg Tablet) 650 mg PO Q6H PRN PRN Reason: Pain, Mild (Pain Scale 1-3) Last Admin: 11/24/23 00:15 Dose: 650 mg Doxycycline Monohydrate (Doxycycline Monohydrate 100 Mg Capsule) 100 mg PO BID [facility] Last Admin: 11/25/23 08:16 Dose: 100 mg Enoxaparin Sodium (Enoxaparin Sodium 40 Mg/0.4 Ml Syringe) 40 mg SUBCUT Q24H [facility] Last Admin: 11/24/23 20:52 Dose: 40 mg Hydrocortisone (Hydrocortisone 1 % Cream 28.35 Gm Tube) 1 appl TOPICAL BID PRN; Protocol PRN Reason: Itching Ceftriaxone Sodium 1 gm/ (Sodium Chloride) 50 mls @ 100 mls/hr IV Q24H [facility] Last Infusion: 11/24/23 22:00 Dose: Infused Melatonin (Melatonin 3 Mg Tablet) 6 mg PO BEDTIME PRN PRN Reason: Insomnia Ondansetron HCl (Ondansetron Hcl 4 Mg/2 Ml Vial) 4 mg IVPUSH Q8H PRN PRN Reason: Nausea and Vomiting Sodium Chloride (0.9 % Sodium Chloride Flush 3 Ml Syringe) 3 ml IVFLUSH QSHIFT [facility] Last Admin: 11/25/23 08:15 Dose: 3 ml Valsartan (Valsartan 160 Mg Tablet) 160 mg PO DAILY@0900 [facility]; Protocol Last Admin: 11/25/23 08:16 Dose: 160 mg Vitamin D (Cholecalciferol (Vitamin D3) 25 Mcg Tablet) 25 mcg PO DAILY@0900 [facility] Last Admin: 11/25/23 08:16 Dose: 25 mcg Home Medications ?Medication ?Instructions ?Recorded ?Confirmed ?Last Taken ?Type cholecalciferol (vitamin D3) 25 25 mcg PO QAM 11/21/23 11/21/23 11/21/23 History mcg (1,000 unit) tablet (Vitamin D3) valsartan 160 mg tablet 160 mg PO QAM 11/21/23 11/21/23 11/21/23 History Physical Exam 2 Vital Signs: Vital Signs: Last Vital Signs Temp 96.8 F 11/25/23 10:44 Pulse 93 11/25/23 10:44 Resp 18 11/25/23 10:44 BP 125/69 11/25/23 10:44 Pulse Ox 93 11/25/23 10:44 O2 Del Method Room Air 11/25/23 10:44 BMI result Body Mass Index 29.6 Const: General: cooperative HEENT: Head: Yes normal to inspection Face and sinus: Yes normal facial exam Mouth: Normal oral and palatal mucosa present Teeth and gingiva: d entition normal Eyes: General: appearance normal, both eyes and all related structures P upils: Equal, round and reactive pupils present Resp: Effort & Inspection: normal respiratory effort Cardio: Rate: regular rate Rhythm: regular rhythm GI: Palpation (GI): Soft to palpation and nontender : General: Yes no CVA tenderness Back/Spine/Pelvis: Back: no CVA tenderness Skin: General skin exam: no rashes or lesions noted Neuro: General: moves all extremities Cranial nerves: Yes Equal, round and reactive pupils present Extrem: General: Yes normal to inspection Psych: Appearance: grossly normal Results Labs 11/25/23 06:43 11/25/23 06:43 Labs: Short CBC 11/25/23 Range/Units 06:43 WBC 11.5 H (4.8-10.8) X10*3/uL Hgb 15.4 (14.0-18.0) g/dl Hct 45.8 (42.0-52.0) % Plt Count 234 (160-400) X10*3/uL BMP 11/25/23 06:43 Sodium 136 Potassium 4.1 Chloride 100 Carbon Dioxide 26 BUN 20 H Creatinine 0.95 Calcium 9.1 Microbiology Microbiology Results: Microbiology 11/23/23 11:40 Blood - Venous Blood Culture - Preliminary No growth after 48 hours. 11/23/23 11:40 Blood - Venous Blood Culture - Preliminary No growth after 48 hours. 11/21/23 17:57 Blood - Venous Blood Culture - Preliminary No growth after 48 hours. 11/21/23 17:42 Blood - Venous Blood Culture - Preliminary No growth after 48 hours. 11/21/23 15:28 Urine clean catch - Urine bauer top Urine Culture - Final Escherichia coli Assessment and Plan (1) Acute encephalopathy: Status: Acute (2) Urinary tract infection: Qualifiers: Hematuria presence: without hematuria Urinary tract infection type: a cute cystitis Qualified Code(s): N30.00 - Acute cystitis without hematuria Status: Acute (3) Sepsis: Status: Acute Plan Sepsis with fever and leukocytosis,likely due to UTI. Rash has resolved,doubt tick borne but possible. 10 d po cephalosporin and Doxcycycline
--- NOTE | 2023-11-25 15:23 | P.CNUR_ITS ---
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 Patient with large CVA in 2008 with significant left-sided hemiparesis. Uses cane and walker for ambulation. Admitted on 11/21/23, found to have UTI, urine c/s E. coli. Blood cultures no growth. Called to evaluate due to enlarged prostate and 6 mm cyst in prostate, concern for abscess.. The area in question is subcentimeter and would not require drainage or aspiration. The patient has also been evaluated by ID who maderecommendations for Antibiotics. Recommend flomax and proscar. out pt urology fu. Review of Systems 2 Review of Systems: 10 point ROS negative other than stated [facility] Past Medical History Medical History (Updated 11/25/23 @ 15:34 by Rose Fuentes MD) Sepsis Hypertension Family History Family history: reviewed and not pertinent Social History Social History Household Members: Family Housing: House Do you presently have visiting nurse or other home services: No Patient Tobacco Use Status: Never used Tobacco service: Yes Meds Allergies Allergy/AdvReac Type Severity Reaction Status Date / Time KAY Inhibitors Allergy Severe SWELLING Verified 11/21/23 10:15 [KAY INHIBITORS] ciprofloxacin [CIPROFLOXACIN] Allergy Severe SWELLING Verified 11/21/23 10:15 gabapentin [GABAPENTIN] Allergy Severe ANAPHYLAXIS Verified 11/21/23 10:15 erythromycin base Allergy Intermediate SHORTNESS Verified 11/21/23 10:15 [ERYTHROMYCIN BASE] OF BREATH ibuprofen [From MOTRIN] Allergy Intermediate HIVES Verified 11/21/23 10:15 SERATONIN Allergy Severe SERATONIN Uncoded 03/16/20 16:39 SYNDROME Active Medications: Current Medications Acetaminophen (Acetaminophen 325 Mg Tablet) 650 mg PO Q6H PRN PRN Reason: Pain, Mild (Pain Scale 1-3) Last Admin: 11/24/23 00:15 Dose: 650 mg Doxycycline Monohydrate (Doxycycline Monohydrate 100 Mg Capsule) 100 mg PO BID SHARMAINE Last Admin: 11/25/23 08:16 Dose: 100 mg Enoxaparin Sodium (Enoxaparin Sodium 40 Mg/0.4 Ml Syringe) 40 mg SUBCUT Q24H [facility] Last Admin: 11/24/23 20:52 Dose: 40 mg Hydrocortisone (Hydrocortisone 1 % Cream 28.35 Gm Tube) 1 appl TOPICAL BID PRN; Protocol PRN Reason: Itching Ceftriaxone Sodium 1 gm/ (Sodium Chloride) 50 mls @ 100 mls/hr IV Q24H [facility] Last Infusion: 11/24/23 22:00 Dose: Infused Melatonin (Melatonin 3 Mg Tablet) 6 mg PO BEDTIME PRN PRN Reason: Insomnia Ondansetron HCl (Ondansetron Hcl 4 Mg/2 Ml Vial) 4 mg IVPUSH Q8H PRN PRN Reason: Nausea and Vomiting Sodium Chloride (0.9 % Sodium Chloride Flush 3 Ml Syringe) 3 ml IVFLUSH QSHIFT [facility] Last Admin: 11/25/23 08:15 Dose: 3 ml Valsartan (Valsartan 160 Mg Tablet) 160 mg PO DAILY@0900 [facility]; Protocol Last Admin: 11/25/23 08:16 Dose: 160 mg Vitamin D (Cholecalciferol (Vitamin D3) 25 Mcg Tablet) 25 mcg PO DAILY@0900 [facility] Last Admin: 11/25/23 08:16 Dose: 25 mcg Home Medications ?Medication ?Instructions ?Recorded ?Confirmed ?Last Taken ?Type cholecalciferol (vitamin D3) 25 25 mcg PO QAM 11/21/23 11/21/23 11/21/23 History mcg (1,000 unit) tablet (Vitamin D3) valsartan 160 mg tablet 160 mg PO M 11/21/23 11/21/23 11/21/23 History Physical Exam 2 Vital Signs: Vital Signs: Last Vital Signs Temp 96.8 F 11/25/23 10:44 Pulse 93 11/25/23 10:44 Resp 18 11/25/23 10:44 BP 125/69 11/25/23 10:44 Pulse Ox 93 11/25/23 10:44 O2 Del Method Room Air 11/25/23 10:44 BMI result Body Mass Index 29.6 Const: General: no acute distress and well developed O rientation/consciousness: patient oriented x3 HEENT: Head: Yes normocephalic and Yes atraumatic Eyes: Conjunctivae: conjunctivae normal Neck: Neck: Yes normal visual inspection Chest: Chest palpation & inspection: normal inspection of the chest Resp: Effort & Inspection: normal respiratory effort Cardio: Rate: regular rate GI: Inspection: Yes normal to inspection Palpation (GI): Soft to palpation : Other: texus cath to gravity drainage Penis: normal penis Scrotum: scrotum normal Neuro: General: patient oriented x3 Psych: Appearance: grossly normal Affect: normal affect Results Labs 11/25/23 06:43 11/25/23 06:43 Labs: Abnormal lab results 11/24/23 11/25/23 11/25/23 Range/Units 22:42 06:43 11:14 WBC 11.5 H (4.8-10.8) X10*3/uL BUN 20 H (9-16) mg/dL POC Glucose 170 H 157 H (60-115) mg/dL Random Glucose 138 H (60-115) mg/dL Short CBC 11/25/23 Range/Units 06:43 WBC 11.5 H (4.8-10.8) X10*3/uL Hgb 15.4 (14.0-18.0) g/dl Hct 45.8 (42.0-52.0) % Plt Count 234 (160-400) X10*3/uL BMP 11/25/23 06:43 Sodium 136 Potassium 4.1 Chloride 100 Carbon Dioxide 26 BUN 20 H Creatinine 0.95 Calcium 9.1 Urine 11/21/23 11/21/23 11/21/23 Range/Units 15:28 15:28 15:28 Urine Color Yellow Cancelled Urine Appearance Cloudy Cancelled Urine pH 5.5 (5.0-9.0) Ur Specific Chandler (1.005-1.025) Urine Protein (Neg-Trace) mg/dL Urine Glucose (UA) (Negative) mg/dL 11/21/23 11/21/23 11/21/23 Range/Units 15:28 15:28 15:28 Urine Color Urine Appearance Urine pH Cancelled (5.0-9.0) Ur Specific Chandler 1.020 Cancelled (1.005-1.025) Urine Protein 300 (3+) H Cancelled (Neg-Trace) mg/dL Urine Glucose (UA) Negative (Negative) mg/dL 11/21/23 Range/Units 15:28 Urine Color Urine Appearance Urine pH (5.0-9.0) Ur Specific Chandler (1.005-1.025) Urine Protein (Neg-Trace) mg/dL Urine Glucose (UA) Cancelled (Negative) mg/dL Collected: 11/21/23 Status: COMP Req#: [id number] Received: 11/21/23-1601 Source: [facility] Sp Desc: Urine bauer Subm Dr: Karolina ED Physician Ordered: Urine Culture Procedure Result Verified Urine Culture Final 11/23/23 Organism 1 Escherichia coli Quant > 100,000 cfu/mL E coli M.I.C. RX --------- --- Ampicillin 4 S Ceftriaxone <=0.25 S Gentamicin <=1 S Levofloxacin 1 I Nitrofurantoin <=16 S Trimethoprim/Sulfamethoxazole <=[address] scan - pelvis: report reviewed and image reviewed Abdominal ultrasound report/results: report reviewed and image reviewed Additional studies: Date of Service: 11/24/23 EXAMINATION: CT ABDOMEN AND PELVIS WITH CONTRAST CLINICAL INFORMATION: Fever and urinary infection. COMPARISON: CT abdomen 06/18/2027. TECHNIQUE: Multidetector volumetric images were obtained from the superior aspect of the liver through the pubic symphysis following administration 85 mL of Omnipaque 350 intravenous contrast. Sagittal and coronal reformatted images were obtained on the technologist's workstation. Oral contrast: No This CT examination was performed using dose optimization techniques as appropriate, variously including the following: *Automated exposure control *Adjustment of mA and/or kV according to patient size (this includes techniques or standardized protocols for targeted exams where dose is matched to indication/reason for exam; i.e. extremities or head) *Use of iterative reconstruction technique DLP: 708 mGy-cm FINDINGS: LUNG BASES: The visualized lung bases are unremarkable. LIVER, GALLBLADDER, AND BILIARY TREE: Several small cysts in the liver. No follow-up imaging is recommended. No biliary ductal dilatation. The gallbladder is unremarkable with no evidence of radiopaque gallstones, gallbladder wall thickening, or obvious pericholecystic inflammatory changes. PANCREAS: No discrete mass. No ductal dilatation. SPLEEN: Unremarkable. ADRENAL GLANDS: No adrenal mass. KIDNEYS AND URETERS: Multiple cysts are seen in both kidneys. No follow-up imaging is recommended. No nephrolithiasis or hydronephrosis. BLADDER: The bladder wall is not thickened. No visible trabeculation. No visible calculus. GASTROINTESTINAL TRACT: The small and large bowel are normal in caliber. Mild colonic diverticulosis. ABDOMINAL WALL: Fat-containing umbilical hernia. LYMPH NODES: No lymphadenopathy. VASCULAR: No aortic aneurysm. Mild aortoiliac atherosclerosis. PELVIC VISCERA: Prostate is enlarged measuring 5.5 x 4.8 x 5.2 cm. A 6 mm cystic lesion is seen in the left upper prostate which could represent a small abscess. OSSEOUS STRUCTURES: Degenerative changes in the spine and hips. IMPRESSION: No CT evidence of pyelonephritis. No nephrolithiasis or hydronephrosis. Enlarged prostate. 6 mm cystic lesion in the left prostate is nonspecific but could represent a small abscess given the clinical indication. Correlation with physical exam is recommended. Assessment and Plan (1) Urinary tract infection: Qualifiers: Hematuria presence: without hematuria Urinary tract infection type: a cute cystitis Qualified Code(s): N30.00 - Acute cystitis without hematuria Status: Acute (2) Prostatic cyst: Status: Acute (3) Enlarged prostate: Status: Acute Plan Antibiotics per ID Flomax 0.4 mg qd proscar 5 mg q d FU outpatient with Urology Procedures Date of Service Date of Service: 11/26/23
--- NOTE | 2023-11-25 15:48 | MHC.CM.PN ---
Addendum entered by Yareli Antony 11/25/23 16:13: Pt requested that this CM add a referral to [facility]. This CM explained that [facility] is an acute rehab and he may not clinically qualify for admission there, but that we would add the referral and let him know. This CM received a phone call from pts daughter Gloria, she states that [facility] is the pts first choice, unless [facility] can accept. Original Note: This CM met with pt to discuss STR options. Pt asked if [facility] could be added as that was his daughters preference. [facility] added but unfortunately unable to accept pt as they are not contracted, this was relayed to the pt. Pt clinically accepted to 7 other facilities, and will discuss his options with his daughter and will let us know.
[2023-11-25 16:00] VITALS: BP 134/83; PULSE 90; RESP 18; TEMP 36.4; O2SAT 93
[2023-11-25 16:32] LABS: A. Phagocytphilium DNA,RT-PCR NOT DETECTED (NOT DETECTED); Babesia Microti DNA, RT-PCR NOT DETECTED (NOT DETECTED); Borrelia Miyamotoi,DNA RT-PCR NOT DETECTED (NOT DETECTED); E.Chaffeensis DNA RT-PCR NOT DETECTED (NOT DETECTED); Lyme(Borrelia ssp)DNA RT-PCR NOT DETECTED (NOT DETECTED)
[2023-11-25 17:43] LABS: Lyme Abs Screen <0.90 index
[2023-11-25 20:00] VITALS: BP 120/78; PULSE 101; RESP 18; TEMP 36.2; O2SAT 93
[2023-11-25] MEDS: cefTRIAXone sodium 1 GM in 0.9 % Sodium Chloride 50 ML IV (20:54)
[2023-11-26] VITALS: BP 125/82; PULSE 86; RESP 16; TEMP 36.3; O2SAT 91
[2023-11-26 04:00] VITALS: BP 124/79; PULSE 84; RESP 18; TEMP 36.6; O2SAT 91
[2023-11-26 07:22] LABS: Alanine Aminotransferase 41 U/L (0-40); Albumin Level 3.3 g/dL (3.5-5.0); Alkaline Phosphatase 24 U/L (39-117); Anion Gap 13 (12-20); Aspartate Amino Transferase 23 U/L (5-37); Bilirubin Total 0.4 mg/dL (0.0-1.0); Blood Urea Nitrogen 19 mg/dL (9-16); C Reactive Protein 4.76 mg/dL (< or = 0.50); Calcium 9.2 mg/dL (8.4-10.2); Carbon Dioxide 27 mmol/L (22-29); Chloride 103 mmol/L (96-108); Creatinine Clr Calc Pharmacy 81.6; Estimated Glomerular Filt Rate > 60; Glucose Random 135 mg/dL (60-115); Potassium 4.1 mmol/L (3.3-5.1); Sodium 139 mmol/L (135-145); Total Protein 7.1 g/dL (6.5-8.0)
[2023-11-26 07:49] VITALS: BP 131/69; PULSE 84; RESP 18; TEMP 36.7; O2SAT 96
[2023-11-26 07:54] LABS: Procalcitonin 0.42 ng/mL
[2023-11-26] MEDS: Finasteride 5 MG TABLET PO (08:35)
[2023-11-26] MEDS: cefuroxime axetiL 500 MG TABLET PO ×2 (08:35→20:10)
[2023-11-26] MEDS: Valsartan 160 MG TABLET PO (08:35)
[2023-11-26] MEDS: Cholecalciferol (Vitamin D3) 25 MCG TABLET PO (08:35)
[2023-11-26] MEDS: 0.9 % Sodium Chloride Flush 3 ML SYRINGE IVFLUSH ×3 (08:36→20:12)
--- NOTE | 2023-11-26 10:39 | MHC.CM.PN ---
Per ROUNDS discussion, Patient is medically cleared for dc; PT is recommending STR and Patient has 5 SNF acceptances. CM met with Patient at bedside and spoke with his Daughter via speaker phone in the room to discuss SNF options. Patient and Daughter have chosen [facility] and CM has requested that they initiate BCBS auth.First choice/[facility] does not have a male bed and CM still awaits a response from [facility].CM will follow.
[2023-11-26 11:22] VITALS: BP 123/79; PULSE 81; RESP 18; TEMP 36.7; O2SAT 94
--- NOTE | 2023-11-26 12:32 | MHC.CM.PN ---
[facility] is unable to accept Patient. [facility] will initiate auth pending an updated PT PN (PT aware).
--- NOTE | 2023-11-26 13:09 | MHC.CM.PN ---
Patient's Daughter/Gloria will be bringing Patient's home BIPAP to [facility] at time of dc..
--- NOTE | 2023-11-26 14:06 | P.PNIM_ITS ---
Subjective Subjective Date of Service: 11/26/23 Interval History: no fever no abd pain no dysuria Review of Systems Review of Systems: Yes all other systems are reviewed and are negative Physical Exam 2 Vital Signs: Vital Signs: Last Vital Signs Temp 98.0 F 11/26/23 11:22 Pulse 81 11/26/23 11:22 Resp 18 11/26/23 11:22 BP 123/79 11/26/23 11:22 Pulse Ox 94 11/26/23 11:22 O2 Del Method Room Air 11/26/23 11:22 BMI result Body Mass Index 29.6 Gen: in no acute distress HEENT: sclera anicteric, moist mucus membranes Neck: supple Lungs: clear to auscultation bilaterally Heart: regular rate and rhythm, no murmurs Abd: soft, non-tender, non-distended Ext: no edema Skin: warm/well-perfused, scabbed papules around mouth and on arms Neuro: alert and oriented x3, L facial droop, L hemiparesis Psych: appropriate affect Objective Data Active Medications Acetaminophen (Acetaminophen 325 Mg Tablet) 650 mg PO Q6H PRN PRN Reason: Pain, Mild (Pain Scale 1-3) Last Admin: 11/24/23 00:15 Dose: 650 mg Documented By: CURRY Cefuroxime Axetil (Cefuroxime Axetil 500 Mg Tablet) 500 mg PO Q12H [facility] Last Admin: 11/26/23 08:35 Dose: 500 mg Documented By: DAREN Enoxaparin Sodium (Enoxaparin Sodium 40 Mg/0.4 Ml Syringe) 40 mg SUBCUT Q24H [facility] Last Admin: 11/25/23 20:55 Dose: Not Given Documented By: TONI Non-Admin Reason: Physician Held Med Finasteride (Finasteride 5 Mg Tablet) 5 mg PO DAILY [facility] Last Admin: 11/26/23 08:35 Dose: 5 mg Documented By: DAREN Hydrocortisone (Hydrocortisone 1 % Cream 28.35 Gm Tube) 1 appl TOPICAL BID PRN; Protocol PRN Reason: Itching Melatonin (Melatonin 3 Mg Tablet) 6 mg PO BEDTIME PRN PRN Reason: Insomnia Ondansetron HCl (Ondansetron Hcl 4 Mg/2 Ml Vial) 4 mg IVPUSH Q8H PRN PRN Reason: Nausea and Vomiting Sodium Chloride (0.9 % Sodium Chloride Flush 3 Ml Syringe) 3 ml IVFLUSH QSHIFT [facility] Last Admin: 11/26/23 08:36 Dose: 3 ml Documented By: DAREN Tamsulosin HCl (Tamsulosin Hcl 0.4 Mg Capsule) 0.4 mg PO BEDTIME [facility] Valsartan (Valsartan 160 Mg Tablet) 160 mg PO DAILY@0900 [facility]; Protocol Last Admin: 11/26/23 08:35 Dose: 160 mg Documented By: DAREN Vitamin D (Cholecalciferol (Vitamin D3) 25 Mcg Tablet) 25 mcg PO DAILY@0900 [facility] Last Admin: 11/26/23 08:35 Dose: 25 mcg Documented By: DAREN Labs 11/25/23 06:43 11/26/23 06:26 Labs: Laboratory Results - last 24 hr 11/21/23 11/24/23 11/26/23 17:27 08:00 06:26 Anion Gap 13 Estim Creat Clear Calc 81.6 Estimated GFR > 60 Random Glucose 135 H Calcium 9.2 Total Bilirubin 0.4 AST 23 ALT 41 H Alkaline Phosphatase 24 L C-Reactive Protein 4.76 H Total Protein 7.1 Albumin 3.3 L Procalcitonin 0.42 A.phagocytophil DNA PCR NOT DETECTED Babesia microti DNA PCR NOT DETECTED Borrelia sp DNA (PCR) NOT DETECTED Lyme Screen IgG & IgM <0.90 Lyme Progressive Test TNP Borrelia miyamotoi (PCR) NOT DETECTED E.chaffeensis DNA (PCR) NOT DETECTED Tick-borne Disease PCR SEE NOTE Microbiology Microbiology Results: Microbiology 11/23/23 11:40 Blood Culture - Preliminary Blood - Venous No growth after 48 hours. 11/23/23 11:40 Blood Culture - Preliminary Blood - Venous No growth after 48 hours. Assessment and Plan (1) Acute encephalopathy: Status: Acute (2) Weakness: Status: Acute (3) Urinary tract infection: Status: Acute (4) Recurrent falls: Status: Acute Plan d6 73yo M with hx hemorrhagic CVA in 2008 with residual facial droop + hemiparesis, HTN, EARNESTINE on BiPAP admitted for encephalopathy and sepsis attributed to UTI sepsis due to UTI, E coli I to levofloxacin - ceftriaxone 11/20-, change to cefuroxime upon discharge, end date 12/11 for total 21d [due to prostatic abscess] prostatic abscess prostatism - only 6 mm, no drainage indicated per Urology. Start Proscar/Flomax and f/u with Urology in 2-4 week fever - tickborne molecular panel negative, d/c doxycycline; fever was likeliy due to prostatic abscess acute encephalopathy due to infection - resolved, mental status normal now, appreciate Neuro consult skin lesions - likely contact dermatitis due to poison donell, give topical hydrocortisone prn frequent falls - PT evaluation: STR recommended HTN - valsartan EARNESTINE - BiPAP at night subclinical hypothyroidism - repeat TFTs in 3 mo VTE ppx - LMWH dispo - STR In my clinical judgment, the patient requires continued inpatient hospitalization for the following reasons: placement Total time managing care of this patient today: 35 minutes. Quality Stroke Does the patient have a stroke diagnosis?: No VTE Prior VTE?: No VTE Risk Level:: Medical - moderate - high VTE Device Contraindication: Treatment Not Indicated VTE Drug Contraindication: N/A - Med Ordered
[2023-11-26 15:07] VITALS: BP 120/77; PULSE 92; RESP 20; TEMP 36.3; O2SAT 93
[2023-11-26 19:43] VITALS: BP 144/77; PULSE 89; RESP 20; TEMP 36.1; O2SAT 99
[2023-11-26] MEDS: Tamsulosin HCL 0.4 MG CAPSULE PO (20:10)
[2023-11-26] MEDS: Enoxaparin Sodium 40 MG/0.4 ML SYRINGE SUBCUT (20:10)
[2023-11-27] VITALS: BP 118/75; PULSE 85; RESP 20; TEMP 36.3; O2SAT 93
[2023-11-27 03:28] VITALS: BP 133/83; PULSE 91; RESP 20; TEMP 36.1; O2SAT 91
[2023-11-27] MEDS: Finasteride 5 MG TABLET PO (07:42)
[2023-11-27 07:43] VITALS: BP 143/85; PULSE 100; RESP 20; TEMP 36.4; O2SAT 95
[2023-11-27] MEDS: Valsartan 160 MG TABLET PO (07:43)
[2023-11-27] MEDS: Cholecalciferol (Vitamin D3) 25 MCG TABLET PO (07:43)
[2023-11-27] MEDS: cefuroxime axetiL 500 MG TABLET PO (07:43)
[2023-11-27] MEDS: 0.9 % Sodium Chloride Flush 3 ML SYRINGE IVFLUSH (07:43)
--- NOTE | 2023-11-27 10:47 | HO.PM.IMPN ---
Subjective Subjective Date of Service: 11/27/23 Interval History: no fever no abd pain no dysuria Review of Systems Confusion, nightmares Polyuria, dysuria Worsening incontinence Lesions on right arm and face Falls at home Denies chest pain/pressure, palpitations No shortness a breath or difficulty breathing Denies fever, chills, nausea, vomiting, abdominal pain Physical Exam Vital Signs: Vital Signs: Last Vital Signs Temp 97.6 F 11/27/23 07:43 Pulse 100 11/27/23 07:43 Resp 20 11/27/23 07:43 BP 143/85 H 11/27/23 07:43 Pulse Ox 95 11/27/23 07:43 O2 Del Method Room Air 11/27/23 07:43 BMI result Body Mass Index 29.6 Gen: in no acute distress HEENT: sclera anicteric, moist mucus membranes Neck: supple Lungs: clear to auscultation bilaterally Heart: regular rate and rhythm, no murmurs Abd: soft, non-tender, non-distended Ext: no edema Skin: warm/well-perfused, scabbed papules around mouth and on arms Neuro: alert and oriented x3, L facial droop, L hemiparesis Psych: appropriate affect Objective Data Active Medications Acetaminophen (Acetaminophen 325 Mg Tablet) 650 mg PO Q6H PRN PRN Reason: Pain, Mild (Pain Scale 1-3) Last Admin: 11/24/23 00:15 Dose: 650 mg Documented By: CURRY Cefuroxime Axetil (Cefuroxime Axetil 500 Mg Tablet) 500 mg PO Q12H [facility] Last Admin: 11/27/23 07:43 Dose: 500 mg Documented By: DAREN Enoxaparin Sodium (Enoxaparin Sodium 40 Mg/0.4 Ml Syringe) 40 mg SUBCUT Q24H [facility] Last Admin: 11/26/23 20:10 Dose: 40 mg Documented By: ANTCARLEEN Finasteride (Finasteride 5 Mg Tablet) 5 mg PO DAILY [facility] Last Admin: 11/27/23 07:42 Dose: 5 mg Documented By: DAREN Hydrocortisone (Hydrocortisone 1 % Cream 28.35 Gm Tube) 1 appl TOPICAL BID PRN; Protocol PRN Reason: Itching Melatonin (Melatonin 3 Mg Tablet) 6 mg PO BEDTIME PRN PRN Reason: Insomnia Ondansetron HCl (Ondansetron Hcl 4 Mg/2 Ml Vial) 4 mg IVPUSH Q8H PRN PRN Reason: Nausea and Vomiting Sodium Chloride (0.9 % Sodium Chloride Flush 3 Ml Syringe) 3 ml IVFLUSH QSHIFT [facility] Last Admin: 11/27/23 07:43 Dose: 3 ml Documented By: DAREN Tamsulosin HCl (Tamsulosin Hcl 0.4 Mg Capsule) 0.4 mg PO BEDTIME [facility] Last Admin: 11/26/23 20:10 Dose: 0.4 mg Documented By: ANTOIC Valsartan (Valsartan 160 Mg Tablet) 160 mg PO DAILY@0900 [facility]; Protocol Last Admin: 11/27/23 07:43 Dose: 160 mg Documented By: DAREN Vitamin D (Cholecalciferol (Vitamin D3) 25 Mcg Tablet) 25 mcg PO DAILY@0900 [facility] Last Admin: 11/27/23 07:43 Dose: 25 mcg Documented By: DAREN Labs 11/25/23 06:43 11/26/23 06:26 Labs: Laboratory Results - last 24 hr 11/21/23 17:27 Lyme Progressive Test TNP Microbiology Microbiology Results: Microbiology 11/21/23 17:57 Blood Culture - Final Blood - Venous No growth after 5 days. 11/21/23 17:42 Blood Culture - Final Blood - Venous No growth after 5 days. Assessment and Plan (1) Urinary tract infection: Status: Acute Plan d6 73yo M with hx hemorrhagic CVA in 2008 with residual facial droop + hemiparesis, HTN, EARNESTINE on BiPAP admitted for encephalopathy and sepsis attributed to UTI sepsis due to UTI, E coli I to levofloxacin - ceftriaxone 10/29-11/25-, changed to cefuroxime, end date 12/11 for total 21d [due to prostatic abscess] prostatic abscess prostatism - only 6 mm, no drainage indicated per Urology. Start Proscar/Flomax and f/u with Urology in 2-4 week fever - tickborne molecular panel negative, d/c doxycycline; fever was likeliy due to prostatic abscess acute encephalopathy due to infection - resolved, mental status normal now, appreciate Neuro skin lesions - likely contact dermatitis due to poison donell, give topical hydrocortisone prn frequent falls - PT evaluation: STR recommended HTN - valsartan EARNESTINE - BiPAP at night subclinical hypothyroidism - repeat TFTs in 3 mo VTE ppx - LMWH dispo - STR In my clinical judgment, the patient requires continued inpatient hospitalization for the following reasons: placement Quality Stroke Does the patient have a stroke diagnosis?: No VTE Prior VTE?: No VTE Risk Level:: Medical - moderate - high VTE Device Contraindication: Treatment Not Indicated VTE Drug Contraindication: N/A - Med Ordered
[2023-11-27 11:18] VITALS: BP 115/79; PULSE 104; RESP 20; TEMP 36.1; O2SAT 93
--- NOTE | 2023-11-27 12:53 | MHC.CM.PN ---
Patient has been medically cleared for dc to STR/SNF today. Patient will dc to [facility] today at 4:30 PM, via [facility]. CM met with Patient at bedside and addressed IMM with him, providing Patient with the original and a copy has been placed on the chart. CM left a detailed message for Daughter/HCP/Gloria @ [phone], informing her of the dc plan.
--- NOTE | 2023-11-27 12:54 | PM.DS ---
DS: Providers Provider Date of Service: 11/27/23 Date of admission: 11/21/23 22:00 Primary care physician: Royal Hill MD Consults: 11/23/23 15:13 Consult to Neurology Routine Consulting Provider: [facility] Reason for consultation: incontinent, gait imbalance, encephalopathy. ?nph- prior to infection onset 11/24/23 14:04 Consult to Infectious Diseases Routine Consulting Provider[place] [facility] Reason for consultation: fever despite UTI tx 11/25/23 13:07 Consult to Urology Routine Consulting Provider: [facility] Reason for consultation: Enlarged prostate. 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 Patient with large CVA in 2008 with significant left-sided hemiparesis. Uses cane and walker for ambulation with occasional use of wheelchair for traveling longer distances. Family concerned patient has been less capable of taking care of himself at home over the past 1-2 weeks; lives with his 97 year mother. Patient reports having 3-4 falls at home while outside doing yard work, though states these occur when he is stuck in vegetation and finding it difficult to move. Denies tripping, lightheadedness, or dizziness. Denies head strike. Patient also complains of skin lesions on upper right extremity and on his face, primarily on the outside of his mouth on his right side. States they have been around for approximately a week, though worse the past 3-4 days. Minor pruritus. Patient also states that he has been experiencing worsening incontinence of urine, polyuria, and dysuria for the past week. Last night experienced hallucinations, long and protracted nightmares. States he was able to wake himself up, but nightmares would return every time he went back to sleep. This occurred 5 times. Family also concerned patient has been confused stating they received text from him last night that did not make sense and consisted of ?gibberish?. Patient denies chest pain/pressure, palpitations. No shortness of breath or difficulty breathing. In the ED pt was tachycardic up to 91, with elevated BP as high as 155/97. Labs were significant for leukocytosis of 13.9, AST 41, ALT 64, alk-phos 28, and TSH 0.28. Stable H& H. No electrolyte abnormalities. Renal function baseline. UA positive for UTI. CXR showed no acute cardiopulmonary disease with mildly enlarged heart. CT?of head negative for acute intracranial pathology, but did show cerebral atrophy with right greater than left and extensive intracranial atherosclerosis. EKG demonstrated sinus rhythm with premature supraventricular complexes but no evidence of significant ST elevations or depressions. Pt was treated with IVF and ceftriaxone. Pt will be admitted to the hospital for treatment and further evaluation of acute encephalopathy in the setting of acute UTI with sepsis. Hospital course: Patient was admitted with IV antibiotics. Was having persistent fever and imaging was performed which revealed 6 mm prostatic abscess. No drainage indicated as per Urology. Patient was started on Proscar/Flomax with close follow-up with Urology in 2-4 weeks. Patient stable to be discharged to acute rehab facility with a prescription of p.o. cefuroxime for total of 21 days. End date 12/11. Acute encephalopathy resolved with IV antibiotics. Status at Discharge Overall status at discharge: patient is back to baseline Time Attestation Discharge Coordination Time (in mins): 40 minutes Quality: Safe Use of Opioids Does Pt have an Active Cancer Diagnosis on the Problem List?: No Quality: Stroke Does the patient have a stroke diagnosis?: No Physical Exam Vital Signs: Vital Signs: Last Vital Signs Temp 97.0 F 11/27/23 11:18 Pulse 104 H 11/27/23 11:18 Resp 20 11/27/23 11:18 BP 115/79 11/27/23 11:18 Pulse Ox 93 11/27/23 11:18 O2 Del Method Room Air 11/27/23 11:18 BMI result Body Mass Index 29.6 Gen: in no acute distress HEENT: sclera anicteric, moist mucus membranes Neck: supple Lungs: clear to auscultation bilaterally Heart: regular rate and rhythm, no murmurs Abd: soft, non-tender, non-distended Ext: no edema Skin: warm/well-perfused, scabbed papules around mouth and on arms Neuro: alert and oriented x3, L facial droop, L hemiparesis Psych: appropriate affect DS: Data Data Completed and Pending Labs on day of discharge: Preliminary micro results at discharge 11/23/23 11:40 Blood Culture - Preliminary Blood - Venous No growth after 48 hours. 11/23/23 11:40 Blood Culture - Preliminary Blood - Venous No growth after 48 hours. Imaging Chest x-ray: Radiologist's impression: ITS Impressions Chest X-Ray 11/21/23 16:55 IMPRESSION: No acute cardiopulmonary disease. The heart is mildly enlarged. Head CT 11/21/23 18:51 IMPRESSION: No acute intracranial pathology. Cerebellar atrophy, right greater than left. Extensive intracranial atherosclerosis. Chest X-Ray 11/23/23 12:05 IMPRESSION: 1. Linear opacity likely platelike atelectasis left lung base. 2. No radiographic evidence of pneumonia. 3. Widened mediastinum exaggerated by AP technique unchanged. Abdomen/Pelvis CT 11/24/23 18:50 IMPRESSION: No CT evidence of pyelonephritis. No nephrolithiasis or hydronephrosis. Enlarged prostate. 6 mm cystic lesion in the left prostate is nonspecific but could represent a small abscess given the clinical indication. Correlation with physical exam is recommended. Fleischner guidelines were followed. Discharge Plan Discharge Anticipated Discharge Date/Time: 11/27/23 16:30 Patient Disposition: er [facility] Discharge Diagnosis: Sepsis due to UTI with prostatic abscess Referrals: Yas Bone [Outside] - 1 Week Royal Hill MD [Primary Care Provider] - 1 Week Discharge Medications: New tamsulosin 0.4 mg Capsule 0.4 mg PO BEDTIME 30 Days Qty: 30 0RF cefuroxime axetil 500 mg Tablet 500 mg PO Q12H 16 Days Qty: 32 0RF finasteride 5 mg Tablet 5 mg PO DAILY 30 Days Qty: 30 0RF Continued valsartan 160 mg tablet 160 mg PO QAM cholecalciferol (vitamin D3) [Vitamin D3] 25 mcg (1,000 unit) Tablet 25 mcg PO QAM Discharge Orders: Discharge Order (Routine); Ordered 11/27/23 Ordered By: Tristan Jay Diet: Advance to usual diet Activity on Discharge: As tolerated Stand Alone Forms: Patient Portal Discharge page Print Language: Hungarian Care Plan Goals: Follow-up with PCP in 1 week Follow-up with urology in 2-4 weeks Health Concerns: Prostatic abscess Plan of Treatment: P.o. cefuroxime: End date 12/11 Assessment: As above
[2023-11-27 16:00] VITALS: BP 120/78; PULSE 100; RESP 20; TEMP 36.6; O2SAT 94
== END 2023-11-27 17:03 | disposition skilled nursing facility (03) | DRG 871 ==
LOC: HO.ED 19:44 → HO.EDOVER 22:03 → HO.IMC 11-22 19:49
PROVIDERS: Family Medicine; Physician Assistant; Physician Assistant Medical; Admitting Provider Student in an Organized Health Care Education/Training Program; Emergency Provider Emergency Medicine; PCP Internal Medicine; Visit Provider Student in an Organized Health Care Education/Training Program
DX: A41.9 Sepsis, unspecified organism (principal); G93.41 Metabolic encephalopathy; I69.351 Hemiplegia and hemiparesis following cerebral infarction affecting right dominant side; N30.00 Acute cystitis without hematuria; N41.2 Abscess of prostate; L23.7 Allergic contact dermatitis due to plants, except food; B96.20 Unspecified Escherichia coli [E. coli] as the cause of diseases classified elsewhere; N40.0 Benign prostatic hyperplasia without lower urinary tract symptoms; E03.8 Other specified hypothyroidism; I10 Essential (primary) hypertension; G47.33 Obstructive sleep apnea (adult) (pediatric); R29.6 Repeated falls; I69.392 Facial weakness following cerebral infarction; Z20.822 Contact with and (suspected) exposure to COVID-19; Z79.899 Other long term (current) drug therapy
CPT/HCPCS: 0241U; 36415; 70450; 71045; 71046; 74177; 80048; 80053; 80076; 81001; 81003; 82550; 82947; 83605; 84145; 84439; 84443; 84484; 85007; 85025; 85027; 86140; 86617; 86618; 86780; 87040; 87086; 87088; 87186; 87389; 87468; 87469; 87478; 87484; 87798; 93005; 94640; 97116; 97162; 97530; 99285; J0696; J1650; Q9967

== ENCOUNTER → 2023-11-21 15:13 | Outpatient (BNV) | payer MEDICARE, SELFPAY | PROVIDERS: Admitting Provider Student in an Organized Health Care Education/Training Program; Emergency Provider Emergency Medicine; PCP Internal Medicine; Visit Provider Internal Medicine Cardiovascular Disease | DX: R94.31 Abnormal electrocardiogram [ECG] [EKG] (principal) | CPT/HCPCS: 93010 ==

== ENCOUNTER → 2023-11-21 22:00 | Outpatient (BNV) | payer MEDICARE, SELFPAY | PROVIDERS: Admitting Provider Student in an Organized Health Care Education/Training Program; Emergency Provider Emergency Medicine; PCP Internal Medicine; Visit Provider Psychiatry & Neurology Neurology | DX: R29.6 Repeated falls (principal) | CPT/HCPCS: 99222 ==

== ENCOUNTER → 2023-11-21 22:00 | Outpatient (BNV) | payer MEDICARE, SELFPAY | PROVIDERS: Admitting Provider Student in an Organized Health Care Education/Training Program; Emergency Provider Emergency Medicine; PCP Internal Medicine; Visit Provider Urology | DX: N42.83 Cyst of prostate (principal); N30.00 Acute cystitis without hematuria; N40.0 Benign prostatic hyperplasia without lower urinary tract symptoms | CPT/HCPCS: 99222 ==

== ENCOUNTER → 2023-11-21 22:00 | Outpatient (BNV) | payer MEDICARE, SELFPAY | PROVIDERS: Admitting Provider Student in an Organized Health Care Education/Training Program; Emergency Provider Emergency Medicine; PCP Internal Medicine; Visit Provider Internal Medicine | DX: G93.40 Encephalopathy, unspecified (principal); N30.00 Acute cystitis without hematuria; A41.9 Sepsis, unspecified organism | CPT/HCPCS: 99222 ==

== ENCOUNTER → 2023-11-21 22:00 | Outpatient (BNV) | payer MEDICARE, SELFPAY | PROVIDERS: Admitting Provider Student in an Organized Health Care Education/Training Program; Emergency Provider Emergency Medicine; PCP Internal Medicine; Visit Provider Student in an Organized Health Care Education/Training Program | DX: N30.00 Acute cystitis without hematuria (principal) | CPT/HCPCS: 99223; 99232; 99239 ==

== ENCOUNTER 2024-02-06 11:16 | Outpatient (AMB) | payer MEDICARE, SELFPAY ==
--- NOTE | 2024-02-06 11:21 | A.OFFVIS_ITS ---
Intake Visit Reasons: ? prostate abscess. hospitalized 11/20 Intake Note: Beau is a 73 year old male who presents to the office today for question prostate abscess(Hospitalized 11/20) Urology meds: Finasteride,Tamsulosin Blood thinners:None Allergies KAY Inhibitors [KAY INHIBITORS] Allergy (Severe, Verified 02/06/24 11:21) SWELLING ciprofloxacin [CIPROFLOXACIN] Allergy (Severe, Verified 02/06/24 11:21) SWELLING gabapentin [GABAPENTIN] Allergy (Severe, Verified 02/06/24 11:21) ANAPHYLAXIS erythromycin base [ERYTHROMYCIN BASE] Allergy (Intermediate, Verified 02/06/24 11:21) SHORTNESS OF BREATH ibuprofen [From MOTRIN] Allergy (Intermediate, Verified 02/06/24 11:21) HIVES SERATONIN Allergy (Severe, Uncoded 02/06/24 11:21) SERATONIN SYNDROME Medication List - Last Reconciled 02/06/24 by Rose Fuentes MD cholecalciferol (vitamin D3) (Vitamin D3) 25 mcg PO QAM finasteride 5 mg PO DAILY tamsulosin 0.4 mg PO BEDTIME 30 days valsartan 160 mg PO QAM HPI Comments Details: 02/06/24--Beau is here for follow-up. He was [place] [facility] [place]. CT imaging noted a prostatic cyst unable to rule out abscess. He was treated with IV antibiotics also evaluated by Infectious Disease. Urine culture came back E coli, blood cultures were negative. He was started on Flomax and Proscar. Patient states he is no longer taking the Proscar and I will send a new prescription. He denies dysuria. Follow-up office cystoscopy. Review of chart: 11/25/23--Seen as an inpatient consult at [facility]. 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 Patient with large CVA in 2008 with significant left- sided hemiparesis. Uses cane and walker for ambulation. Admitted on 11/21/23, found to have UTI, urine c/s E. coli. Blood cultures no growth. Called to evaluate due to enlarged prostate and 6 mm cyst in prostate, concern for abscess.. The area in question is subcentimeter and would not require drainage or aspiration. The patient has also been evaluated by ID who made recommendations for Antibiotics. Recommend flomax and proscar. out pt urology fu. [facility] Medical History (Updated 02/13/24 @ 10:46 by Rose Fuentes MD) Weakness Urinary tract infection Sepsis Hypertension Social History Household Members: Family Housing: House Do you presently have visiting nurse or other home services: No Patient Tobacco Use Status: Never used Tobacco service: Yes Office Procedures Post Void Residual Post Residual Void Post Void Residual (PVR): [id number] Void Residual by ultrasound Results AMB Urinalysis, Automated UA Leukoctes 15 Jean Marie/uL Last Edit by Nahtalie Bueno CMA on 02/06/24 11:48 UA Nitrite Negative Last Edit by Nathalie Bueno CMA on 02/06/24 11:48 UA Urobilinogen 0.2 mg/dL Last Edit by Nathalie Bueno CMA on 02/06/24 11:48 UA Protein 100 mg/dL Last Edit by Nathalie Bueno CMA on 02/06/24 11:48 UA pH 7.0 Last Edit by Nathalie Bueno CMA on 02/06/24 11:48 UA Blood 0 Francisco/uL Last Edit by Nathalie Bueno CMA on 02/06/24 11:48 UA Specific Howell 1.010 Last Edit by Nathalie Bueno CMA on 02/06/24 11:48 UA Ketone Negative Last Edit by Nathalie Bueno CMA on 02/06/24 11:48 UA Bilirubin 0 mg/dL Last Edit by Nathalie Bueno CMA on 02/06/24 11:48 UA Glucose 0 mg/dL Last Edit by Nathalie Bueno CMA on 02/06/24 11:48 Results Reviewed Results Reviewed: Laboratory Last Values Urine pH (Auto) 7.0 02/06/24 11:47 Specific Howell (Auto) 1.010 02/06/24 11:47 Urine Protein (Auto) 100 mg/dL 02/06/24 11:47 Glucose (UA)(Auto) 0 mg/dL 02/06/24 11:47 Urine Ketones (Auto) Negative 02/06/24 11:47 Urine Blood (Auto) 0 Francisco/uL 02/06/24 11:47 Urine Nitrite (Auto) Negative 02/06/24 11:47 Urine Bilirubin (Auto) 0 mg/dL 02/06/24 11:47 Urine Urobilinogen (Auto) 0.2 mg/dL 02/06/24 11:47 Leukocyte Esterase (Auto) 15 Jean Marie/uL 02/06/24 11:47 Date of Service: 11/24/23 EXAMINATION: CT ABDOMEN AND PELVIS WITH CONTRAST CLINICAL INFORMATION: Fever and urinary infection. COMPARISON: CT abdomen 06/18/2027. TECHNIQUE: Multidetector volumetric images were obtained from the superior aspect of the liver through the pubic symphysis following administration 85 mL of Omnipaque 350 intravenous contrast. Sagittal and coronal reformatted images were obtained on the technologist's workstation. Oral contrast: No This CT examination was performed using dose optimization techniques as appropriate, variously including the following: *Automated exposure control *Adjustment of mA and/or kV according to patient size (this includes techniques or standardized protocols for targeted exams where dose is matched to indication/reason for exam; i.e. extremities or head) *Use of iterative reconstruction technique DLP: 708 mGy-cm FINDINGS: LUNG BASES: The visualized lung bases are unremarkable. LIVER, GALLBLADDER, AND BILIARY TREE: Several small cysts in the liver. No follow-up imaging is recommended. No biliary ductal dilatation. The gallbladder is unremarkable with no evidence of radiopaque gallstones, gallbladder wall thickening, or obvious pericholecystic inflammatory changes. PANCREAS: No discrete mass. No ductal dilatation. SPLEEN: Unremarkable. ADRENAL GLANDS: No adrenal mass. KIDNEYS AND URETERS: Multiple cysts are seen in both kidneys. No follow-up imaging is recommended. No nephrolithiasis or hydronephrosis. BLADDER: The bladder wall is not thickened. No visible trabeculation. No visible calculus. GASTROINTESTINAL TRACT: The small and large bowel are normal in caliber. Mild colonic diverticulosis. ABDOMINAL WALL: Fat-containing umbilical hernia. LYMPH NODES: No lymphadenopathy. VASCULAR: No aortic aneurysm. Mild aortoiliac atherosclerosis. PELVIC VISCERA: Prostate is enlarged measuring 5.5 x 4.8 x 5.2 cm. A 6 mm cystic lesion is seen in the left upper prostate which could represent a small abscess. OSSEOUS STRUCTURES: Degenerative changes in the spine and hips. IMPRESSION: No CT evidence of pyelonephritis. No nephrolithiasis or hydronephrosis. Enlarged prostate. 6 mm cystic lesion in the left prostate is nonspecific but could represent a small abscess given the clinical indication. Correlation with physical exam is recommended. Collected: 11/21/23 Status: NICKI Gomez#: [id number] Received: 11/21/23 Source: [facility] Desc: Urine bauer Subm Dr: Generic ED Physician Ordered: Urine Culture Procedure Result Verified Urine Culture Final 11/23/23 Organism 1 Escherichia coli Quant > 100,000 cfu/mL E coli M.I.C. RX --------- --- Ampicillin 4 S Ceftriaxone <=0.25 S Gentamicin <=1 S Levofloxacin 1 I Nitrofurantoin <=16 S Trimethoprim/Sulfamethoxazole <=20 S Assessment & Plan Assessment & Plan (1) Enlarged prostate: Code(s): N40.0 - Benign prostatic hyperplasia without lower urinary tract symptoms Category: Medical (2) Prostatic cyst: Code(s): N42.83 - Cyst of prostate Category: Medical (3) Incomplete bladder emptying: Code(s): R33.9 - Retention of urine, unspecified Category: Medical (4) BPH loc w urin obs/LUTS: Code(s): N40.1 - Benign prostatic hyperplasia with lower urinary tract symptoms Category: Medical Plan Tamsulosin and Proscar continue. Follow-up office cystoscopy Orders: Orders AMB Urinalysis Automated 02/06/24 Z13.9 - Encounter for screening, unspecified AMB Post Void Residual by ultrasound 02/06/24 Z13.9 - Encounter for screening, unspecified Medications: Changed From finasteride 5 mg PO DAILY 30 days 30 tabs 0RF To finasteride 5 mg PO DAILY 90 tabs 2RF Patient Instructions: The patient had an opportunity to ask questions regarding treatment plan. The patient expressed understanding and agreement with the above treatment plan. The patient is aware they should contact our office by phone for worsening of their current condition or the appearance of new symptoms. Compliance is encouraged with any medications and followup testing that is ordered. It is a privilege to be allowed the opportunity to participate in the urologic care of your patient. If you have any questions or concerns regarding treatment for the above conditions please do not hesitate to contact me. The office telephone contact is [phone]. This note is constructed in part using voice recognition software. While every effort has been made to ensure accuracy harbor tug captain errors may have been included. Yours sincerely, Rose Fuentes MD Coding Level of Care Code Est Pt Level 4 (66979) Diagnoses Enlarged prostate N40.0 Prostatic cyst N42.83 Incomplete bladder emptying R33.9 BPH loc w urin obs/LUTS N40.1 CPT Codes Post Residual Void - PVR CPT Code: 68300-Qdai Void Residual by ultrasound ([id number])
== END 2024-02-06 12:23 | disposition home or self-care (01) ==
LOC: HO.HUSH 11:16
PROVIDERS: PCP Internal Medicine; Visit Provider Urology
DX: N40.0 Benign prostatic hyperplasia without lower urinary tract symptoms (principal); N42.83 Cyst of prostate; R33.9 Retention of urine, unspecified; N40.1 Benign prostatic hyperplasia with lower urinary tract symptoms
CPT/HCPCS: 99214

== ENCOUNTER → 2024-02-06 11:16 | Outpatient (BNVA) | payer MEDICARE, SELFPAY | PROVIDERS: PCP Internal Medicine; Visit Provider Urology | DX: N40.1 Benign prostatic hyperplasia with lower urinary tract symptoms (principal); R33.8 Other retention of urine; N42.83 Cyst of prostate | CPT/HCPCS: 51798; 81003; 99212 ==

== ENCOUNTER 2024-04-08 10:10 | Outpatient (AMB) | payer MEDICARE, SELFPAY ==
--- NOTE | 2024-04-08 10:17 | A.OFFVIS_ITS ---
Intake Visit Reasons: cysto Intake Note: Patient is present for Cystoscopy Urology Medication:TAMSULOSIN, FINASTERIDE Antibiotic Allergy:CIPROFLOXACIN, GABAPENTIN, ERYTHROMYCIN Blood Thinner:NONE Lot:[id number] Exp:05/03/27 [address] Contractor Required: No Allergies KAY Inhibitors [KAY INHIBITORS] Allergy (Severe, Verified 04/08/24 10:28) SWELLING ciprofloxacin [CIPROFLOXACIN] Allergy (Severe, Verified 04/08/24 10:28) SWELLING gabapentin [GABAPENTIN] Allergy (Severe, Verified 04/08/24 10:28) ANAPHYLAXIS erythromycin base [ERYTHROMYCIN BASE] Allergy (Intermediate, Verified 04/08/24 10:28) SHORTNESS OF BREATH ibuprofen [From MOTRIN] Allergy (Intermediate, Verified 04/08/24 10:28) HIVES SERATONIN Allergy (Severe, Uncoded 04/08/24 10:28) SERATONIN SYNDROME HPI Comments Details: 04/08/24--Beau is here for office cystoscopy. Cystoscopy findings: Obstructive prostatic urethra bilobar enlargement, prominent median lobe, bulbous urethra WNL, no suspicious bladder lesions visualized. Discussed treatment options to include green light laser vs TURP. Review of chart: 02/06/24--Beau is here for follow-up. He was admitted to [facility] for UTI sepsis. CT imaging noted a prostatic cyst unable to rule out abscess. He was treated with IV antibiotics also evaluated by Infectious Disease. Urine culture came back E coli, blood cultures were negative. He was started on Flomax and Proscar. Patient states he is no longer taking the Proscar and I will send a new prescription. He denies dysuria. Follow-up office cystoscopy. 11/25/23--Seen as an inpatient consult at [facility]. 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 Patient with large CVA in 2008 with significant left- sided hemiparesis. Uses cane and walker for ambulation. Admitted on 11/21/23, found to have UTI, urine c/s E. coli. Blood cultures no growth. Called to evaluate due to enlarged prostate and 6 mm cyst in prostate, concern for abscess.. The area in question is subcentimeter and would not require drainage or aspiration. The patient has also been evaluated by ID who made recommendations for Antibiotics. Recommend flomax and proscar. out pt urology fu. [facility] Medical History (Updated 02/13/24 @ 10:46 by Rose Fuentes MD) Weakness Urinary tract infection Sepsis Hypertension Social History Household Members: Family Housing: House Do you presently have visiting nurse or other home services: No Patient Tobacco Use Status: Never used Tobacco service: Yes Review of Systems Const All systems reviewed & are unremarkable except as noted in HPI and below Reports no additional complaints Eyes Reports no additional complaints ENT Reports no additional complaints Card Reports no additional complaints Resp Reports no additional complaints GI Reports no additional complaints Reports as per HPI Musc Reports no additional complaints Skin/Breast Reports system reviewed and no additional complaints, except as documented Neuro Reports no additional complaints Psych Reports no additional complaints Endo Reports no additional complaints Yuri/Lymph Reports no additional complaints Aller/Immun Reports no additional complaints Office Procedures Cystoscopy Consent Discussed risk and benefit or proposed procedure with the patient. Information consent for procedure given to the patient. Discussed technical aspects, risks, benefits and alternatives in full. Addressed all of the patient's questions and concerns regarding the procedure. The patient demonstrated knowledge and understanding. They wish to proceed with this procedure. Preparation The patient was prepped in the usual manner. A cane splicer was present and in the room. Genitalia was prepped with betadine solution in a sterile manner. Lidocaine Jelly 2% was placed into the urethra and 16Fr flexible Olympus cystoscope was inserted into the meatus after adequate lubrication. Time out per protocol performed. Bladder Inspection Bladder Inspection: The bladder was inspected in its entirety with utilization retroflexion displaying: Tumor(s): no suspicious bladder lesions visualized Trabeculation: Mild to Moderate Mucosal Erthema: NA Orifices: normal shape and position Urethra: normal Cystoscopy findings: Obstructive prostatic urethra bilobar enlargement, prominent median lobe, bulbous urethra WNL, no suspicious bladder lesions visualized [id number] DISPOSABLE SCOPE URO-G FLEXIBLE SCOPE Procedure code (CPT) selection complete Office Meds lidocaine HCl 2 % mucosal jelly in applicator Performing Provider: Rose Fuentes MD Performing Location[facility] Administered by: Jak Null RN on 04/08/24 11:00 Dose Route Admin Location Dispensed Lot Number Expiration Date NDC Site Administrator 10 mL intra-urethral 10 mL nitrofurantoin monohydrate/macrocrystals 100 mg capsule Performing Provider: Rose Fuentes MD Performing Location: [facility] Administered by: Jak Null RN on 04/08/24 11:00 Dose Route Admin Location Dispensed Lot Number Expiration Date NDC Site Administrator 100 mg PO 1 cap Comments: patient allergic to ciprofloxacin - nitrofurantoin given. patient allergic to ibuprofen - patient denied naproxen. Results AMB Urinalysis, Automated UA Leukoctes 0 Jean Marie/uL Last Edit by NIEVES Pack on 04/08/24 10:43 UA Nitrite Negative Last Edit by NIEVES Pack on 04/08/24 10:43 UA Urobilinogen 0.2 mg/dL Last Edit by NIEVES Pack on 04/08/24 10:4 3 UA Protein 30 mg/dL Last Edit by NIEVES Pack on 04/08/24 10:43 UA pH 7.0 Last Edit by NIEVES Pack on 04/08/24 10:43 UA Blood 0 Francisco/uL Last Edit by NIEVES Pack on 04/08/24 10:43 UA Specific [place] 1.010 Last Edit by NIEVES Pack on 04/08/24 10: 43 UA Ketone Negative Last Edit by NIEVES Pack on 04/08/24 10:43 UA Bilirubin 0 mg/dL Last Edit by NIEVES Pack on 04/08/24 10:43 UA Glucose 0 mg/dL Last Edit by NIEVES Pack on 04/08/24 10:43 Results Reviewed Results Reviewed: Laboratory Last Values Urine pH (Auto) 7.0 04/08/24 10:42 Specific [place] (Auto) 1.010 04/08/24 10:42 Urine Protein (Auto) 30 mg/dL 04/08/24 10:42 Glucose (UA)(Auto) 0 mg/dL 04/08/24 10:42 Urine Ketones (Auto) Negative 04/08/24 10:42 Urine Blood (Auto) 0 Francisco/uL 04/08/24 10:42 Urine Nitrite (Auto) Negative 04/08/24 10:42 Urine Bilirubin (Auto) 0 mg/dL 04/08/24 10:42 Urine Urobilinogen (Auto) 0.2 mg/dL 04/08/24 10:42 Leukocyte Esterase (Auto) 0 Jean Marie/uL 04/08/24 10:42 Assessment & Plan Assessment & Plan (1) BPH loc w urin obs/LUTS: Code(s): N40.1 - Benign prostatic hyperplasia with lower urinary tract symptoms Category: Medical (2) Incomplete bladder emptying: Code(s): R33.9 - Retention of urine, unspecified Category: Medical (3) Enlarged prostate: Code(s): N40.0 - Benign prostatic hyperplasia without lower urinary tract symptoms Category: Medical (4) Prostatic cyst: Code(s): N42.83 - Cyst of prostate Category: Medical Plan Green light Laser prostate. Orders: Orders AMB Urinalysis Automated 04/08/24 Z13.9 - Encounter for screening, unspecified AMB Cystoscopy 04/08/24 N40.1 - Benign prostatic hyperplasia with lower urinary tract symptoms, R33.9 - Retention of urine, unspecified, N40.0 - Benign prostatic hyperplasia without lower urinary tract symptoms, N42.83 - Cyst of prostate Patient Instructions: The patient had an opportunity to ask questions regarding treatment plan. The patient expressed understanding and agreement with the above treatment plan. The patient is aware they should contact our office by phone for worsening of their current condition or the appearance of new symptoms. Compliance is encouraged with any medications and followup testing that is ordered. It is a privilege to be allowed the opportunity to participate in the urologic care of your patient. If you have any questions or concerns regarding treatment for the above conditions please do not hesitate to contact me. The office telephone contact is [phone]. This note is constructed in part using voice recognition software. While every effort has been made to ensure accuracy model technician errors may have been included. Yours sincerely, Rose Fuentes MD Coding Level of Care Code Procedure Only Diagnoses BPH loc w urin obs/LUTS N40.1 Incomplete bladder emptying R33.9 Enlarged prostate N40.0 Prostatic cyst N42.83 CPT Codes Cystoscopy - CPT: 68986-Oekkmbqyme ([id number])
== END 2024-04-08 11:57 | disposition home or self-care (01) ==
LOC: HO.HUSH 10:10
PROVIDERS: PCP Internal Medicine; Visit Provider Urology
DX: N40.1 Benign prostatic hyperplasia with lower urinary tract symptoms (principal); R33.9 Retention of urine, unspecified; N40.0 Benign prostatic hyperplasia without lower urinary tract symptoms; N42.83 Cyst of prostate
CPT/HCPCS: 52000; 99214

== ENCOUNTER → 2024-04-08 10:10 | Outpatient (BNVA) | payer MEDICARE, SELFPAY | PROVIDERS: PCP Internal Medicine; Visit Provider Urology | DX: N40.1 Benign prostatic hyperplasia with lower urinary tract symptoms (principal); R33.8 Other retention of urine; N42.83 Cyst of prostate | CPT/HCPCS: 52000; 81003; 99212 ==

== ENCOUNTER 2024-04-16 11:00 | Outpatient (REF) | payer MEDICARE, SELFPAY ==
[2024-04-16 13:22] LABS: Appearance Urine Clear; Color Urine Yellow; Glucose Urine UA Negative (Negative); Leukocyte Esterase Urine Large (3+) (Negative); Nitrite Urine Negative (Negative); PH 7.5 (5.0-9.0); UMIC TRIGGER UA YES; Urine Blood Trace (Negative); Urine Ketones Negative (Negative); Urine Protein 30 (1+) mg/dL (Neg-Trace)
[2024-04-16 13:25] LABS: Bacteria Urine None Seen (None Seen); Hyaline Casts Urine 0-2 /LPF (0-2); RBC Urine 0-2 /HPF (0-2); Squamous Epithelial Cell Urine 0-2 /HPF (0-2); WBC Urine >50 /HPF (0-5)
== END 2024-04-16 11:01 | disposition home or self-care (01) ==
LOC: HO.HMGCLDS 11:00
PROVIDERS: PCP Internal Medicine; Visit Provider Urology
DX: N40.1 Benign prostatic hyperplasia with lower urinary tract symptoms (principal); N40.0 Benign prostatic hyperplasia without lower urinary tract symptoms; N42.83 Cyst of prostate; R39.9 Unspecified symptoms and signs involving the genitourinary system; R33.9 Retention of urine, unspecified
CPT/HCPCS: 81001; 87086; 87088; 87186

== ENCOUNTER 2024-06-04 13:03 | Outpatient (AMB) | payer MEDICARE, SELFPAY ==
--- NOTE | 2024-06-03 22:02 | MHC.OFFVIS ---
Intake Visit Reasons: discuss medication and side effects Intake Note: Patient is Present for Follow Up side effects/Discuss Medications Urology Medication: Finasteride, Tamsulosin( No longer taking) Antibiotic Allergies:Cipro, Erythromycin Blood Thinners: None side effects from the tamsulosin and finasteride medication PVR: 164 Printing Grey Cloth Tender Required: No Accompanied by: Self / Same As Patient Allergies KAY Inhibitors [KAY INHIBITORS] Allergy (Severe, Verified 06/04/24 13:26) SWELLING ciprofloxacin [CIPROFLOXACIN] Allergy (Severe, Verified 06/04/24 13:26) SWELLING gabapentin [GABAPENTIN] Allergy (Severe, Verified 06/04/24 13:26) ANAPHYLAXIS erythromycin base [ERYTHROMYCIN BASE] Allergy (Intermediate, Verified 06/04/24 13:26) SHORTNESS OF BREATH ibuprofen [From MOTRIN] Allergy (Intermediate, Verified 06/04/24 13:26) HIVES SERATONIN Allergy (Severe, Uncoded 06/04/24 13:26) SERATONIN SYNDROME Medication List - Last Reconciled 06/04/24 by Rose Fuentes MD cholecalciferol (vitamin D3) (Vitamin D3) 25 mcg PO QAM tafluprost (PF) 0.0015% 1 drp ophthalmic (eye) BEDTIME valsartan 160 mg PO QAM HPI Comments Details: 06/04/24--FU BPH--Beau is here in follow-up for BPH. He states that he discontinued the tamsulosin and Proscar because he felt depressed when he was on the medication. He states that other medications have also cause this problem including amlodipine and a cholesterol medication. He wants to hold on the GreenLight laser as he feels his urinating is stable and also he has an eye procedure that is upcoming and wants to wait until that is completed. Follow-up in September PSA prior. Discussion today included risks and benefits of the GreenLight laser including urgency and urge incontinence which is increased due to his history of stroke. Review of chart: 04/08/24--Beau is here for office cystoscopy. Cystoscopy findings: Obstructive prostatic urethra bilobar enlargement, prominent median lobe, bulbous urethra WNL, no suspicious bladder lesions visualized. Discussed treatment options to include green light laser vs TURP. 02/06/24--Beau is here for follow-up. He was admitted to [facility] for UTI sepsis. CT imaging noted a prostatic cyst unable to rule out abscess. He was treated with IV antibiotics also evaluated by Infectious Disease. Urine culture came back E coli, blood cultures were negative. He was started on Flomax and Proscar. Patient states he is no longer taking the Proscar and I will send a new prescription. He denies dysuria. Follow-up office cystoscopy. 11/25/23--Seen as an inpatient consult at [facility]. 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 Patient with large CVA in 2008 with significant left-sided hemiparesis. Uses cane and walker for ambulation. Admitted on 11/21/23, found to have UTI, urine c/s E. coli. Blood cultures no growth. Called to evaluate due to enlarged prostate and 6 mm cyst in prostate, concern for abscess.. The area in question is subcentimeter and would not require drainage or aspiration. The patient has also been evaluated by ID who made recommendations for Antibiotics. Recommend flomax and proscar. out pt urology fu. [facility]END[facility] TO [facility] Medical History Weakness Urinary tract infection Sepsis Hypertension Social History Household Members: Family Housing: House Do you presently have visiting nurse or other home services: No Patient Tobacco Use Status: Never used Tobacco service: Yes Review of Systems Const All systems reviewed & are unremarkable except as noted in HPI and below Reports no additional complaints Eyes Reports no additional complaints ENT Reports no additional complaints Card Reports no additional complaints Resp Reports no additional complaints GI Reports no additional complaints Reports as per HPI Musc Reports no additional complaints Skin/Breast Reports system reviewed and no additional complaints, except as documented Neuro Reports no additional complaints Psych Reports no additional complaints Endo Reports no additional complaints Yuri/Lymph Reports no additional complaints Aller/Immun Reports no additional complaints Office Procedures Post Void Residual Post Residual Void Post Void Residual (PVR): 164 [id number] Void Residual by ultrasound Assessment & Plan Assessment & Plan (1) Enlarged prostate: Code(s): N40.0 - Benign prostatic hyperplasia without lower urinary tract symptoms Category: Medical (2) BPH loc w urin obs/LUTS: Code(s): N40.1 - Benign prostatic hyperplasia with lower urinary tract symptoms Category: Medical (3) History of stroke: Code(s): Z86.73 - Personal history of transient ischemic attack (TIA), and cerebral infarction without residual deficits Category: Medical Plan Stopped tamsulosin and Proscar due to side effects Hold on GreenLight laser. Patient states he will be having an eye procedure and wants to wait Orders: Orders AMB Post Void Residual by ultrasound Today N40.1 - Benign prostatic hyperplasia with lower urinary tract symptoms PSA,Total (Free>4and<10) 14 Weeks N40.0 - Benign prostatic hyperplasia without lower urinary tract symptoms, N40.1 - Benign prostatic hyperplasia with lower urinary tract symptoms Medications: Discontinued finasteride Discontinued Reason: Patient no longer taking 5 mg PO DAILY 90 tabs 2RF Coding Level of Care Code Est Pt Level 4 (16311) Diagnoses Enlarged prostate N40.0 BPH loc w urin obs/LUTS N40.1 History of stroke Z86.73 CPT Codes Post Residual Void - PVR CPT Code: [id number]-[id number] Void Residual by ultrasound ([id number])
== END 2024-06-04 13:43 | disposition home or self-care (01) ==
LOC: HO.HUSH 13:03
PROVIDERS: PCP Internal Medicine; Visit Provider Urology
DX: N40.0 Benign prostatic hyperplasia without lower urinary tract symptoms (principal); N40.1 Benign prostatic hyperplasia with lower urinary tract symptoms; Z86.73 Personal history of transient ischemic attack (TIA), and cerebral infarction without residual deficits
CPT/HCPCS: 99214

== ENCOUNTER → 2024-06-04 13:03 | Outpatient (BNVA) | payer MEDICARE, SELFPAY | PROVIDERS: PCP Internal Medicine; Visit Provider Urology | DX: N40.1 Benign prostatic hyperplasia with lower urinary tract symptoms (principal); Z86.73 Personal history of transient ischemic attack (TIA), and cerebral infarction without residual deficits | CPT/HCPCS: 51798; 99212 ==

== ENCOUNTER 2024-09-20 06:38 | Outpatient (REF) | payer MEDICARE, SELFPAY ==
[2024-09-20 10:33] LABS: MANUAL DIFF FLAG NO
[2024-09-20 10:37] LABS: Basophils Percent Auto 0.6 % (0-2); Eosinophils Absolute Auto 0.2 X10*3/uL (0.0-0.4); Eosinophils Percent Auto 2.8 % (0-4); Hematocrit 48.2 % (42.0-52.0); Hemoglobin 15.6 g/dl (14.0-18.0); Imm Gran Abs Auto 0.03 X10*3/uL (0.00-0.03); Imm Gran Pct Auto 0.4 % (0.0-0.4); Lymphocytes Absolute Auto 1.5 X10*3/uL (1.2-4.9); Lymphocytes Percent Auto 22.1 % (20-40); Mean Corpuscular HGB Conc 32.4 g/dl (31.0-36.0); Mean Corpuscular Hemoglobin 28.9 pg (27.0-33.0); Mean Corpuscular Volume 89.3 fL (80.0-98.0); Mean Platelet Volume 10.4 fL (9.4-12.4); Monocytes Absolute Auto 0.4 X10*3/uL (0.1-1.2); Monocytes Percent Auto 5.2 % (2-11); Neutrophils Absolute Auto 4.7 x10*3/uL (2.0-8.3); Neutrophils Percent Auto 68.9 % (45-73); Platelet Count 256 X10*3/uL (160-400); Red Cell Distribution Width 13.7 % (11.0-16.0); White Blood Count 6.8 X10*3/uL (4.8-10.8)
[2024-09-20 10:46] LABS: Anion Gap 12 (12-20); Blood Urea Nitrogen 20 mg/dL (9-16); Calcium 9.5 mg/dL (8.4-10.2); Carbon Dioxide 27 mmol/L (22-29); Chloride 105 mmol/L (96-108); Estimated Glomerular Filt Rate > 60; Glucose Random 100 mg/dL (60-115); Potassium 4.1 mmol/L (3.3-5.1); Sodium 140 mmol/L (135-145)
[2024-09-20 11:06] LABS: PSA,Total (Free>4and<10) 1.51 ng/mL (0.00-4.00)
== END 2024-09-20 06:39 | disposition home or self-care (01) ==
LOC: HO.HMGCLDS 06:38
PROVIDERS: PCP Internal Medicine; Visit Provider Urology
DX: Z01.818 Encounter for other preprocedural examination (principal); N40.0 Benign prostatic hyperplasia without lower urinary tract symptoms; N40.1 Benign prostatic hyperplasia with lower urinary tract symptoms; Z12.5 Encounter for screening for malignant neoplasm of prostate
CPT/HCPCS: 36415; 80048; 84153; 85025

== ENCOUNTER 2024-10-04 12:54 | Outpatient (AMB) | payer MEDICARE, SELFPAY ==
--- NOTE | 2024-10-04 13:28 | A.OFFVIS_ITS ---
Intake Visit Reasons: 4 month follow up/ PSA Intake Note: Patient is present for a 4 month follow up/PSA PSA:1.51 Urology Medication:none Antibiotic Allergies:Cipro, Erythromycin Blood Thinners: None PVR: 84ml Head Operator Sulfide Required: No Accompanied by: Self / Same As Patient Allergies KAY Inhibitors [KAY INHIBITORS] Allergy (Severe, Verified 10/04/24 13:39) SWELLING ciprofloxacin [CIPROFLOXACIN] Allergy (Severe, Verified 10/04/24 13:39) SWELLING gabapentin [GABAPENTIN] Allergy (Severe, Verified 10/04/24 13:39) ANAPHYLAXIS erythromycin base [ERYTHROMYCIN BASE] Allergy (Intermediate, Verified 10/04/24 13:39) SHORTNESS OF BREATH ibuprofen [From MOTRIN] Allergy (Intermediate, Verified 10/04/24 13:39) HIVES SERATONIN Allergy (Severe, Uncoded 06/04/24 13:26) SERATONIN SYNDROME Medication List - Last Reconciled 10/04/24 by oRse Fuentes MD cholecalciferol (vitamin D3) (Vitamin D3) 25 mcg PO QAM tafluprost (PF) 0.0015% 1 drp ophthalmic (eye) BEDTIME valsartan 160 mg PO QAM HPI Comments Details: 10/04/24--FU BPH--Beau is here in follow-up for BPH. Past medical history includes stroke. He states that he discontinued the tamsulosin and Proscar bec ause he felt depressed when he was on the medication. LV-06/04/24--discussed that he also had side effects of feeling depressed on other medications including amlodipine and a cholesterol medication years ago. He discussed that he was going to be having an left eye procedure done, which will be scheduled for this week. He states that he has noticed that he is urinating well at home. He [place] plan to [place], [place] daughter resides. We will make a follow-up on a p.r.n. basis at this point and once he is settled he will find a new PCP . [id number]-09/20/2024--1.51 ng/mL. Bladder scan PVR - acceptable. 06/04/24--FU BPH--Beau is here in follow-up for BPH. He states that he discontinued the tamsulosin and Proscar because he felt depressed when he was on the medication. He states that other medications have also cause this problem including amlodipine and a cholesterol medication. He wants to hold on the GreenLight laser as he feels his urinating is stable and also he has an eye procedure that is upcoming and wants to wait until that is completed. Follow-up in September PSA prior. Discussion today included risks and benefits of the GreenLight laser including urgency and urge incontinence which is increased due to his history of stroke. 04/08/24--Beau is here for office cystoscopy. Cystoscopy findings: Obstructive prostatic urethra bilobar enlargement, prominent median lobe, bulbous urethra WNL, no suspicious bladder lesions visualized. Discussed treatment options to include green light laser vs TURP. 02/06/24--Beau is here for follow-up. He was admitted to [facility] for UTI sepsis. CT imaging noted a prostatic cyst unable to rule out abscess. He was treated with IV antibiotics also evaluated by Infectious Disease. Urine culture came back E coli, blood cultures were negative. He was started on Flomax and Proscar. Patient states he is no longer taking the Proscar and I will send a new prescription. He denies dysuria. Follow-up office cystoscopy. 11/25/23--Seen as an inpatient consult at [facility]. 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 Patient with large CVA in 2008 with significant left- sided hemiparesis. Uses cane and walker for ambulation. Admitted on 11/21/23, found to have UTI, urine c/s E. coli. Blood cultures no growth. Called to evaluate due to enlarged prostate and 6 mm cyst in prostate, concern for abscess.. The area in question is subcentimeter and would not require drainage or aspiration. The patient has also been evaluated by ID who made recommendations for Antibiotics. Recommend flomax and proscar. out pt urology fu. [facility] Medical History Weakness Urinary tract infection Sepsis Hypertension Social History Household Members: Family Housing: House Do you presently have visiting nurse or other home services: No Patient Tobacco Use Status: Never used Tobacco service: Yes Review of Systems Const All systems reviewed & are unremarkable except as noted in HPI and below Reports no additional complaints Eyes Reports no additional complaints ENT Reports no additional complaints Card Reports no additional complaints Resp Reports no additional complaints GI Reports no additional complaints Reports as per HPI Musc Reports no additional complaints Skin/Breast Reports system reviewed and no additional complaints, except as documented Neuro Reports no additional complaints Psych Reports no additional complaints Endo Reports no additional complaints Yuri/Lymph Reports no additional complaints Aller/Immun Reports no additional complaints Assessment & Plan Assessment & Plan (1) BPH loc w urin obs/LUTS: Code(s): N40.1 - Benign prostatic hyperplasia with lower urinary tract symptoms Category: Medical (2) History of stroke: Code(s): Z86.73 - Personal history of transient ischemic attack (TIA), and cerebral infarction without residual deficits Category: Medical Plan FU prn. Pt states planning to move in the fall Patient Instructions: The patient had an opportunity to ask questions regarding treatment plan. The patient expressed understanding and agreement with the above treatment plan. The patient is aware they should contact our office by phone for worsening of their current condition or the appearance of new symptoms. Compliance is encouraged with any medications and followup testing that is ordered. It is a privilege to be allowed the opportunity to participate in the urologic care of your patient. If you have any questions or concerns regarding treatment for the above conditions please do not hesitate to contact me. The office telephone contact is [phone]. This note is constructed in part using voice recognition software. While every effort has been made to ensure accuracy dusting and brushing machine operator errors may have been included. Yours sincerely, Rose Fuentes MD Coding Level of Care Code Est Pt Level 3 (05213) Diagnoses BPH loc w urin obs/LUTS N40.1 History of stroke Z86.73
--- OUTSIDE RECORDS SUMMARY | 2024-10-04 15:15 | XMS_ITS | Clinical Summary ---
Author Organization [facility] Address [address] [place] [address] Phone Care Team Providers Care Hi Lo Driver Name Role Phone Royal Hill MD Primary Care Provider [phone] Allergies Active Allergy Reactions Criticality Noted Date Comments Amlodipine Excitement 09/05/2024 REPORTS INCREASED DEPRESSION Aspirin 09/04/2024 Atenolol Swelling 09/05/2024 Carvedilol Shortness of breath High 09/05/2024 patient states was loopy, short of breath Ciprofloxacin 09/04/2024 Citalopram Other 08/07/2018 Other Reaction(s): serotonin syndrome DEVELOEPD SEROTONIN SYNDROME citalopram Doxazosin Numbness 09/05/2024 Erythromycin 09/04/2024 Ibuprofen Hives,Other 08/07/2018 welts ibuprofen Lisinopril Angioedema,Other High 08/07/2018 lisinopril Gabapentin 09/04/2024 Medications valsartan (DIOVAN) 160 mg tablet Take 1 tablet (160 mg total) by mouth 1 (one) time each day. 06/10/20 24 Active tafluprost, PF, 0.0015 % dropperette Administer 1 drop into both eyes at bedtime. at bedtime 08/10/19 25 Active tamsulosin (FLOMAX) 0.4 mg 24 hr capsule Take 1 capsule (0.4 mg total) by mouth 1 (one) time each day. 025 Discontinued finasteride (PROSCAR) 5 mg tablet Take 1 tablet (5 mg total) by mouth 1 (one) time each day. 025 Discontinued sulfamethoxazol e-trimethoprim (BACTRIM DS,SEPTRA DS) 800-160 mg per tablet Take 1 tablet by mouth 2 (two) times a day for 7 days. 14 each 09/07/19 25 025 mupirocin (BACTROBAN) 2 % ointment Apply to each nostril 3 (three) times a day for 7 days. 22 g 09/07/19 25 025 chlorhexidine (HIBICLENS) 4 % external liquid Apply topically 1 (one) time each day for 14 days. Rinse entire body with water, then wash with minimum amount necessary to cover entire body daily; use in combination with nasal mupirocin. 120 mL 09/07/19 25 025 Active Problems Problem Noted Date Diagnosed Date Preseptal cellulitis of left eye 09/05/2024 Encounters Date Type Department Care Team Description 09/04/2024 7:53 PM EST - 09/08/2024 12:11 PM EDT Hospital Encounter [facility] [address] [place] [id number] Garrison Gandhi MD Garvin, MD Prieto Malloy Christopher, MD Alam, MD Jona Fajardo, Ronny Gomes MD Preseptal cellulitis of left eye (Primary Dx); Facial cellulitis Discharge Disposition: Home-Health Care c from Last 3 Months Surgical History Surgery Date Site/Laterality Comments COLONOSCOPY Medical History Medical History Date Comments CVA (cerebral vascular accident) ([facility]) 2009 left sided deficit Hypertension Glaucoma Social History Tobacco Use Types Packs/Day Years Used Date Smoking Tobacco: Never Smokeless Tobacco: Never Tobacco Cessation:Counseling Given: Not Answered Interpersonal Safety Answer Date Record ed Physical Abuse 09/05/2024 Verbal Abuse 09/05/2024 Sex and Gender Information Value Date Recorded Sex Assigned at Male 09/05/2024 4:03 AM EDT Legal Sex Male 7:35 PM EST Gender Identity Male 09/05/2024 4:03 AM EDT Sexual Orientation Straight 09/05/2024 4: 03 AM EDT Obstetrics History Last Filed Vital Signs Vital Sign Reading Time Taken Comments Blood Pressure 151/103 09/08/2024 7:54 AM EDT Pulse 103 09/08/2024 7:54 AM EDT Temperature 36.9 ??C (98.4 ??F) 09/08/2024 7:54 AM ED T Respiratory Rate 20 09/08/2024 7:54 AM EDT Oxygen Saturation 93% 09/08/2024 7:54 AM EDT Inhaled Oxygen Concentration - - Weight 90.7 kg (200 lb) 09/04/2024 7:52 PM EST Height 180.3 cm (5' 11 ) 09/04/2024 7:52 PM EST Body Mass Index 27.89 09/04/2024 7:52 PM EST Plan of Treatment Health Maintenance Due Date Last Done Comments Hepatitis A Vaccines (1 of 2 - Risk 2-dose series) 1968 Hepatitis B Vaccines (1 of 3 - Risk 3-dose series) 2009 Zoster Vaccines (2 of 2) 11/21/2023 09/26/2023 Cholesterol Screening (Lipid Panel) 09/04/2024 05/18/2018 Colorectal Cancer Screening: Colonoscopy 09/04/2024 Depression Screening 09/04/2024 Medicare Annual Wellness Visit 09/04/2024 Social Influencers of Health Screening 09/04/2024 Hypertension/CHF/CAD Annual BMP Blood Test 09/05/2025 09/05/2024, 09/04/2024, 11/28/2023, Additional history exists Falls Risk Assessment 09/08/2025 09/08/2024 DTaP,Tdap,and Td Vaccines (4 - Td or Tdap) 03/13/2032 03/13/2022, 01/19/2018, 07/01/2005 Hepatitis C Screening Completed 08/06/2018 Pneumococcal Vaccine: 50+ Years Completed 05/23/2023, 10/04/2021, 08/06/2018, Additional history exists RSV Immunization Adult Patients Completed 07/11/2023, 04/18/2023 COVID-19 Vaccine Completed 04/19/2024, , 05/23/2023, Additional history exists Influenza Vaccine Completed 04/19/2024, , 05/23/2023, Additional history exists HIB Vaccines Aged Out No longer eligi ble based on patient's age to complete this topic HPV Vaccines Aged Out No longer eligi ble based on patient's age to complete this topic IPV Vaccines Aged Out No longer eligi ble based on patient's age to complete this topic MMR Vaccines Aged Out No longer eligi ble based on patient's age to complete this topic Meningococcal ACWY Vaccine Aged Out N o longer eligible based on patient's age to complete this topic Meningococcal B Vaccine Aged Out No l onger eligible based on patient's age to complete this topic RSV Immunization Patients Under 20 months Aged Out No longer eligible based on patient's age to complete this topic Varicella Vaccines Aged Out No longer eligible based on patient's age to complete this topic Procedures Procedure Name Priority Date/Time Associated Diagnosis Comments VANCOMYCIN, TROUGH Timed 09/06/2024 12 :18 PM EDT SST - GOLD Routine 09/06/2024 5:59 AM EDT EXTRA TUBES Routine 09/06/2024 5:59 AM EDT CBC WITH AUTO DIFFERENTIAL Routine 09/06/2024 5:59 AM EDT CBC AND DIFFERENTIAL Routine 09/06/2024 5:59 AM EDT MRSA PCR STAT 09/05/2024 8:11 PM EDT CBC WITH AUTO DIFFERENTIAL Routine 09/05/2024 5:59 AM EDT CBC AND DIFFERENTIAL Routine 09/05/2024 5:59 AM EDT BASIC METABOLIC PANEL Routine 09/05/2024 5:[address] MAXILLOFACIAL W CONTRAST STAT 09/04/2024 10:02 PM EST CULTURE BLOOD STAT 09/04/2024 9:22 PM EST CBC WITH AUTO DIFFERENTIAL STAT 09/04/2024 8:44 PM EST ACTIVATED PARTIAL THROMBOPLASTIN TIME STAT 09/04/2024 8:44 PM EST PROTHROMBIN TIME WITH INR STAT 09/04/2024 8:44 PM EST LACTATE STAT 09/04/2024 8:44 PM EST CBC AND DIFFERENTIAL STAT 09/04/2024 8:44 PM EST COMPREHENSIVE METABOLIC PANEL STAT 09/04/2024 8:44 PM EST CULTURE BLOOD STAT 09/04/2024 8:44 PM EST from Last 3 Months Results * Vancomycin, trough (09/06/2024 12:18 PM EDT) [facility] Vancomycin Trough 15.3 10.0 - 20.0 mcg/mL LAB CHEMISTRY METHOD 09/06/2024 1:21 PM EDT [facility] Blood Venous blood specimen / Unknown Venipuncture / Unknown 09/06/2024 12:18 PM EDT 09/06/2024 12:23 PM EDT Urban Moreau MD LAB BLOOD ORDERABLES Final Result Performing Organization Address City/[facility]/ZIP Co de Phone Number [facility] [address] [place] [address], [place] [phone] * SST tube (09/06/2024 5:59 AM EDT) [facility] Extra Tube Hold for add-ons. 09/06/2024 8:01 AM EDT [facility] Comment:Auto resulted. Blood Venous blood specimen / Unknown Venipuncture / Unknown 09/06/2024 5:59 AM EDT 09/06/2024 6:21 AM EDT Ronny Tenorio MD LAB BLOOD ORDERABLES Final Re sult Performing Organization Address City/[facility]/ZIP Co de Phone Number [facility] [address] [place] [address], [place] [phone] * (ABNORMAL) CBC auto differential (09/06/2024 5:59 AM EDT) Only the most recent of3 resultswithin the time period is included. [facility] Signature WBC 9.9 4.8 - 10.8 K/mcL LAB HEMETOLOGY METHOD 09/06/2024 6:31 AM [facility] RBC 5.20 4.50 - 5.50 M/mcL LAB HEMETOLOG[facility]24 [facility] Hemoglobin 15.3 13.5 - 17.5 g/dL LAB HEMETOLOGY METHOD 09/06/2024 6:31 AM [facility] Hematocrit 46.6 42.0 - 54.0 % LAB HEMETOLOGY METHOD 09/06/2024 6:31 AM [facility] MCV 89.6 79.0 - 98.0 FL LAB HEMETOLOGY METHOD 09/06/2024 6:31 AM [facility] MCH 29.4 27.0 - 32.0 pcg LAB HEMETOLOGY METHOD 09/06/2024 6:31 AM [facility] MCHC 32.8 32.0 - 37.0 g/dL LAB HEMETOLOGY METHOD 09/06/2024 6:31 AM [facility] RDW 13.7 11.0 - 15.0 % LAB HEMETOLOGY METHOD 09/06/2024 6:31 AM [facility] Platelets 190 130 - 400 K/mcL LAB HEMETOLOGY METHOD 09/06/2024 6:31 AM [facility] MPV 10.2 7.0 - 11.0 FL LAB HEMETOLOGY METHOD 09/06/2024 6:31 AM [facility] NRBC 0.0 <1.0 % LAB HEMETOLOGY METHOD 09/06/2024 6:31 AM [facility] NRBC Absolute 0.00 <0.10 K/mcL LAB HEMETOLOGY METHOD 09/06/2024 6:31 AM [facility] Neutrophils Relative 80.3 % LAB HEMETOLOGY METHOD 09/06/2024 6:31 AM [facility] Lymphocytes Relative 9.2 % LAB HEMETOLOGY METHOD 09/06/2024 6:31 AM [facility] Monocytes Relative 6.6 % LAB HEMETOLOGY METHOD 09/06/2024 6:31 AM [facility] Eosinophils Relative 3.0 % LAB HEMETOLOGY METHOD 09/06/2024 6:31 AM [facility] Basophils Relative 0.4 % LAB HEMETOLOGY METHOD 09/06/2024 6:31 AM [facility] Immature Granulocytes Relative 0.5 % LAB HEMETOLOGY METHOD 09/06/2024 6:31 AM [facility] Neutrophils Absolute 7.93(H) 1.50 - 7.00 K/mcL LAB HEMETOLOGY METHOD 09/06/2024 6:31 AM [facility] Lymphocytes Absolute 0.91(L) 1.00 - 5.00 K/mcL LAB HEMETOLOGY METHOD 09/06/2024 6:31 AM [facility] Monocytes Absolute 0.65 0.20 - 1.00 K/mcL LAB HEMETOLOGY METHOD 09/06/2024 6:31 AM [facility] Eosinophils Absolute 0.30 0.00 - 0.50 K/mcL LAB HEMETOLOGY METHOD 09/06/2024 6:31 AM [facility] Basophils Absolute 0.04 0.00 - 0.20 K/mcL LAB HEMETOLOGY METHOD 09/06/2024 6:31 AM [facility] Immature Granulocytes Absolute 0.05(H) 0.00 - 0.03 K/mcL LAB HEMETOLOGY METHOD 09/06/2024 6:31 AM EDT [facility] Blood Venous blood specimen / Unknown Venipuncture / Unknown 09/06/2024 5:59 AM EDT 09/06/2024 6:20 AM EDT Scotty Valdes MD LAB BLOOD ORDERABLES Final Resul t Performing Organization Address [facility]/ZIP Co de Phone Number [facility] [address] [place] [address], [place] [phone] * (ABNORMAL) MRSA molecular study (09/05/2024 8:11 PM EDT) [facility] MRSA Screen PCR Detected (A) Not Detected LAB MICROBIOLOGY METHOD 09/06/2024 5:44 AM EDT [facility] Swab Both anterior nares / Unknown Non-blood Collection / Unknown 09/05/2024 8:11 PM EDT 09/05/2024 8:46 PM EDT Urban Moreau MD LAB MICROBIOLOGY - GENERAL ORDERABLES Final Result Performing Organization Address [facility] de Phone Number [facility] [address] [place] [address], [place] [phone] * (ABNORMAL) Basic metabolic panel (09/05/2024 5:59 AM EDT) [facility] Sodium 135 133 - 145 mmol/L LAB CHEMISTRY METHOD 09/05/2024 8:03 AM EDT [facility] Potassium 3.6 3.5 - 5.5 mmol/L LAB CHEMISTRY METHOD 09/05/2024 8:03 AM EDT [facility] Chloride 99 96 - 110 mmol/L LAB CHEMISTRY METHOD 09/05/2024 8:03 AM EDT [facility] CO2 31 21 - 32 mmol/L LAB CHEMISTRY METHOD 09/05/2024 8:03 AM [facility] Anion Gap 5 3 - 11 LAB CHEMISTRY METHOD 09/05/2024 8:03 AM [facility] Glucose 125(H) 70 - 100 mg/dL LAB CHEMISTRY METHOD 09/05/2024 8:03 AM [facility] BUN 24 5 - 25 mg/dL LAB CHEMISTRY METHOD 09/05/2024 8:03 AM [facility] Creatinine 1.12 0.70 - 1.30 mg/dL LAB CHEMISTRY METHOD 09/05/2024 8:03 AM [facility] eGFR 69 >=60 mL/min/1. 73m2 LAB CHEMISTRY METHOD 09/05/2024 8:03 AM [facility] Comment:Calculation based on the??Chronic Kidney Disease Epidemiology Collaboration (CKD-EPI) equation refit??without adjustment for race. BUN/Creatinine Ratio 21.4 LAB CHEMISTRY METHOD 09/05/2024 8:03 AM [facility] Calcium 9.2 8.5 - 10.5 mg/dL LAB CHEMISTRY METHOD 09/05/2024 8:03 AM [facility] Blood Venous blood specimen / Unknown Venipuncture / Unknown 09/05/2024 5:59 AM EDT 09/05/2024 7:20 AM EDT us Urban Moreau MD LAB BLOOD ORDERABLES Final Result [facility] [address] [place] [address], * CT Maxillofacial w Contrast (09/04/2024 10:02 PM EST) Anatomical Region Laterality Modality Head and Neck Computed Tomogra phy 09/04/2024 11:2 3 PM EST Impressions 09/04/2024 11:23 PM EST 1. Left periorbital and left lateral periorbital soft tissue swelling this could represent preseptal cellulitis. The left intraconal and extraconal fat is preserved. The soft tissue swelling and edema extends inferior to involve the left malar fat. Extensive swelling of the left cheek superficial to the left mandible and extending into the proximal left neck. Soft tissue swelling and edema is greatest involving the left cheek. No evidence for organized fluid collection or abscess. Evaluation for fluid collection is limited without the use of IV contrast. Findings are most consistent with cellulitis. 2. Minimal mucosal thickening involving the left maxillary sinus. Mucosal thickening involving the bilateral ethmoid sinuses and frontal sinuses. This document has been electronically signed by: Ortiz Snider DO on 09/04/2024 23:23:05 Narrative 09/04/2024 11:23 PM EST INDICATION: Cellulitis, face CT maxillofacial without contrast Comparison: None Findings: Left periorbital and left lateral periorbital soft tissue swelling this could represent preseptal cellulitis. The left intraconal and extraconal fat is preserved. The soft tissue swelling and edema extends to involve the left malar fat. Extensive swelling of the left cheek superficial to the left mandible and extending into the proximal left neck. Soft tissue swelling and edema is greatest of the left cheek. No evidence for organized fluid collection or abscess. Evaluation for fluid collection is limited without the use of IV contrast. Findings are most consistent with cellulitis. The patient is nearly edentulous Minimal mucosal thickening involving the left maxillary sinus. Mucosal thickening involving the bilateral ethmoid sinuses and frontal sinuses. No acute fractures. No dislocations. Temporomandibular joints are intact. Fatty replacement of the left parotid gland. Orbits normal. Visualized intracranial contents are within normal limits. No foreign bodies. Procedure Note Ortiz Snider MD - 09/04/2024 INDICATION: Cellulitis, face CT maxillofacial without contrast Comparison: None Findings: Left periorbital and left lateral periorbital soft tissue swelling this could represent preseptal cellulitis. The left intraconal and extraconal fat is preserved. The soft tissue swelling and edema extends to involve the left malar fat. Extensive swelling of the left cheek superficial to the left mandible and extending into the proximal left neck. Soft tissue swelling and edema is greatest of the left cheek. No evidence for organized fluid collection or abscess. Evaluation for fluid collectionis limited without the use of IV contrast. Findings are most consistentwith cellulitis. The patient is nearly edentulous Minimal mucosal thickening involving the left maxillary sinus. Mucosal thickening involving the bilateral ethmoid sinuses and frontal sinuses. No acute fractures. No dislocations. Temporomandibular joints are intact. Fatty replacement of the left parotid gland. Orbits normal. Visualized intracranial contents are within normal limits. No foreign bodies. IMPRESSION: 1. Left periorbital and left lateral periorbital soft tissue swellingthis could represent preseptal cellulitis. The left intraconal and extraconal fat is preserved. The soft tissue swelling and edema extends inferior to involve the left malar fat. Extensive swelling of the left cheek superficial to the left mandible and extending into the proximal left neck. Soft tissue swelling and edema is greatest involving the leftcheek. No evidence for organized fluid collection or abscess. Evaluation for fluid collection is limited without the use of IV contrast. Findings are most consistent with cellulitis. 2. Minimal mucosal thickening involving the left maxillary sinus.Mucosal thickening involving the bilateral ethmoid sinuses and frontal sinuses. This document has been electronically signed by: Ortiz Snider DO on 09/04/2024 23:23:05 us Garrison Gandhi MD IMG CT PROCEDURES Final Result * Blood Culture, Peripheral #2 (09/04/2024 9:22 PM EST) Only the most recent of2 resultswithin the time period is included. [facility] Culture, Blood No growth at 5 days 09/10/2024 12:02 AM EDT [facility] Blood Venous blood specimen / Unknown Venipuncture / Unknown 09/04/2024 9:22 PM EST 09/04/2024 9:56 PM EST Garrisoncharlie Gandhi MD LAB MICROBIOLOGY - GENERAL TONY GARLAND Final Result [facility] [address] [place] [address], [place] [phone] * APTT (09/04/2024 8:44 PM EST) [facility] aPTT 36.1 24.1 - 39.3 sec LAB COAGULATION METHOD 09/04/2024 9:27 PM EST [facility] Blood Venous blood specimen / Unknown Venipuncture / Unknown 09/04/2024 8:44 PM EST 09/04/2024 9:10 PM EST us Garrison Gandhi MD LAB BLOOD ORDERABLES Final Resu lt Performing Organization Address City/[facility]/ZIP Co de Phone Number [facility] [address] [place] [address], [place] [phone] * (ABNORMAL) Protime-INR (09/04/2024 8:44 PM EST) [facility] Protime 15.2(H) 10.6 - 13.9 sec LAB COAGULATION METHOD 09/04/2024 9:27 PM EST [facility] INR 1.2 LAB COAGULATION METHOD 09/04/2024 9:27 PM EST [facility] Blood Venous blood specimen / Unknown Venipuncture / Unknown 09/04/2024 8:44 PM EST 09/04/2024 9:10 PM EST us Garrison Gandhi MD LAB BLOOD ORDERABLES Final Resu lt Performing Organization Address City/[facility]/ZIP Co de Phone Number [facility] [address] [place] [address], [place] [phone] * Lactate (09/04/2024 8:44 PM EST) [facility] Lactate 1.2 0.4 - 2.0 mmol/L LAB CHEMISTRY METHOD 09/04/2024 9:38 PM EST [facility] Blood Venous blood specimen / Unknown Venipuncture / Unknown 09/04/2024 8:44 PM EST 09/04/2024 9:06 PM EST us Garrison Gandhi MD LAB BLOOD ORDERABLES Final Resu lt [facility] [address] [place] [address], * (ABNORMAL) Comprehensive Metabolic Panel (CMP) (09/04/2024 8:44 PM EST) Sodium 137 133 - 145 mmol/L LAB CHEMISTRY METHOD 09/04/2024 9:39 PM [facility] Potassium 3.8 3.5 - 5.5 mmol/L LAB CHEMISTRY METHOD 09/04/2024 9:39 PM [facility] Chloride 103 96 - 110 mmol/L LAB CHEMISTRY METHOD 09/04/2024 9:39 PM [facility] CO2 28 21 - 32 mmol/L LAB CHEMISTRY METHOD 09/04/2024 9:39 PM [facility] Anion Gap 6 3 - 11 LAB CHEMISTRY METHOD 09/04/2024 9:39 PM [facility] Glucose 145(H) 70 - 100 mg/dL LAB CHEMISTRY METHOD 09/04/2024 9:39 PM [facility] BUN 28(H) 5 - 25 mg/dL LAB CHEMISTRY METHOD 09/04/2024 9:39 PM [facility] Creatinine 1.21 0.70 - 1.30 mg/dL LAB CHEMISTRY METHOD 09/04/2024 9:39 PM [facility] eGFR 62 >=60 mL/min/1. 73m2 LAB CHEMISTRY METHOD 09/04/2024 9:39 PM [facility] Comment:Calculation based on the??Chronic Kidney Disease Epidemiology Collaboration (CKD-EPI) equation refit??without adjustment for race. BUN/Creatinine Ratio 23.1 LAB CHEMISTRY METHOD 09/04/2024 9:39 PM [facility] Calcium 9.5 8.5 - 10.5 mg/dL LAB CHEMISTRY METHOD 09/04/2024 9:39 PM [facility] AST (SGOT) 15 10 - 42 unit/L LAB CHEMISTRY METHOD 09/04/2024 9:39 PM [facility] ALT (SGPT) 19 10 - 60 unit/L LAB CHEMISTRY METHOD 09/04/2024 9:39 PM [facility] Alkaline Phosphatase 33(L) 42 - 121 unit/L LAB CHEMISTRY METHOD 09/04/2024 9:39 PM [facility] Total Protein 7.1 6.0 - 8.0 g/dL LAB CHEMISTRY METHOD 09/04/2024 9:39 PM [facility] Albumin 3.4 3.2 - 5.0 g/dL LAB CHEMISTRY METHOD 09/04/2024 9:39 PM [facility] Total Bilirubin 0.8 0.0 - 1.4 mg/dL LAB CHEMISTRY METHOD 09/04/2024 9:39 PM [facility] Blood Venous blood specimen / Unknown Venipuncture / Unknown 09/04/2024 8:44 PM EST 09/04/2024 9:10 PM EST Garrison B Hiram CHAVEZ LAB BLOOD ORDERABLES Final Resu lt [facility] [address] [place] [address], from Last 3 Months Additional Health Concerns Infection Onset Date Last Indicated MRSA 09/05/2024 09/05/2024 Insurance [employer] - [place] MEDICARE ADVANTAGE Advance Directives * No CPR/Do Not Intubate (Latest Code Status on File) Date Activated Date Inactivated Comments 09/05/2024 6:42 AM 09/08/2024 2:16 PM This code sta tus was ascertained in the following way: Code status discussion: discussion with patient To update the patient's code status, place a code status order. Do not modify or discontinue any currently active code status orders. * Full Code - Default Date Activated Date Inactivated Comments 09/05/2024 3:14 AM 09/05/2024 6:42 AM This is order is used when code status has not been discussed with the patient, or code status is otherwise unknown/unconfirmed To update the patient's code status, place a code status order. Do not modify or discontinue any currently active code status orders. Care Teams Hi Lo Driver Relationship Specialty Start Date End Date Royal Hill MD [address] [place] [address] PCP - General Internal Medicine 09/04/24
--- OUTSIDE RECORDS SUMMARY | 2024-10-04 15:15 | XMS_ITS | Continuity of Care Document ---
Author Organization [facility] Will lt Address [address] [place] [address]- Care Team Providers Care Batch Or Continuous Still Operator Name Role Phone Royal Hill MD Primary Care Physician En[place] [facility] [place](s): 09/24/24 - 10/01/24 [facility] Adult [address] [place] [address]- Encounter Diagnosis Hemiplegia affecting right dominant side(Discharge Diagnosis) - 09/24/24 History of hemorrhagic stroke with residual hemiparesis(Discharge Diagnosis) - 09/24/24 Attending Physician: Royal Hill MD Encounter Type: Office Visit Allergies, Adverse Reactions, Alerts Substance Criticality Severity Reaction Reaction Severity Status atenolol edema Active ciprofloxacin hives Active erythromycin hives swelling Active finasteride depression Active gabapentin swelling in face Ac tive carvedilol 1 multiple symptoms Active citalopram 2 serotonin syndrome Active angiotensin converting enzyme inhibitors 3 see comments Angioedema Active Flomax reaction being depression Active Motrin hives Active Norvasc rash Active Cardura numbness Active 1patient states was loopy, short of breath 2DEVELOEPD SEROTONIN SYNDROME 3patient on valsartan with no problems Immunizations Given and Recorded Vaccine Date Status Refusal Reason influenza virus vaccine, inactivated 04/19/24 Demond rded influenza virus vaccine, inactivated 03/28/24 Demond rded influenza virus vaccine, inactivated 05/23/23 Demond rded influenza virus vaccine, inactivated 03/23/23 Demond rded influenza virus vaccine, inactivated 05/08/22 Demond rded influenza virus vaccine, inactivated 04/12/22 Demond rded influenza virus vaccine, inactivated 04/24/21 Demond rded influenza virus vaccine, inactivated 03/24/21 Demond rded influenza virus vaccine, inactivated 03/29/20 Demond rded influenza virus vaccine, inactivated 04/12/19 Demond rded influenza virus vaccine, inactivated 04/27/18 Demond rded influenza virus vaccine, inactivated 07/09/17 Demond rded influenza virus vaccine, inactivated 03/26/17 Demond rded influenza virus vaccine, inactivated 04/01/16 Demond rded influenza virus vaccine, inactivated 07/27/15 Demond rded influenza virus vaccine, inactivated 04/15/13 Demond rded influenza virus vaccine, inactivated 1 04/02/09 Gi grey SARS-CoV-2(COVID-19)mRNA-LNP vac([id number]) 04/19/24 Recorded SARS-CoV-2(COVID-19)mRNA-LNP vac(lkq874) 03/28/24 Recorded SARS-CoV-2(COVID-19)mRNA-LNP vac(haq482) 05/23/23 Recorded zoster vaccine, inactivated 09/26/23 Recorded RSV vaccine preF3, recombinant 07/11/23 Recorded RSV vaccine preF3, recombinant 04/18/23 Recorded pneumococcal 20-valent conjugate vaccine 05/23/23 Recorded pneumococcal 20-valent conjugate vaccine 10/04/21 Recorded SARS-CoV-2(COVID-19)mRNA-LNP vac(gaq371) 04/18/23 Recorded [id number]-YgJ-0sWJF 12y+ bivalent booster vax 05/08/22 Recorded GNSD-LrR-6rGLN-1273 bivalent booster vax 04/12/22 Recorded tetanus/diphtheria/pertussis, acel(Tdap) 03/13/22 Recorded SARS-CoV-2 mRNA (rqfbosl-drwc-nkajk) vax 11/07/21 Recorded SARS-CoV-2 (COVID-19) mRNA-1273 vaccine 10/04/21 R ecorded SARS-CoV-2 (COVID-19) mRNA-1273 vaccine 04/26/21 R ecorded SARS-CoV-2 (COVID-19) mRNA-1273 vaccine 10/14/20 R ecorded SARS-CoV-2 (COVID-19) mRNA-1273 vaccine 09/16/20 R ecorded SARS-CoV-2 (COVID-19) mRNA BNT-162b2 vac 05/01/21 Recorded SARS-CoV-2 (COVID-19) mRNA BNT-162b2 vac 09/18/20 Recorded SARS-CoV-2 (COVID-19) mRNA BNT-162b2 vac 08/28/20 Recorded pneumococcal 23-valent vaccine 08/06/18 Recorded pneumococcal 23-valent vaccine 07/09/17 Recorded pneumococcal 13-valent vaccine 07/27/15 Recorded 1Result Comment: LOT# [id number] exp 12/27/2009 Medications cholecalciferol 1000 intl units oral tablet 1 tablet = 1,000 International_Units, By Mouth, Daily, # 30 tablet, 0 Refills, Maintenance, :24:16 PM EDT, Tablet Start Date: 10/24/11 Status: Ordered Quantity: 30.0 Unit: tablet Repeat number: 1 valsartan 160 mg oral tablet 1, tablet, By Mouth, Daily in AM, # 90 tablet, Refills 1, Maintenance, 06/10/24 3:37:00 PM EST, Route to Pharmacy Electronically, [id number], 180, cm, 05/12/24 10:32:00 EST, Height Start Date: 06/10/24 Status: Ordered Quantity: 90.0 Unit: tablet Repeat number: 1 Problem List Condition Confirmation Course Effective Dates Status Health Status Informant Prostatic abscess Confirmed Active Major Depression recurrent in remission Confirmed Active Glucose intolerance Confirmed Active Glaucoma Confirmed Active History of BPH Confirmed Active Hepatomegaly Confirmed Active History of colonoscopy 1 Confirmed Active Hypercalcemia Confirmed Active Hypercholesterolemia Confirmed Active Abnormal liver function test Confirmed Active Obese class I Confirmed Active Obstructive sleep apnea 2, 3 Confirmed Active Tinea cruris Confirmed Active Unilateral hearing loss Confirmed Active 1Colonoscopy 2015 positive small polyp, GI recommending repeat colonoscopy 2025. 2Followed by Dr. Aide Lewis 11/12 Diagnosis Diagnosis Type Effective Dates Health Status Clinical Service Informant Hemiplegia affecting right dominant side Discharge Diagnosis 09/24/24 History of hemorrhagic stroke with residual hemiparesis Discharge Diagnosis 09/24/24 Vital Signs Most recent to oldest [Reference Range]: 1 Height 180 cm (09/24/24 2:31 PM) Oxygen Saturation [94-100 %] 95 % (09/24/24 2:31 PM) Pulse Rate [55-90 bpm] 88 bpm (09/24/24 2:31 PM) Blood Pressure [90-138/55-84 mm Hg] 118/ 73mm Hg (09/24/24 2:31 PM) Mode of Delivery (Oxygen) Room air (09/24/24 2:31 PM) Blood pressure sites Arm, left (09/24/24 2:31 PM) Social History Social History Type Response Smoking Status Former smoker, quit more than 30 days ago; Other: Quit smoking age 57.; entered on: 09/05/22 Sex Sex Representation Male (finding) EKG study * Event Display: ECG 12-Lead Authored Date: Please click on pdf link to open report * Event Display: ECG 12-Lead Authored Date: Ventricular Rate: 86 BPM Atrial Rate: 86 BPM P-R Interval: 160 ms QRS Duration: 116 ms Q-T Interval: 352 ms QTC Calculation(Bazett): 421 ms P [place]: 56 degrees R [place]: -78 degrees T [place]: 54 degrees Normal sinus rhythm Left axis deviation Right bundle branch block Abnormal ECG When compared with ECG of 28-Jul-2012 16:37, Right bundle branch block is now Present Confirmed by YRIS EDDY MD ([id number]) on 09/24/2024 2:51:37 PM [place]: YRIS EDDY MD Patient Care team information Care Team Personnel Name: Royal Hill MD Position: [facility] Physician - Primary Care Member Role: PCP Address: [address] [place] [id number] Telecom: Name: Kusum Francois RN Position: S RN Supv Member Role: Primary Care Nurse Care Team Related Persons Name: HAMMAD WILKINSON Name: RIKA BURNETTE Name: LEXII FELTON Insurance Providers Guarantor name: ANGELIQUE BURNETTE Health Plan Information #: 1 Payer: NA Member Number: [id number] Policy Number: NA Group Number: [id number] Health Plan Information #: 2 Payer: NA Member Number: [id number] Policy Number: NA Group Number: [id number]
--- OUTSIDE RECORDS SUMMARY | 2024-10-04 15:15 | XMS_ITS | Clinical Summary ---
Author Organization [facility] Facility Address [address] [address] Care Team Providers Care Aerodynamics Engineer Name Role Phone Unavailable Primary Care Provider Unavailabl e Medications valsartan (DIOVAN) 160 MG tablet TAKE 1+ 1/2 TABLETS BY MOUTH ONCE A DAY 135 tablet 3 08/20/2022 Active Social History Tobacco Use Types Packs/Day Years Used Date Smoking Tobacco: Never Assessed Sex and Gender Information Value Date Recorded Sex Assigned at Not on file Legal Sex Male 5:14 PM EST Gender Identity Not on file Sexual Orientation Not on file Plan of Treatment Health Maintenance Due Date Last Done Comments Colorectal Cancer Screening: Annual FOBT 1998 Colorectal Cancer Screening: Colonoscopy 1998 Colorectal Cancer Screening: Sigmoidoscopy 1998 Pneumococcal Vaccine: 65+ Ye ars (1 of - PCV) 2014 Influenza Vaccine (Season Ended) 2025 Hepatitis B Vaccine Aged Out No longe r eligible based on patient's age to complete this topic
--- OUTSIDE RECORDS SUMMARY | 2024-10-04 15:16 | XMS_ITS | Data Portability ---
Author Organization [place] [facility], Allergy Address [address] [address] Care Team Providers Care Payroll Bookkeeper Name Role Phone HILLARY TRUJILLO Primary Care Provider [phone] Assessment Encounter Date Assessment Date Assessment LastModified by Organization Details LastModified Time 03/10/2024 03/10/2024 73 year-old male with amplification presents for cerumen impaction removal. No acute issues since last visit. Cerumen impaction removed bilaterally, which patient tolerated well. Otologic exam demonstrated TMs are intact with well-aerated middle ear spaces. Recommend 6-month follow-up for cerumen removal, sooner with issues. [email or web address] Not available 03/10/2024 15:11:21 Plan of Treatment Reminders Order Date Submit Date Provider Last Modified By Organization Details Last Modified Time Details Appointments Establish ed 15 2024 11:15A M IVETTE BRADSHAW PA-C Not available Not available Not available Lab None recorded. Referral None recorded. Procedures None recorded. Surgeries None recorded. Imaging None recorded. Medication Orders None recorded. Patient TargetsNo targets recorded. Patient InstructionsNo instructions recorded. Reason for Referral None Reported. Results Created Date Observation Date Name Description Value Unit Range Abnormal Flag Note LastModifiedBy Organization Detail LastModifiedTime 02/17/20 24 09/30/2018 imagi ng/john lane tic resul t No observ ation record ed. [email or web address] Not Available 21:55:22 02/17/20 24 02/24/2023 audio gram No observ ation record ed. [email or web address] Not Available 21:55:48 02/17/20 24 07/14/2018 audio gram No observ ation record ed. [email or web address] Not Available 21:56:17 02/17/20 24 08/02/2019 audio gram No observ ation record ed. [email or web address] Not Available 21:56:18 02/17/20 24 10/03/2021 audio gram No observ ation record ed. [email or web address] Not Available 21:56:44 02/17/20 24 12/26/2020 audio gram No observ ation record ed. [email or web address] Not Available 21:57:05 Result Notes None recorded. Problems Name Problem SNOMED Code Status Onset Date Resolution Date Notes Provider Name and Address Organization Details Recorded Time Impacted cerumen in left ear 16094232480 76943 Active 2016 Impacted cerumen, left ear; Note: Date Diagnose d: 07/31/2016 1:59 PM (H61.22) Not Available [facility] 4 02:39:00 Mass of neck 278851927 Active 2018 Localize d swelling , mass and lump, neck; Note: Date Diagnose d: 9 1:19 PM (R22.1) Not Available [facility] 4 02:38:54 Neck swelling 546183085 Active 2018 Localize d swelling , mass and lump, neck; Note: Date Diagnose d: 9 1:19 PM (R22.1) Not Available [facility] 4 02:38:54 Diffuse otitis externa 83954646 Completed 201601/30/2024 Diffuse otitis externa, left ear; Note: Date Diagnose d: 08/05/2016 3:51 PM (H60.312 ) Not Available [facility] 4 02:38:54 Disorder of left external ear 47960178566 87355 Active 2016 Other specifie d disorder s of left external ear; Note: Date Diagnose d: 08/01/2016 12:31 PM (H61.892 ) Not Available [facility] 4 02:39:01 Weakness of face muscles 47252369 Active 2018 Facial weakness ; Note: Date Diagnose d: 9 10:54 AM (R29.810 ) Not Available [facility] 4 02:38:55 Impacted cerumen of bilatera l ears 83277304188 38719 Active 2017 Impacted cerumen, bilatera l; Note: Date Diagnose d: 08/28/2017 2:02 PM (H61.23) Not Available [facility] 4 02:39:02 Abnormal auditory percepti on 50202153 Active 2016 Other abnormal auditory percepti ons, left ear; Note: Date Diagnose d: 7 2:46 PM (H93.292 ) Not Available [facility] 4 02:39:01 Sensorin eural hearing loss of bilatera l ears 866401925 Active 2016 Sensorin eural hearing loss, bilatera l; Note: Date Diagnose d: 7 2:41 PM (H90.3) Not Available [facility] 4 02:38:53 Problem Notes None recorded. Procedures Surgical History Date Name Laterality Status Provider Name and Address Organization Details Recorded Time 4 Cerumen removal without microscope bilat completed KIRSTIE SERRAON PA-C [address] [place] [address], [phone], [facility] - [facility] 03/10/2024 14:00:42 Imaging Results Imaging Date Name Status [facility]Modified by [facility] Details LastModified Time 09/30/2018 imaging/diagno stic result completed Information not available 02/17/2024 21:55:22 02/24/2023 audiogram completed Information not available 02/17/2024 21:55:48 07/14/2018 audiogram completed Information not available 02/17/2024 21:56:17 08/02/2019 audiogram completed Information not available 02/17/2024 21:56:18 10/03/2021 audiogram completed Information not available 02/17/2024 21:56:44 12/26/2020 audiogram completed Information not available 02/17/2024 21:57:05 Procedure Notes None recorded. Medical Equipment None Reported. Allergies Allergen ID Allergen Name Allergen Category Reaction Reaction Severity Criticality Documentation Date Start Date Code Code System Note Provider Name and Address Organization Details Recorded Time 64671 lisinopri l medicatio n other Not available Not available 11/11/2023 03820 RxNorm React ion: unkno wn, unspe cifie d;; Not Available [facility] 4 00:57:32 43923 aspirin medicatio n other Not available Not available 11/11/2023 1191 RxNorm React ion: unkno wn, unspe cifie d;; Not Available [facility] 4 00:57:34 02251 gabapenti n medicatio n other Not available Not available 11/11/2023 48344 RxNorm React ion: unkno wn, unspe cifie d;; Not Available [facility] 4 00:57:34 30630 ibuprofen medicatio n other Not available Not available 11/11/2023 5640 RxNorm React ion: unkno wn, unspe cifie d;; Not Available [facility] 4 00:57:35 50674 citalopra m medicatio n other Not available Not available 11/11/2023 2556 RxNorm React ion: unkno wn, unspe cifie d;; Not Available [facility] 4 00:57:39 47568 erythromy kaycee ethylsucc inate medicatio n other Not available Not available 11/11/2023 4056 RxNorm React ion: unkno wn, unspe cifie d;; Not Available [facility] 4 00:57:41 93384 fluoxetin e medicatio n other Not available Not available 11/11/2023 4493 RxNorm React ion: unkno wn, unspe cifie d;; Not Available [facility] 4 00:57:44 44825 sertralin e hydrochlo ride medicatio n other Not available Not available 11/11/2023 15501 7 RxNorm React ion: unkno wn, unspe cifie d;; Not Available [facility] 4 00:57:47 Medications Name Sig Start Date Stop Date Status Note LastModified by Organization Details LastModified Time sulfameth oxazole 800 mg-trimet hoprim 160 mg tablet TAKE 1 TABLET BY MOUTH EVERY 12 HOURS FOR 10 DAYS active Not Available Not Available No t Available ofloxacin 0.3 % ear drops Instill 3 drop into left ear twice a day 2022 active Medicati on ID: [id number] D uration Value: 5 Brand Name: ofloxaci n Send Method: E-Prescr ibed Sub s Allowed: subs OK Medic ationGen ericName : ofloxaci n Not Available Not Available Not Available tamsulosi n 0.4 mg capsule TAKE 1 CAPSULE BY MOUTH EVERY DAY active Not Available Not Available No t Available cephalexi n 500 mg capsule TAKE 1 CAPSULE BY MOUTH 3 TIMES A DAY FOR 10 DAYS active Not Available Not Available No t Available clotrimaz ole 1 % topical solution 09/19 completed Medicati on ID: [id number] P rescribe d By Name: WILLIAM Berry nd Name: clotrima zole Sen d Method: E-Prescr ibed Sub s Allowed: subs OK Speci al Instruct ion: 4 drops to affected ear three times a day X 14 days Med icationG enericNa me: clotrima zole Not Available Not Available Not Available ketoconaz ole 2 % topical cream APPLY TO AFFECTED AREA EVERY DAY active Not Available Not Available No t Available finasteri de 5 mg tablet TAKE 1 TABLET BY MOUTH EVERY DAY active Not Available Not Available No t Available valsartan 160 mg tablet TAKE 1 TABLET BY MOUTH EVERY DAY active Not Available Not Available No t Available TobraDex 0.3 %-0.1 % eye drops,tres [facility] 2016 active Medicati on ID: [id number] D uration Value: 5 Prescri bed By Name: WILLIAM Ayoub nd Name: TobraDex Send Method: E-Prescr ibed Sub s Allowed: subs OK Speci al Instruct ion: Instill 3 drops in the affect ear BID for 5 days Med icationG enericNa me: TobraDex Not Available Not Available Not Available Ciprodex 0.3 %-0.1 % ear drops,tres pension 4 drop 2016 active Medicati on ID: [id number] D uration Value: 5 Prescri bed By Name: WILLIAM Ayoub nd Name: Ciprodex Send Method: E-Prescr ibed Sub s Allowed: subs OK Medic ationGen ericName : Ciprodex Not Available Not Available Not Available Vitamin D3 50 mcg (2,000 unit) capsule 2016 active Medicati on ID: [id number] B rand Name: Vitamin D3 Send Method: E-Prescr ibed Sub s Allowed: subs OK Medic ationGen ericName : Vitamin D3 Not Available Not Available Not Available Vitals None Recorded Social History None recorded. Functional Status None recorded. Mental Status None recorded. Family History Nothing Reported. Medical History No medical history recorded. Past Encounters Encounter ID Performer Location Encounter Start Date Encounter Closed Date Diagnosis/Indication Diagnosis SNOMED-CT Code Diagnosis ICD10 Code Diagnosis Note [id number] JOHN CERDA MD [facility] [address] [address] 03/10/2024 12:23:32 03/10/2024 13:26:37 Impacted cerumen of bilateral ears [id number] 506916 H61.23 Sensorineu ral hearing loss of bilateral ears 902047738 H90.3 Health Concerns Section Related Observation LastModified by Organization Detai ls LastModified Time None Recorded Concern Status LastModified by Organization Details LastModified Time None Recorded Advance Directives Directive None Recorded Payers Encounter Date Sequence Insurance Name Policy Number Policy [place] Covered Member ID [place] Member ID Guarantor Name 03/10/2024 1 [facility]: MEDICARE PPO BLUE (MEDICARE REPLACEMENT PPO) [id number] Beau Schwartz [id number] Beau Schwartz Notes Date Note Type Note Provider Name and Address Organization Details Recorded Time 03/10/2024 text/html 73 year-old male with history of left CVA and 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 Reports no change in hearing. Denies otalgia, otorrhea, and change in tinnitus. JOHN CERDA MD [address] [place] [address], [phone], [facility] - [facility] 03/10/2024 16:46:53
== END 2024-10-04 14:12 | disposition home or self-care (01) ==
LOC: HO.HUSH 12:55
PROVIDERS: PCP Internal Medicine; Visit Provider Urology
DX: N40.1 Benign prostatic hyperplasia with lower urinary tract symptoms (principal); Z86.73 Personal history of transient ischemic attack (TIA), and cerebral infarction without residual deficits; Z13.9 Encounter for screening, unspecified
CPT/HCPCS: 99213

== ENCOUNTER → 2024-10-04 12:54 | Outpatient (BNVA) | payer MEDICARE, SELFPAY | PROVIDERS: PCP Internal Medicine; Visit Provider Urology | DX: N40.1 Benign prostatic hyperplasia with lower urinary tract symptoms (principal); Z86.73 Personal history of transient ischemic attack (TIA), and cerebral infarction without residual deficits | CPT/HCPCS: 51798; 81003; 99212 ==

== ENCOUNTER 2025-02-16 19:26 | Emergency (ER) | payer MEDICARE, SELFPAY ==
--- NOTE | ~2025-02-16 | XR_ITS ---
CLINICAL HISTORY: pain --- Additional Notes or Special Instructions: please evaluate for obstructive pattern 1 view abdomen Comparison: None provided Findings: No pneumoperitoneum or pneumatosis. Moderate colonic stool burden. No abnormal calcifications. No acute fractures. IMPRESSION: Normal bowel gas pattern. Moderate colonic stool burden. This document has been electronically signed by: Sandeep Hensley MD on 02/16/2025 20:18:33
[2025-02-16 19:28] VITALS: BP 155/94; PULSE 105; RESP 20; TEMP 36.7; O2SAT 96; BMI 27.1
--- NOTE | 2025-02-16 19:43 | ED.GENADULT ---
HPI - General Adult General Chief complaint: Abdominal Pain Stated complaint: ? hernia Time Seen by Provider: 02/16/25 20:27 Source: patient, RN notes reviewed and old records reviewed Mode of arrival: wheelchair Limitations: no limitations History of Present Illness ED Provider: Janiya CHILDS narrative: 74-year-old male past medical history significant for previous CVA, hypertension, known umbilical hernia presents for evaluation of abdominal pain. Patient reports that his hernia is popping out and causing increased pain since earlier today His pain started when he stood up He reports when he laid down his pain was somewhat improved He has not had any vomiting but reports that his stomach has been upset. ? He reports that he is still passing flatulence but has not had a bowel movement for the last 2 days or so Denies any fevers or chills No other complaints or concerns at this time Related Data Home Medications ?Medication ?Instructions ?Recorded ?Confirmed cholecalciferol (vitamin D3) 25 25 mcg PO QAM 11/21/23 10/04/24 mcg (1,000 unit) tablet (Vitamin D3) valsartan 160 mg tablet 160 mg PO QAM 11/21/23 10/04/24 tafluprost (PF) 0.0015 % eye drops 1 drp ophthalmic (eye) BEDTIME 06/04/24 10/04/24 in a dropperette Allergies Allergy/AdvReac Type Severity Reaction Status Date / Time KAY Inhibitors (KAY Allergy Severe SWELLING Verified 02/16/25 19:29 INHIBITORS) ciprofloxacin (CIPROFLOXACIN) Allergy Severe SWELLING Verified 02/16/25 19:29 gabapentin (GABAPENTIN) Allergy Severe ANAPHYLAXIS Verified 02/16/25 19:29 erythromycin base Allergy Intermediate SHORTNESS Verified 02/16/25 19:29 (ERYTHROMYCIN BASE) OF BREATH ibuprofen (From MOTRIN) Allergy Intermediate HIVES Verified 02/16/25 19:29 SERATONIN Allergy Severe SERATONIN Uncoded 02/16/25 19:29 SYNDROME Review of Systems Constitutional: Constitutional: Denies body ache(s), Denies chills, Denies fever(s) and Denies headache(s) Eyes: Eyes: Denies blurry vision ENT: Denies headache(s) Cardiovascular: Cardiovascular: Denies chest pain and Denies dyspnea on exertion Respiratory: Respiratory: Denies cough and Denies dyspnea on exertion Gastrointestinal: Gastrointestinal: Reports abdominal pain, Denies diarrhea, Denies loose stools and Denies vomiting Musculoskeletal: Musculoskeletal: Denies back pain Integumentary/Breasts: Skin/Breast: Denies rash Neurologic: Denies headache(s) PMFSH Past Medical History Medical History Weakness Urinary tract infection Sepsis Hypertension Social History Social History Household Members: Family Housing: House Do you presently have visiting nurse or other home services: No Patient Tobacco Use Status: Never used Tobacco Advance Directives: Yes Advance Directives on File: Yes Advance Directives Date on File: 11/28/23 service: Yes Physical Exam ED Vital Signs: Vital Signs - 24 hr 02/16/25 19:28 02/16/25 20:29 Temperature 98.1 F 98.1 F Pulse Rate 105 H 105 H Respiratory Rate 20 20 Blood Pressure 155/94 H 155/94 H Pulse Oximetry 96 96 Oxygen Delivery Method Room Air Room Air BMI result Body Mass Index 27.1 Const General: healthy appearing, comfortable, no acute distress, alert and awake Nutritional Appearance: well nourished Orientation/consciousness: patient oriented x3 HENMT Head: Yes normocephalic and Yes atraumatic Eyes Eyelids: Yes eyelids normal Conjunctivae: conjunctivae normal Sclerae: sclerae normal Corneas: corneas normal Pupils: Equal, round and reactive pupils present EOM: EOMs intact bilaterally Neck Neck: Yes full ROM Resp Effort & Inspection: normal respiratory effort, able to speak in complete sentences and not labored Cardio Rate: regular rate Rhythm: regular rhythm GI Other: There was an obvious periumbilical hernia protruding without any surrounding discoloration, ecchymosis or erythema. I was able to reduce this with light pressure while the patient is in a seated position in his wheelchair. Inspection: No distended Palpation (GI): Soft to palpation, not firm and not rigid Skin General skin exam: elasticity normal Neuro General: patient oriented x3 Cranial nerves: Yes Equal, round and reactive pupils present and Yes Bilaterally intact EOM present Cognition (Neuro): normal cognition Extrem Other: Moving all extremities well without any obvious deformities Course Course Course Narrative: RME, this is a rapid medical exam performed by Berlin Denson please refer to primary provider for complete H&P- 74-year-old male with past medical history significant for CVA with right-sided deficits and left-sided facial droop presents for evaluation of abdominal pain. He has a known umbilical hernia. He reports it has been bulging today after he stood up and he has been having significant pain. He reports he has been passing gas but has not had a bowel movement for the last couple of days. He reports that he is typically fairly regular. I was able to reduce his inguinal hernia with him in his seated position. His pain improved. However given his limited flatulence today and last bowel movemetn a couple of days ago we will get basic labs with a lactic acid and a KUB to evaluate for obstruction. Medical Decision Making Medical Decision Making [facility] Narrative: 74-year-old male past medical history as above presents for evaluation of abdominal pain in the area of his umbilical hernia. His pain improved almost immediately after his hernia was easily reduced. This rules out strangulated and incarcerated hernia. He reports he is passing flatulence so a bowel obstructions favored to be less likely. He had a KUB ordered which does not show any obstructive bowel gas pattern. He does have moderate constipation which was likely contributing to his worsening hernia. Basic labs were ordered which are reassuring, lactic acid within normal limits, no significant anemia, no leukocytosis. Renal function within normal limits. Given that the patient's pain resolved with reduction of his hernia and it does not appear to be obstructed, he will be discharged with outpatient General surgery follow-up. Return precautions were given Differential Diagnosis Differential Diagnoses: The differential diagnosis associated with the presentation includes Umbilical hernia Incarcerated hernia Strangulated hernia Constipation Small-bowel obstruction Admission/Observation Consideration of admission/observation: Escalation of care including admission/observation considered Lab Data [facility] Lab Attestation statement: I reviewed the patient's lab results. As above 02/16/25 19:57 02/16/25 19:57 Labs: Lab Results 02/16/25 Range/Units 19:57 WBC 8.2 (4.8-10.8) X10*3/uL RBC 5.80 (4.60-5.80) X10*6/uL Hgb 16.8 (14.0-18.0) g/dl Hct 49.1 (42.0-52.0) % MCV 84.7 (80.0-98.0) fL MCH 29.0 (27.0-33.0) pg MCHC 34.2 (31.0-36.0) g/dl RDW 13.4 (11.0-16.0) % Plt Count 177 D (160-400) X10*3/uL MPV 9.3 L (9.4-12.4) fL Immature Gran % (Auto) 0.4 (0.0-0.4) % Neut % (Auto) 78.4 H (45-73) % Lymph % (Auto) 13.8 L (20-40) % Redwood % (Auto) 5.3 (2-11) % Eos % (Auto) 1.6 (0-4) % Baso % (Auto) 0.5 (0-2) % Lymph # (Auto) 1.1 L (1.2-4.9) X10*3/uL Redwood # (Auto) 0.4 (0.1-1.2) X10*3/uL Eos # (Auto) 0.1 (0.0-0.4) X10*3/uL Baso # (Auto) 0.0 (0.0-0.2) X10*3/uL Abs Immat Gran (auto) 0.03 (0.00-0.03) X10*3/uL Absolute Neuts (auto) 6.4 (2.0-8.3) x10*3/uL Absolute Nucleated RBC 0.000 (0.0-0.012) X10*3/uL Nucleated RBC % (auto) 0.0 (0.0-0.2) /100WBC Sodium 140 (135-145) mmol/L Potassium 4.0 (3.3-5.1) mmol/L Chloride 105 (96-108) mmol/L Carbon Dioxide 25 (22-29) mmol/L Anion Gap 14 (12-20) BUN 20 H (9-16) mg/dL Creatinine 1.13 (0.5-1.4) mg/dL Estim Creat Clear Calc 60.1 Estimated GFR > 60 Random Glucose 105 (60-115) mg/dL Lactic Acid 1.3 (0.5-2.0) mmol/L Calcium 9.7 (8.4-10.2) mg/dL Total Bilirubin 0.7 (0.0-1.0) mg/dL AST 20 (5-37) U/L ALT 21 (0-40) U/L Alkaline Phosphatase 25 L (39-117) U/L Total Protein 7.8 (6.5-8.0) g/dL Albumin 4.5 (3.5-5.0) g/dL Lipase 23 (8-78) U/L Independent Interpretation I performed an independent interpretation of an: Plain X-Ray (Agree with Radiology interpretation, constipation without obvious obstructive pattern) Radiology Impression Discussion of test interpretation with radiology: I have reviewed the radiologist's reading. Radiologist Impression: Findings: No pneumoperitoneum or pneumatosis. Moderate colonic stool burden. No abnormal calcifications. No acute fractures. IMPRESSION: Normal bowel gas pattern. Moderate colonic stool burden. This document has been electronically signed by: Sandeep Hensley MD on 02/16/2025 20:18:33 Tests considered The following testing was considered but not selected: Consider CT scan of the abdomen pelvis with both IV and oral contrast. This was deferred as the patient's pain improved with reduction of his hernia Discharge Plan Discharge Clinical Impression: Hernia, umbilical Patient Disposition: Home, Self-Care Instructions: Umbilical Hernia (ED) Additional Instructions: I was able to reduce your umbilical hernia with some slight pressure. I do recommend that you follow up with General surgery as you may benefit by having the hernia repaired. In the meantime, you may wish to get an abdominal binder that will help put pressure on your abdomen to try to prevent the hernia from protruding She return to the ER if you have severe, intractable abdominal pain in the area of the hernia or if the hernia is turning colors such as red or purple Follow-up with your primary doctor, return for new or worsening symptoms. I recommend that you continue the MiraLax until you have a bowel movement Prescriptions: No Action valsartan 160 mg tablet 160 mg PO QAM cholecalciferol (vitamin D3) [Vitamin D3] 25 mcg (1,000 unit) Tablet 25 mcg PO QAM tafluprost (PF) 0.0015 % dropperette 1 drp ophthalmic (eye) BEDTIME Referrals: Quintin Duenas MD [Physician, General Surgery] Referral Note: Umbilical hernia Interventions: ED Discharge Assessment Last Done: 02/16/25 20:29 Discharge Date/Time: 02/16/25 20:36 Print Language: Ukrainian
--- NOTE | 2025-02-16 19:53 | MHC.EDTECH ---
1948 called for lab work in radiology dept
[2025-02-16 20:00] LABS: MANUAL DIFF FLAG NO
[2025-02-16 20:02] LABS: Hematocrit 49.1 % (42.0-52.0); Hemoglobin 16.8 g/dl (14.0-18.0); Imm Gran Abs Auto 0.03 X10*3/uL (0.00-0.03); Imm Gran Pct Auto 0.4 % (0.0-0.4); Lymphocytes Absolute Auto 1.1 X10*3/uL (1.2-4.9); Mean Corpuscular HGB Conc 34.2 g/dl (31.0-36.0); Mean Corpuscular Hemoglobin 29.0 pg (27.0-33.0); Mean Corpuscular Volume 84.7 fL (80.0-98.0); NRBC Abs Auto 0.000 X10*3/uL (0.0-0.012); NRBC Pct Auto 0.0 /100WBC (0.0-0.2); Platelet Count 177 X10*3/uL (160-400); Red Blood Count 5.80 X10*6/uL (4.60-5.80); White Blood Count 8.2 X10*3/uL (4.8-10.8)
[2025-02-16 20:19] LABS: Alanine Aminotransferase 21 U/L (0-40); Albumin Level 4.5 g/dL (3.5-5.0); Alkaline Phosphatase 25 U/L (39-117); Anion Gap 14 (12-20); Aspartate Amino Transferase 20 U/L (5-37); Blood Urea Nitrogen 20 mg/dL (9-16); Calcium 9.7 mg/dL (8.4-10.2); Carbon Dioxide 25 mmol/L (22-29); Chloride 105 mmol/L (96-108); Creatinine Clr Calc Pharmacy 60.1; Estimated Glomerular Filt Rate > 60; Lipase 23 U/L (8-78); Potassium 4.0 mmol/L (3.3-5.1); Sodium 140 mmol/L (135-145); Total Protein 7.8 g/dL (6.5-8.0)
[2025-02-16 20:29] VITALS: BP 155/94; PULSE 105; RESP 20; TEMP 36.7; O2SAT 96
== END 2025-02-16 20:36 | disposition home or self-care (01) ==
PROVIDERS: Physician Assistant; Emergency Provider Emergency Medicine Emergency Medical Services; PCP Internal Medicine
DX: K42.9 Umbilical hernia without obstruction or gangrene (principal); R10.2 Pelvic and perineal pain; Z86.73 Personal history of transient ischemic attack (TIA), and cerebral infarction without residual deficits; Z79.899 Other long term (current) drug therapy
CPT/HCPCS: 36415; 74018; 80053; 83605; 83690; 85025; 99282; 99283

== ENCOUNTER → 2025-02-16 19:37 | Outpatient (BNV) | payer MEDICARE, SELFPAY | PROVIDERS: Emergency Provider Emergency Medicine Emergency Medical Services; PCP Internal Medicine; Visit Provider Student in an Organized Health Care Education/Training Program | DX: K59.00 Constipation, unspecified (principal) | CPT/HCPCS: 74018 ==

== ENCOUNTER 2025-02-18 10:57 | Outpatient (AMB) | payer MEDICARE, SELFPAY ==
--- OUTSIDE RECORDS SUMMARY | 2025-02-12 23:59 | XMS_ITS | Continuity of Care Document ---
Author Organization [facility] Will lt Address [address] [place] [address]- Care Team Providers Care Titrator Name Role Phone Royal Hill MD Primary Care Physician [phone] Encounter [facility] Date(s): 01/13/25 - 02/12/25 [facility] Adult [address] [place] [address]- Encounter Type: Triage Allergies, Adverse Reactions, Alerts Substance Criticality Severity Reaction Reaction Severity Status atenolol edema Active ciprofloxacin hives Active citalopram 1 serotonin syndrome Active Cardura numbness Active erythromycin hives swelling Active finasteride depression Active gabapentin swelling in face Ac tive carvedilol 2 multiple symptoms Active angiotensin converting enzyme inhibitors 3 see comments Angioedema Active Flomax reaction being depression Active Motrin hives Active Norvasc rash Active 1DEVELOEPD SEROTONIN SYNDROME 2patient states was loopy, short of breath 3patient on valsartan with no problems Immunizations [...] vaccine, inactivated 1 04/02/09 Gi grey SARS-CoV-2(COVID-19)mRNA-LNP vac(iew230) 04/19/24 Recorded SARS-CoV-2(COVID-19)mRNA-LNP vac(xgj489) 03/28/24 Recorded SARS-CoV-2(COVID-19)mRNA-LNP vac(srq779) 05/23/23 Recorded zoster vaccine, inactivated 09/26/23 Recorded RSV vaccine preF3, recombinant 07/11/23 Recorded RSV vaccine preF3, recombinant 04/18/23 Recorded pneumococcal 20-valent conjugate vaccine 05/23/23 Recorded pneumococcal 20-valent conjugate vaccine 10/04/21 Recorded SARS-CoV-2(COVID-19)mRNA-LNP vac(uyd371) 04/18/23 Recorded [id number]-[id number] 12y+ bivalent booster vax 05/08/22 Recorded AIGH-QwO-6tLXR-1273 bivalent booster vax 04/12/22 Recorded tetanus/diphtheria/pertussis, acel(Tdap) 03/13/22 Recorded SARS-CoV-2 mRNA (kalvjsz-jwel-xzuog) vax 11/07/21 Recorded SARS-CoV-2 (COVID-19) mRNA-1273 vaccine [...] 13-valent vaccine 07/27/15 Recorded 1Result Comment: LOT# [id number] exp 12/27/2009 Medications cholecalciferol 1000 intl units oral tablet 1 tablet = 1,000 International_Units, By Mouth, Daily, # 30 tablet, 0 Refills, Maintenance, :24:16 PM EDT, Tablet Start Date: 10/24/11 Status: Ordered Quantity: 30.0 Unit: tablet Repeat number: 1 tafluprost 0.0015% ophthalmic solution 0 Refills, Maintenance, 10/29/24 10:32:00 AM EDT, Partial fill upon patient request if the prescription is for a schedule II opioid drug. Start Date: 10/29/24 Status: Ordered Repeat number: 1 valsartan 160 mg oral tablet 1, tablet, By Mouth, Daily in AM, # 90 tablet, Refills 1, Tot. Refills 1, Maintenance, 10/29/24 10:52:00 AM EDT, Route to Pharmacy Electronically, [facility]/pharmacy #[id number], 180, cm, 10/29/24 10:32:00 EDT, Height Start Date: 10/29/24 Status: Ordered Quantity: 90.0 Unit: tablet Repeat number: 2 Problem List Condition Confirmation Course Effective Dates Status Health Status Informant Prostatic abscess Confirmed Active Major Depression recurrent in remission Confirmed Active Glucose intolerance Confirmed Active Glaucoma Confirmed Active History of BPH Confirmed Active Hepatomegaly Confirmed Active History of colonoscopy 1 Confirmed Active Hypercalcemia Confirmed Active Hypercholesterolemia Confirmed Active Abnormal liver function test Confirmed Active Obstructive sleep apnea 2, 3 Confirmed Active Tinea cruris Confirmed Active Unilateral hearing loss Confirmed Active 1Colonoscopy 2015 positive small polyp, GI recommending repeat colonoscopy 2025. 2Followed by Dr. Aide Lewis 11/12 Social History Social History Type Response Smoking Status Former smoker, quit more than 30 days ago; Other: Quit smoking age 57.; entered on: 09/05/22 Sex Sex Representation Male (finding) Patient Care team information Care Team Personnel Name: Royal Hill MD Position: [facility] Physician - Primary Care Member Role: PCP Address: [address] [place] [address]- Telecom: Name: Kusum Francois RN Position: [facility] RN Supv Member Role: Primary Care Nurse Care Team Related Persons Name: HAMMAD WILKINSON Name: RIKA BURNETTE Name: LEXII FELTON Insurance Providers Guarantor name: ANGELIQUE BURNETTE Health Plan Information #: 1 Payer: [facility] PPO Payer Identifier: SAMIRA Member Number: [id number] Group Number: [id number] Subscriber Identifier: [id number] Relationship to Subscriber: self Coverage Type: Medicare PPO Coverage Verification Date: Telecom: NA Address:
--- NOTE | 2025-02-18 11:01 | MHC.OFFVIS ---
Vital Signs 02/18/25 11:10 Height 5 ft 11 in Weight 194 lb BMI 27.1 BP 135/80 Blood Pressure Location Lt brachial Position Sitting Pulse 72 Intake Visit Reasons: umbilical hernia Intake Note: Patient seen at [facility] emergency department for abdominal pain. Present today for umbilical hernia evaluation. Present for at least 16yrs. Patient c/o: painful when protruding. Denies constant pain. Imaging: No Rheostat Assembler Required: No Accompanied by: Self / Same As Patient Allergies KAY Inhibitors (KAY INHIBITORS) Allergy (Severe, Verified 02/18/25 11:07) SWELLING ciprofloxacin (CIPROFLOXACIN) Allergy (Severe, Verified 02/18/25 11:07) SWELLING gabapentin (GABAPENTIN) Allergy (Severe, Verified 02/18/25 11:07) ANAPHYLAXIS erythromycin base (ERYTHROMYCIN BASE) Allergy (Intermediate, Verified 02/18/25 11:07) SHORTNESS OF BREATH ibuprofen (From MOTRIN) Allergy (Intermediate, Verified 02/18/25 11:07) HIVES SERATONIN Allergy (Severe, Uncoded 02/18/25 11:07) SERATONIN SYNDROME HPI HPI umbilical hernia: Details: patient seen for umbilical hernia. Was seen in [facility] ED on 02/16 for increasing pain at the umbilicus. This was able to be reduced in the ED and the patient was recommended to follow up with general surgery. He reports this hernia has been present for about 16 years and intermittently causes him pain. Hes noticed it has been getting larger and protruding more recently which is why he wants to have it repaired. Is has not been painful since he presented to the ED, but has protruded again He reports a history of CVA in 2008, struggles with right sided weakness now and ambulates with a wheelchair. He has hypertension, that is well controlled on valsartan. States he is prediabetic, but it follow with his PCP. Not requiring medication. He denies any history of abdominal surgery. He is hoping to have his hernia repaired prior to moving to [place] to move with is daughter and reports he is flexible but would like to ideally be able to move in march. He wants to get this done prior to moving because he will not be established with care in [place]. [facility] Medical History (Updated 02/18/25 @ 13:56 by Ronny Agarwal PA-C) Hx of benign neoplasm Cataracts, bilateral Weakness Urinary tract infection Sepsis Hypertension Family History (Updated 02/18/25 @ 11:10 by COURTNEY Sarkar) Sister Breast CA Social History Household Members: Family Housing: House Do you presently have visiting nurse or other home services: No Patient Tobacco Use Status: Never used Tobacco Advance Directives Date on File: 11/28/23 service: Yes Physical Exam Vital Signs: Last Vital Signs Pulse 72 02/18/25 11:10 BP 135/80 02/18/25 11:10 BMI result Body Mass Index 27.1 Const General: comfortable and no acute distress Orientation/consciousness: patient oriented x3 Limitations: wheelchair HEENT Face and sinus: No face symmetric (left sided drooping from CVA) Resp Effort & Inspection: normal respiratory effort and able to speak in complete sentences GI Other: 2-3 cm reducible umbilical hernia. No overlying skin changes. Mildly tender Inspection: No distended Palpation (GI): Soft to palpation and Tenderness to palpation present (GI) (mild at umbilical hernia) Neuro General: patient oriented x3 Assessment & Plan Assessment & Plan (1) Hernia, umbilical: Code(s): K42.9 - Umbilical hernia without obstruction or gangrene Category: Medical Qualifiers: Obstruction and gangrene presence: without obstruction or gangrene Qualified Code(s): K42.9 - Umbilical hernia without obstruction or gangrene Plan 74 year old male with a history of CVA (2008), hypertension (controlled on valsartan), known umbilical hernia presenting to the office following an ED visit on 02/16 for abdominal pain, related to hernia. The hernia was able to be reduced in the ED. Patient has had this hernia for year but has been increasing in size, now causing him more pain. Currently it is not causing him pain but he would still like to have this repaired. On exam the patient does have a 2-3 cm umbilical hernia that is protruding just superior to the umbilicus. I was able to reduce this, with minimal discomfort to the patient. I introduced this patient to Dr. gray who discussed the procedure of hernia repair with mesh, and the associated risks with the procedure, including but not limited to, bleeding, infection, injury to bowel. Patient understands and wants to proceed with surgery. Our manager surgical will reach out to him regarding preoperative clearance and scheduling of his surgery. He was advised that if he begins having intractable pain, inability to pass gas or stool, changes to the skin at the umbilicus, nausea or vomiting, that he shuold be seen at the ED. Coding Level of Care Code New Pt Level 4 (49389) Diagnoses Umbilical hernia without obstruction and without gangrene K42.9 Obstruction and gangrene presence: without obstruction or gangrene
--- OUTSIDE RECORDS SUMMARY | 2025-02-18 11:02 | XMS_ITS | Clinical Summary ---
Author Organization [facility] Facility Address [address] [address] Care Team Providers Care Customer Supply Chain Analyst Name Role Phone Unavailable Primary Care Provider [...] Colorectal Cancer Screening: Sigmoidoscopy 1998 Pneumococcal Vaccine: 50+ Ye ars (1 of 1 - PCV) 1999 Influenza Vaccine (#1) 2025 Hepatitis B Vaccine Aged Out No longe r eligible based on patient's age to complete this topic
--- OUTSIDE RECORDS SUMMARY | 2025-02-18 11:02 | XMS_ITS | Clinical Summary ---
Author Organization [facility] Address [address] [place] [address] Phone Care Team Providers Care Pss Delivery Professional Name Role Phone Royal Hill MD Primary Care Provider [phone] Allergies Active Allergy Reactions Criticality Noted Date [...] by mouth 1 (one) time each day. 4 Active tafluprost, PF, 0.0015 % dropperette Administer 1 drop into both eyes at bedtime. at bedtime 5 Active Active Problems Problem Noted Date Diagnosed Date Preseptal cellulitis of left eye 09/05/2024 Surgical History Surgery Date Site/Laterality Comments COLONOSCOPY Medical History Medical History Date Comments CVA (cerebral vascular accident) (CMS/HCC V24, C MS/HCC V28) 2009 left sided deficit Hypertension Glaucoma Social [...] 103 09/08/2024 7:54 AM EDT Temperature 36.9 C (98.4 F) 09/08/2024 7:54 AM EDT Respiratory Rate 20 09/08/2024 7:54 AM EDT [...] Zoster Vaccines (2 of 2) 11/21/2023 09/26/2023 Depression Screening 06/30/2024 Cholesterol Screening (Lipid Panel) 09/04/2024 05/18/2018 Colorectal Cancer Screening: Colonoscopy 09/04/2024 Medicare Annual Wellness Visit 09/04/2024 Social Influencers of Health Screening 09/04/2024 COVID-19 Vaccine ( season) 2024 04/19/2024, 03/28/2024, 05/23/2023, Additional history exists Influenza Vaccine (#1) 2025 , 03/28/2024, 05/23/2023, Additional history exists Hypertension/CHF/CAD Annual BMP Blood Test 09/05/2025 09/05/2024, 09/04/2024, 11/28/2023, Additional history exists Falls Risk Assessment 09/08/2025 09/08/2024 DTaP,Tdap,and Td Vaccines (4 - Td or Tdap) 03/13/2032 03/13/2022, 01/19/2018, 07/01/2005 Hepatitis C Screening Completed 08/06/2018 Pneumococcal Vaccine: 50+ Years Completed 05/23/2023, 10/04/2021, 08/06/2018, Additional history exists RSV Immunization Adult Patients Completed 07/11/2023, 04/18/2023 HIB Vaccines Aged Out No longer eligi [...] Procedure Name Priority Date/Time Associated Diagnosis Comments BASIC METABOLIC PANEL Routine 09/05/2024 5:59 AM EDT from Last 3 Months or Most Recently Relevant to Health Maintenance Results * (ABNORMAL) Basic metabolic panel (09/05/2024 5:59 AM EDT) Sodium 135 133 - 145 mmol/L LAB CHEMISTRY METHOD 09/05/2024 8:03 AM EDT [facility] Potassium 3.6 3.5 - 5.5 mmol/L LAB CHEMISTR[facility] Chloride 99 96 - 110 mmol/L LAB CHEMISTRY METHOD [facility]/05[facility]2024 [facility] CO2 31 21 - 32 mmol/L LAB CHEMISTRY METHOD [facility]/05[facility]2024 8[facility] Anion Gap 5 3 - 11 LAB CHEMISTRY METHOD 09/05/2024 8:03 AM [facility] Glucose 125(H) 70 - 100 mg/dL LAB CHEMISTRY METHOD 09/05/2024 8:03 AM [facility] BUN 24 5 - 25 mg/dL LAB CHEMISTRY METHOD 09/05/2024 8:03 AM [facility] Creatinine 1.12 0.70 - 1.30 mg/dL LAB CHEMISTRY METHOD 09/05/2024 8:03 AM [facility] eGFR 69 >=60 mL/min/1. 73m2 LAB CHEMISTRY METHOD 09/05/2024 8:03 AM [facility] Comment:Calculation based on the Chronic Kidney Disease Epidemiology Collaboration (CKD-EPI) equation refit without adjustment for race. BUN/Creatinine Ratio 21.4 LAB CHEMISTRY METHOD 09/05/2024 8:03 AM [facility] Calcium 9.2 8.5 - 10.5 mg/dL LAB CHEMISTRY METHOD 09/05/2024 8:03 AM [facility] Blood Venous blood specimen / Unknown Venipuncture / Unknown 09/05/2024 5:59 AM EDT 09/05/2024 7:20 AM EDT us Urban Moreau MD LAB BLOOD ORDERABLES Final Result [facility] [address] [place] [address], from Last 3 Months or Most Recently Relevant to Health Maintenance Additional Health Concerns Infection Onset Date Last [...] currently active code status orders. Care Teams Pss Delivery Professional Relationship Specialty Start Date End Date Royal Hill MD [address] [place] [address] PCP - General Internal Medicine 09/04/24
--- OUTSIDE RECORDS SUMMARY | 2025-02-18 11:03 | XMS_ITS | Patient Health Record ---
Author Organization [facility] Address [address] [place] [address] Care Team Providers Care Sociology Research Assistant Name Role Phone Jak Marley MD Primary Care Provider Leroy Song Unavailable [phone] Allergies Allergen (clinical drug ingredient) Drug/Non Drug Allergy documented on EMR Reaction Allergy Type Onset Date Status erythromycin Erythromycin Unknown Drug Allergy A ctive ciprofloxacin Cipro Unknown Drug Allergy Act adrián angiotensin-converting enzyme inhibitor (FN) alyse inhibitors (uncoded) Unknown Allergy Active Substance with beta adrenergic receptor antagonist mechanism of action (substance) beta blockers (uncoded) Unknown Allergy Active tetrahydrozoline eye drops (uncoded) Unknown Allergy Active gabapentin Gabapentin Unknown Drug Allergy Activ e Reason For Referral No Information Medications Medication SIG (Take, Route, Frequency, Duration) Notes Start Date End Date Status Diovan Active Aspirin 81 MG 1 tablet Orally Once a day Active Vitamin D3 Active Problems Problem Type SNOMED Code ICD Code Onset Dates Problem Status W/U Status Risk Notes Problem 753721441 Encounter for screening for malignant neoplasm of colon (Z12.11) Active confirmed Problem 479768766 History of adenomatous polyp of colon (Z86.010) Active confirmed Problem Screening for malignant neoplasm of rectum (804463334) Encounter for screening for malignant neoplasm of rectum (Z12.12) Active confirmed Problem 63877838 Preprocedural examination (Z01.818) Active confirmed Problem 947804884 Long-term use of aspirin therapy (Z79.82) Active confirmed Plan Of Treatment Pending Test Test Name Order Date GI BIOPSY 12/13/2015 Future Test Test Name Order Date COLONOSCOPY 10/12/2015 Insurance Providers Payer Name Payer Address Payer Phone Subscriber Number Group Number Insured Name Patient Relationship to Insured Coverage Start Date Coverage End Date [facility] [address] [place], [place] [phone] [id number] ANGELIQUE BURNETTE Self - patient is the insured Medical (General) History Medical History History ICD Code Negative colonoscopy in 2000 ; Colonoscopy 10-24-2010--tubular adenomas removed, diverticulosis, internal hemorrhoids HTN Denies DM,CVA,Lung disease,renal disease Cerebrovascular disease with stroke June 2008;he describes that this was some type of brain injury at the base of the skull which left him with a left facial droop and right-sided weakness,as well as some nerve damage Depression 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
--- OUTSIDE RECORDS SUMMARY | 2025-02-18 11:03 | XMS_ITS | Clinical Summary ---
Author Organization [facility] Address [address] [facility] [address] [place] [address] Phone Care Team Providers Care Gallery Host Name Role Phone Jak Marley MD Unavailable [phone] Pcp, Unknown Primary Care Provider Unavailabl e Allergies Active Allergy Reactions Criticality Noted Date Comments Aspirin Musculoskeletal Pain 08/07/2018 Muscle spasms Cashew Nut 08/07/2018 Citalopram 08/07/2018 Doxycycline Hyclate Other (See Comments) 2017 Vision problems and head felt funny Erythromycin Swelling 08/07/2018 Swelling and rash Gabapentin 08/07/2018 Mouth swelling Ibuprofen 08/07/2018 welts Lisinopril Angioedema 08/07/2018 Pneumoc 13-Sade Conj-Dip Cr(Pf) 08/07/2018 Muscle pain, joint pain Fluoxetine 08/07/2018 Muscle stiff Medications CARBOXYMETHYLCE LLULOS/GLYCERIN (REFRESH OPTIVE OPHT) as directed Ophthalmic as needed Active cholecalciferol , vitamin D3, 1,000 unit capsule Take 1 capsule by mouth daily. Active Medication-Free Text Spacer/Aero Chamber Mouthpiece - Miscellaneous, Sig: as directed 7 Active albuterol (PROAIR HFA) 90 mcg/actuation inhaler Inhale 2 puffs into the lungs every 4 (four) hours as needed. 7 Active PEG 400-propylene glycol, PF, (SYSTANE ULTRA) 0.4-0.3 % Dpet Place 1 drop into each eye every hour as needed. 9 Active valsartan (DIOVAN) 160 MG tablet Take 1.5 tablets (240 mg total) by mouth daily. 90 tablet 3 0 Active Active Problems Problem Noted Date Diagnosed Date Hyperlipidemia 08/06/2018 Immunizations Immunization Administration Dates Next Due COVID-19 (Pre-04/21) Moderna Vaccine, mRNA, PF 10/14/2020,09/16/2020 INFLUENZA, SPLIT VIRUS, TRIVALENT PF 07/27/2015 INFLUENZA, SPLIT VIRUS, TRIV ALENT W/ PRESERVATIVE IM 04/15/2013,04/02/2009 Influenza High-Dose Trivalen t Preservative Free IM 04/27/2018,03/26/2017,04/01/2016,05/09 Influenza Quadrivalent Adjuv anted Preservative Free IM 03/29/2020 Influenza, Unspecified Formulation 04/12,04/11/2011,04/18/2010,12/01 Pneumococcal conjugate PCV13 07/27/2015,12/14/19 15 Pneumococcal polysaccharide PPSV23 08/06/2018, Td, unspecified formulation 07/01/2005 Tdap 01/19/2018 Social History Tobacco Use Types Packs/Day Years Used Date Smoking Tobacco: Former Cigarettes 1 25 1 982 - 2006 Smokeless Tobacco: Never Alcohol Use Standard Drinks/Week Comments Yes 1 (1 standard drink = 0.6 oz pur e alcohol) Education Answer Date Recorded Are you interested in more education? Not on maury e 10/25/2022 Are you concerned about learning? Not on file 10/25/2022 No 10/25/2022 No 10/25/2022 Digital Access Answer Date Recorded No 11/25/2022 No 11/25/2022 Reliable internet access at home? Not on file 11/25/2022 Device with a working camera? Not on file Sex and Gender Information Value Date Recorded Sex Assigned at Not on file Legal Sex Male 10:03 PM EDT Gender Identity Not on file Sexual Orientation Not on file Last Filed Vital Signs Vital Sign Reading Time Taken Comments Blood Pressure 132/76 08/06/2018 8:52 AM EST Pulse 96 08/06/2018 8:52 AM EST Temperature 36.8 C (98.3 F) 08/06/2018 8:52 AM EST Respiratory Rate 16 04/08/2017 9:40 AM EDT Oxygen Saturation 94% 08/06/2018 8:52 AM EST Inhaled Oxygen Concentration - - Weight 107.5 kg (237 lb) 08/06/2018 8:52 AM EST Height 180.3 cm (5' 10.98 ) 08/06/2018 8:[address] Body Mass Index 33.07 08/06/2018 8:52 AM EST Plan of Treatment Health Maintenance Due Date Last Done Comments SMOKING Hx and SMOKELESS TOBACCO SCREENING 1962 COLOGUARD 1994 FIT TEST 1994 FOBT 1994 SIGMOIDOSCOPY 1994 VIRTUAL COLONOSCOPY 1994 ZOSTER VACCINES (1 of 2) 1999 DEPRESSION SCREENING 08/06/2019 08/06/2018 LIPID PANEL 05/18/2023 05/18/2018, 08/29, 12/14/2015 COVID-19 VACCINE ( season) 2024 10/14/2020, 09/16/2020 RSV VACCINE (1 - 1-dose 75+ series) 2024 CREATININE LEVEL 12/02/2024 12/03/2023, , 08/06/2018, Additional history exists POTASSIUM LEVEL 12/02/2024 12/03/2023, 10/30, 08/06/2018, Additional history exists COLONOSCOPY 12/12/2025 12/13/2015 COLORECTAL CANCER SCREENING 12/12/2025 Adult Td,Tdap Booster 01/20/2028 01/19/2018, 006 HEPATITIS C SCREENING Completed 08/06/2018 HEPATITIS A VACCINES Aged Out No long er eligible based on patient's age to complete this topic HIB VACCINES Aged Out No longer eligi ble based on patient's age to complete this topic MENINGOCOCCAL VACCINES (ACWY) Aged Out No longer eligible based on patient's age to complete this topic MENINGOCOCCAL VACCINES (B) Aged Out N o longer eligible based on patient's age to complete this topic Medical Devices Not on file Procedures Procedure Name Priority Date/Time Associated Diagnosis Comments BASIC METABOLIC PANEL Routine 12/03/2023 7:46 AM EDT Hyperlipidemia, unspecified hyperlipidemia type HEPATITIS C ANTIBODY, QUALITATIVE Routine 08/06/2018 10:11 AM EST Liver function abnormality LIPID PANEL Routine 05/18/2018 10:51 AM EST Pure hypercholesterolemia from Last 3 Months or Most Recently Relevant to Health Maintenance Results * (ABNORMAL) Basic metabolic panel (12/03/2023 7:46 AM EDT) SODIUM 135 133 - 146 mmol/L [facility] CHLORIDE 96 96 - 108 mmol/L [facility] POTASSIUM 4.7 3.3 - 5.1 mmol/L [facility] CO2 26 21 - 35 mmol/L [facility] BUN 23(H) 6 - 19 mg/dL [facility] CREATININE 1.10 0.5 - 1.5 mg/dL [facility] GLUCOSE 171(H) 70 - 99 mg/dL [facility] CALCIUM 9.3 8.4 - 10.3 mg/dL [facility] EGFR 70 >59 mL/min/1.7 3m2 [facility] Comment:Estimated glomerular filtration rate calculated using the CKD-EPI refit equation. ANION GAP 18 10 - 20 mmol/L [facility] 12/03/2023 7:46 AM EDT 12/03/2023 10:26 AM EDT us Camille MEJÍA LAB BLOOD ORDERABLES Final Resu lt Performing Organization Address [facility] Co de Phone Number [address] [address] * Hepatitis C antibody, qualitative (08/06/2018 10:11 AM EST) HCV Negative Negative [facility] Comment: This is a screening test and should be confirmed with molecular testing Blood 08/06/2018 10:1 1 AM EST 08/06/2018 10:21 AM EST us Jak Marley MD LAB BLOOD ORDERABLES Final Re sult Performing Organization Address City/[facility]/ZIP Co de Phone Number [address] [address] * (ABNORMAL) Lipid panel (05/18/2018 10:51 AM EST) HDL 36 mg/dL [facility] Comment: Interpretation <40 mg/dL: Low HDL cholesterol (major risk factor for CHD) Greater than or equal to 60 mg/dL: High HDL cholesterol ( negative risk factor for CHD) HDL - cholesterol is affected by a number of factors, e.g. smoking, excerise, hormones, sex and age. CHOLESTEROL 193 0 - 240 mg/dL [facility] TRIGLYCERIDES 157 30 - 160 mg/dL [facility] LDL 126 50 - 129 mg/dL [facility] Comment: LDL levels in terms of risk for coronary heart disease: <100 mg/dL: Optimal 100-129 mg/dL: Near or above optimal 130-159 mg/dL: Borderline high 160-189 mg/dL: High >190 mg/dL: Very High CARDIAC RISK RATIO 5.4(H) 3.4 - 5.0 C [facility] Blood 05/18/2018 10:5 1 AM EST 05/18/2018 10:56 AM EST us Jak Marley MD LAB BLOOD ORDERABLES Final Re sult [facility] [address] [place] [address] from Last 3 Months or Most Recently Relevant to Health Maintenance Insurance [employer] [employer] [place] BL[place] [place] BL[place] RE[place] [facility] MEDICARE PPO BLUE REPLACEMENT [facility] MEDICARE PPO BLUE REPLACEMENT [facility] MEDICARE PPO BLUE REPLACEMENT [facility] MEDICARE PPO BLUE REPLACEMENT Care Teams Gallery Host Relationship Specialty Start Date End Date Pcp, Unknown PCP - General 01/22/22 Jak Marley MD [address] [place] [id number] [email or web address] Historical LMR Provider 04/19/17 Additional Source Comments The information contained in this document represents components of the legal health record. It is not the complete legal health record.[facility]
[2025-02-18 11:10] VITALS: BP 135/80; PULSE 72; BMI 27.1
== END 2025-02-18 12:01 | disposition home or self-care (01) ==
LOC: HO.HGS 10:58
PROVIDERS: PCP Internal Medicine
DX: K42.9 Umbilical hernia without obstruction or gangrene (principal)
CPT/HCPCS: 99204

== ENCOUNTER → 2025-02-18 10:57 | Outpatient (BNVA) | payer MEDICARE, SELFPAY | PROVIDERS: PCP Internal Medicine | DX: K42.9 Umbilical hernia without obstruction or gangrene (principal) | CPT/HCPCS: 99202 ==

== ENCOUNTER 2025-03-24 07:15 | Day surgery (SDC) | payer MEDICARE, SELFPAY ==
--- OUTSIDE RECORDS SUMMARY | 2025-03-11 17:14 | XMS_ITS | Clinical Summary ---
Author Organization [facility] Address [address] [place] [address] Phone Care Team Providers Care Orange Picking Supervisor Name Role Phone Royal Hill MD Primary Care Provider [phone] Allergies Active Allergy Reactions Criticality Noted Date [...] Health Screening 09/04/2024 COVID-19 Vaccine ( season) 2025 04/19/2024, 03/28/2024, 05/23/2023, Additional history exists Influenza [...] LAB CHEMISTRY METHOD 09/05/2024 8:03 AM EDT [facility] Potassium 3.6 3.5 - 5.5 mmol/L LAB CHEMISTRY METHOD [facility]/05[facility]24 [facility] Chloride 99 96 - 110 mmol/L LAB CHEMISTRY METHOD 09/05/2024 8:03 AM [facility] CO2 31 21 - 32 mmol/L LAB CHEMISTRY METHOD 09/05/2024 8:03 AM [facility] Anion Gap 5 3 - 11 LAB CHEMISTRY METHOD 09/05/2024 8:03 AM [facility] Glucose 125(H) 70 - 100 mg/dL LAB CHEMISTRY METHOD 09/05/2024 8:03 AM [facility] BUN 24 5 - 25 mg/dL LAB CHEMISTRY METHOD 09/05/2024 8:03 AM [facility] Creatinine 1.12 0.70 - 1.30 mg/dL LAB CHEMISTRY METHOD 09/05/2024 8:03 AM [facility] eGFR 69 >=60 mL/min/1. 73m2 LAB CHEMISTRY METHOD 09/05/2024 8:03 AM [facility] Comment:Calculation based on the Chronic Kidney Disease Epidemiology Collaboration (CKD-EPI) equation refit without adjustment for race. BUN/Creatinine Ratio 21.4 LAB CHEMISTRY METHOD 09/05/2024 8:03 AM [facility] Calcium 9.2 8.5 - 10.5 mg/dL LAB CHEMISTRY METHOD 09/05/2024 8:03 AM [facility] Blood Venous blood specimen / Unknown Venipuncture / Unknown 09/05/2024 5:59 AM EDT 09/05/2024 7:20 AM EDT us Urban Moreau MD LAB BLOOD ORDERABLES Final Result [facility] [address] [place] [address], from Last 3 Months or Most Recently [...] currently active code status orders. Care Teams Orange Picking Supervisor Relationship Specialty Start Date End Date Royal Hill MD [address] [place] [address] PCP - General Internal Medicine 09/04/24
--- OUTSIDE RECORDS SUMMARY | 2025-03-11 17:14 | XMS_ITS | Patient Health Record ---
Author Organization [facility] Address [address] [place] [address] Care Team Providers Care Uat Tester Name Role Phone Jak Marley MD Primary Care Provider Leroy Song Unavailable [phone] Allergies Allergen (clinical drug ingredient) Drug/Non Drug [...] Problem Status W/U Status Risk Notes Problem 340702882 Encounter for screening for malignant neoplasm of colon (Z12.11) Active confirmed Problem 475869333 History of adenomatous polyp of colon (Z86.010) Active confirmed Problem Screening for malignant neoplasm of rectum (640783736) Encounter for screening for malignant neoplasm of rectum (Z12.12) Active confirmed Problem 81883595 Preprocedural examination (Z01.818) Active confirmed Problem 983595781 Long-term use of aspirin therapy (Z79.82) Active confirmed Plan Of Treatment Pending Test Test Name Order Date GI BIOPSY 12/13/2015 Future Test Test Name Order Date COLONOSCOPY 10/12/2015 Insurance Providers Payer Name Payer Address Payer Phone Subscriber Number Group Number Insured Name Patient Relationship to Insured Coverage Start Date Coverage End Date [facility] [address] [place], [place] [id number] [phone] [id number] ANGELIQUE BURNETTE Self - patient is [...]
--- OUTSIDE RECORDS SUMMARY | 2025-03-11 17:14 | XMS_ITS | Clinical Summary ---
Author Organization [facility] Address [address] [address] Care Team Providers Care Production Estimator Name Role Phone Unavailable Primary Care Provider [...]
--- OUTSIDE RECORDS SUMMARY | 2025-03-11 17:14 | XMS_ITS | Clinical Summary ---
Author Organization [facility] Address [address] [facility] [address] [place] [address] Phone Care Team Providers Care Homemaking Rehabilitation Consultant Name Role Phone Jak Marley MD Unavailable [phone] Pcp, Unknown Primary Care Provider Unavailabl e [...] 08/06/2018 LIPID PANEL 05/18/2023 05/18/2018, 08/29, 12/14/2015 RSV VACCINE (1 - 1-dose 75+ series) 2024 CREATININE LEVEL 12/02/2024 12/03/2023, , 08/06/2018, Additional history exists POTASSIUM LEVEL 12/02/2024 12/03/2023, 10/30, 08/06/2018, Additional history exists INFLUENZA VACCINE (#1) 2025 , 04/12/2019, 04/27/2018, Additional history exists COVID-19 VACCINE ( season) 2025 10/14/2020, 09/16/2020 COLONOSCOPY 12/12/2025 12/13/2015 COLORECTAL CANCER SCREENING 12/12/2025 [...] EDT) SODIUM 135 133 - 146 mmol/L [facility] CHLORIDE 96 96 - 108 mmol/L [facility] POTASSIUM 4.7 3.3 - 5.1 mmol/L [facility] CO2 26 21 - 35 mmol/L [facility] BUN 23(H) 6 - 19 mg/dL [facility] CREATININE 1.10 0.5 - 1.5 mg/dL [facility] GLUCOSE 171(H) 70 - 99 mg/dL [facility] CALCIUM 9.3 8.4 - 10.3 mg/dL [facility] EGFR 70 >59 mL/min/1.7 3m2 [facility] Comment:Estimated glomerular filtration rate calculated using the CKD-EPI refit equation. ANION GAP 18 10 - 20 mmol/L [facility] 12/03/2023 7:46 AM EDT 12/03/2023 10:26 AM EDT us Camille MEJÍA LAB BLOOD ORDERABLES Final Resu lt Performing Organization Address City/State/[facility] Co de Phone Number [address] [address] * Hepatitis C antibody, qualitative (08/06/2018 10:11 AM EST) HCV Negative Negative [facility] Comment: This is a screening test and should be confirmed with molecular testing Blood 08/06/2018 10:1 1 AM EST 08/06/2018 10:21 AM EST us Jak Marley MD LAB BLOOD ORDERABLES Final Re sult Performing Organization Address City/[facility] Co de Phone Number [address] [address] * (ABNORMAL) Lipid panel (05/18/2018 10:51 AM EST) HDL 36 mg/dL [facility] Comment: Interpretation <40 mg/dL: Low HDL cholesterol (major risk factor for CHD) Greater than or equal to 60 mg/dL: High HDL cholesterol ( negative risk factor for CHD) HDL - cholesterol is affected by a number of factors, e.g. smoking, excerise, hormones, sex and age. CHOLESTEROL 193 0 - 240 mg/dL [facility] TRIGLYCERIDES 157 30 - 160 mg/dL [facility] LDL 126 50 - 129 mg/dL [facility] Comment: LDL levels in terms of risk for coronary heart disease: <100 mg/dL: Optimal 100-129 mg/dL: Near or above optimal 130-159 mg/dL: Borderline high 160-189 mg/dL: High >190 mg/dL: Very High CARDIAC RISK RATIO 5.4(H) 3.4 - 5.0 C [facility] Blood 05/18/2018 10:5 1 AM EST 05/18/2018 10:56 AM EST us Jak Marley MD LAB BLOOD ORDERABLES Final [facility] Performing Organization Address [facility] Co de Phone Number [address] [address] from Last 3 Months or Most Recently Relevant to Health Maintenance [place] BLUE REPLACEMENT [facility] MEDICARE PPO BLUE REPLACEMENT [facility] MEDICARE PPO BLUE REPLACEMENT [facility] MEDICARE PPO BLUE REPLACEMENT [facility] MEDICARE PPO BLUE REPLACEMENT [facility] MEDICARE PPO BLUE REPLACEMENT Care Teams Homemaking Rehabilitation Consultant Relationship Specialty Start Date End Date Pcp, Unknown PCP - General 01/22/22 Jak Marley MD [address] [place] [id number] [email or web address] Historical LMR Provider 04/19/17 Additional Source Comments The information contained in this document represents components of the legal health record. It is not the complete legal health record.[facility]
[2025-03-22 09:07] VITALS: BMI 27.1
[2025-03-24] VITALS (8 sets, daily range): BP systolic 127–138; BP diastolic 77–100; PULSE 74–86; RESP 14–16; TEMP 36.2–37; O2SAT 93–99; BMI 27.5
--- NOTE | 2025-03-24 08:12 | MHC.SHP ---
Pre-Procedural Eval Section A - 24 Hr Update-Section A only Date of Service: 03/24/25 The patient is an INPATIENT: No Changes since office visit: Yes Patient answered all questions; No Cold of Flu in the past 2 weeks, No New Medical Problems and No Changes in Medication The patient has been examined within 24 hours of the surgical procedure. The History & Physical has been completed within 30 days and I have reviewed it.: No Section B - Complete if H&P > 30 days Chief Complaint: Umbilical hernia without obstruction or gangrene Details of Present Illness: Patient reports no abdominal pain at this time, hernia has remained reduced and has been generally asymptomatic. Relevant Family History (Specify if Yes): No Relevant Social History: None Present Medications: see Short Stay Collaborative assessment Medical History: Significant History (CVA, right-sided weakness, enlarged prostate) History of Previous Operations: No relevant previous surgery Allergies: Allergies Allergy/AdvReac Type Severity Reaction Status Date / Time KAY Inhibitors (KAY Allergy Severe SWELLING Verified 03/24/25 07:58 INHIBITORS) ciprofloxacin (CIPROFLOXACIN) Allergy Severe SWELLING Verified 03/24/25 07:58 gabapentin (GABAPENTIN) Allergy Severe ANAPHYLAXIS Verified 03/24/25 07:58 erythromycin base Allergy Intermediate SHORTNESS Verified 03/24/25 07:58 (ERYTHROMYCIN BASE) OF BREATH ibuprofen (From MOTRIN) Allergy Intermediate HIVES Verified 03/24/25 07:58 amlodipine (From Norvasc) Allergy Rash Verified 03/24/25 07:58 atenolol Allergy Swelling Verified 03/24/25 07:58 carvedilol Allergy Unknown Verified 03/24/25 07:58 citalopram Allergy Unknown Verified 03/24/25 07:58 doxazosin (From Cardura) Allergy Numbness Verified 03/24/25 07:58 finasteride Allergy Depression Verified 03/24/25 07:58 tamsulosin Allergy Depression Verified 03/24/25 07:58 SERATONIN Allergy Severe SERATONIN Uncoded 03/24/25 07:58 SYNDROME Review of Systems Sugical H&P ROS: Negative: Constitution, Cardiovascular, Respiratory, Psychiatric, Hem-Onc, Allergic/Immunologic, Genitourinary, Musculoskeletal and Integumentary and Yes, Specify: Neurological (Previous CVA as noted above) and Gastrointestinal (Umbilical hernia, reducible) Exam Surgical H&P Exam: Normal: HEENT, Normal: Heart, Normal: Lungs, Normal: Extremities and Normal: Skin and Significant Findings: Abdomen (2 cm umbilical hernia, reducible) and Significant Findings: Neurological (CVA right-sided weakness) Plan Diagnosis/Plan: Unchanged I have reviewed the history and physical and performed a pertinent physical examination on my patient. No changes have occurred unless specified. I reviewed the procedure, risks, and alternatives in detail with the patient and he consents to repair of the umbilical hernia with mesh. We discussed postoperative management including no lifting greater than 10 lb for the 1st month. He may take Colace as needed for constipation. There are no restrictions to his diet. He will follow up in the office in approximately 1 week. Time Spent With Patient Time: Total time managing care of this patient today ____ minutes.
[2025-03-24] MEDS: Lactated Ringers 1,000 ML 100 ML IVCONT (08:14)
--- NOTE | 2025-03-24 08:35 | HO.ANESPROP2 ---
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 [facility] Active Problems Active Problems: All Active Problems (Updated 03/22/25 @ 09:27 by Maritza Jett RN) History of stroke (Acute) Preop testing (Acute) BPH loc w urin obs/LUTS (Acute) Incomplete bladder emptying (Acute) Enlarged prostate (Acute) Prostatic cyst (Acute) Recurrent falls (Acute) Past Medical History Medical History Urinary incontinence Urinary retention Hemorrhagic stroke Unilateral hearing loss Tinea cruris Prostatic abscess Panic disorder Depression Hypercholesteremia Hypercalcemia BPH (benign prostatic hyperplasia) Hepatomegaly Glucose intolerance Glaucoma Anxiety Abnormal liver function test Sleep apnea Hx of benign neoplasm Cataracts, bilateral Weakness Urinary tract infection Sepsis Hypertension Family History Family History (Updated 02/18/25 @ 11:10 by COURTNEY Sarkar) Sister Breast CA Surgical History Surgical History History of eyelid surgery Hx of tonsillectomy H/O colonoscopy Social History Social History Household Members: Family Housing: House Are you a primary memory care program director to a significant other at home: No Do you presently have visiting nurse or other home services: No Patient Tobacco Use Status: Never used Tobacco Use of substances other than those prescribed or required for medical reasons: No Have you been hit, kicked, punched, or otherwise hurt by someone within the past year? If so, by whom?: No Are you DNR?: No Advance Directives: No Advance Directives Information Provided: Yes Advance Directives Date on File: 11/28/23 Poor oral hygiene: Yes service: Yes Meds Allergies Allergy/AdvReac Type Severity Reaction Status Date / Time KAY Inhibitors (KAY Allergy Severe SWELLING Verified 03/24/25 07:58 INHIBITORS) ciprofloxacin (CIPROFLOXACIN) Allergy Severe SWELLING Verified 03/24/25 07:58 gabapentin (GABAPENTIN) Allergy Severe ANAPHYLAXIS Verified 03/24/25 07:58 erythromycin base Allergy Intermediate SHORTNESS Verified 03/24/25 07:58 (ERYTHROMYCIN BASE) OF BREATH ibuprofen (From MOTRIN) Allergy Intermediate HIVES Verified 03/24/25 07:58 amlodipine (From Norvasc) Allergy Rash Verified 03/24/25 07:58 atenolol Allergy Swelling Verified 03/24/25 07:58 carvedilol Allergy Unknown Verified 03/24/25 07:58 citalopram Allergy Unknown Verified 03/24/25 07:58 doxazosin (From Cardura) Allergy Numbness Verified 03/24/25 07:58 finasteride Allergy Depression Verified 03/24/25 07:58 tamsulosin Allergy Depression Verified 03/24/25 07:58 SERATONIN Allergy Severe SERATONIN Uncoded 03/24/25 07:58 SYNDROME Home Medications ?Medication ?Instructions ?Recorded ?Confirmed ?Last Taken ?Type cholecalciferol (vitamin D3) 25 25 mcg PO QAM 11/21/23 03/22/25 11/21/23 History mcg (1,000 unit) tablet (Vitamin D3) valsartan 160 mg tablet 160 mg PO QAM 11/21/23 03/22/25 11/21/23 History tafluprost (PF) 0.0015 % eye drops 1 drp ophthalmic (eye) BEDTIME 06/04/24 03/22/25 Unknown History in a dropperette Exam Height,Weight and Vital Signs: Height 5 ft 11 in Weight 87.997 kg Pertinent Lab Results Pertinent Lab Results: Laboratory Tests 02/16/25 19:57 WBC 8.2 Hgb 16.8 Hct 49.1 Plt Count 177 D Sodium 140 Potassium 4.0 Chloride 105 Carbon Dioxide 25 BUN 20 H Creatinine 1.13 Narrative Narrative: EKG 02/2025 Ventricular Rate: 80 BPM Atrial Rate: 80 BPM P-R Interval: 150 ms QRS Duration: 100 ms Q-T Interval: 362 ms QTC Calculation(Bazett): 417 ms P Cecilia: 101 degrees R Cecilia: -74 degrees T Cecilia: 35 degrees Normal sinus rhythm Left anterior fascicular block Abnormal ECG When compared with ECG of 24-Sep-2024 12:40, No significant change was found Confirmed by Royal Harris ([id number]) on 03/10/2025 12:09:27 PM Assessment and Plan Assessment Anesthesia Assessment: Chart Reviewed Documented by User: Nkechi Hanson DO 03/24/25 08:47 PMFSH Past Medical History Medical History Urinary incontinence Urinary retention Hemorrhagic stroke Unilateral hearing loss Tinea cruris Prostatic abscess Panic disorder Depression Hypercholesteremia Hypercalcemia BPH (benign prostatic hyperplasia) Hepatomegaly Glucose intolerance Glaucoma Anxiety Abnormal liver function test Sleep apnea Hx of benign neoplasm Cataracts, bilateral Weakness Urinary tract infection Sepsis Hypertension Family History Family History (Updated 02/18/25 @ 11:10 by COURTNEY Sarkar) Sister Breast CA Family history of problems with anesthesia: No Surgical History Surgical History History of eyelid surgery Hx of tonsillectomy H/O colonoscopy History of Problems with Anesthesia: No Social History Social History Household Members: Family Housing: House Are you a primary memory care program director to a significant other at home: No Do you presently have visiting nurse or other home services: No Patient Tobacco Use Status: Never used Tobacco Use of substances other than those prescribed or required for medical reasons: No Have you been hit, kicked, punched, or otherwise hurt by someone within the past year? If so, by whom?: No Are you DNR?: No Advance Directives: No Advance Directives Information Provided: Yes Advance Directives Date on File: 11/28/23 Poor oral hygiene: Yes service: Yes Meds Allergies Allergy/AdvReac Type Severity Reaction Status Date / Time KAY Inhibitors (KAY Allergy Severe SWELLING Verified 03/24/25 07:58 INHIBITORS) ciprofloxacin (CIPROFLOXACIN) Allergy Severe SWELLING Verified 03/24/25 07:58 gabapentin (GABAPENTIN) Allergy Severe ANAPHYLAXIS Verified 03/24/25 07:58 erythromycin base Allergy Intermediate SHORTNESS Verified 03/24/25 07:58 (ERYTHROMYCIN BASE) OF BREATH ibuprofen (From MOTRIN) Allergy Intermediate HIVES Verified 03/24/25 07:58 amlodipine (From Norvasc) Allergy Rash Verified 03/24/25 07:58 atenolol Allergy Swelling Verified 03/24/25 07:58 carvedilol Allergy Unknown Verified 03/24/25 07:58 citalopram Allergy Unknown Verified 03/24/25 07:58 doxazosin (From Cardura) Allergy Numbness Verified 03/24/25 07:58 finasteride Allergy Depression Verified 03/24/25 07:58 tamsulosin Allergy Depression Verified 03/24/25 07:58 SERATONIN Allergy Severe SERATONIN Uncoded 03/24/25 07:58 SYNDROME Home Medications ?Medication ?Instructions ?Recorded ?Confirmed ?Last Taken ?Type cholecalciferol (vitamin D3) 25 25 mcg PO QAM 11/21/23 03/22/25 11/21/23 History mcg (1,000 unit) tablet (Vitamin D3) valsartan 160 mg tablet 160 mg PO QAM 11/21/23 03/22/25 11/21/23 History tafluprost (PF) 0.0015 % eye drops 1 drp ophthalmic (eye) BEDTIME 06/04/24 03/22/25 Unknown History in a dropperette Exam Exam Date and Time: 03/24/25 0845 Height,Weight and Vital Signs: Height 5 ft 11 in Weight 87.997 kg Vital Signs Temperature 98.6 F 03/24/25 08:06 Pulse Rate 86 03/24/25 08:06 Respiratory Rate 14 03/24/25 08:06 Blood Pressure 131/100 H 03/24/25 08:06 Pulse Oximetry 97 03/24/25 08:06 Oxygen Delivery Method Room Air 03/24/25 08:06 Temperature 98.6 F 03/24/25 08:06 Pulse Rate 86 03/24/25 08:06 Respiratory Rate 14 03/24/25 08:06 Blood Pressure 131/100 H 03/24/25 08:06 Pulse Oximetry 97 03/24/25 08:06 Oxygen Delivery Method Room Air 03/24/25 08:06 Airway Mallampati Class: III TM Dist: <=3cm Neck ROM: Limited Loose/Missing/Broken Teeth: Yes (edentulous on top jaw; only 2 remaining teeth on bottom jaw) Heart: S1S2 Lungs: CTAB Assessment and Plan Assessment Anesthesia Assessment: Anesthesia Plan Discussed and Chart Reviewed Final Anesthetic Review Family History of Problems with Anesthesia: No History of Problems with Anesthesia: No NPO: Yes ASA Class: III Final Preanesthetic Review: No Changes in Pt Med Stat, Meds/Allgs Chart Reviewed, Consent Obtained/Reviewed and Anes Risks/Benef Reviewed Patient Risk: Intermediate Procedure Risk: Low Anesthetic Plan Anesthetic Plan: GA and Agree w/ Assess. and Plan Disposition: Standard PACU
--- NOTE | 2025-03-24 09:07 | W.PM.OPN ---
Operative Note Operative Note Date of Service: 03/24/25 Narrative: Preoperative diagnosis: Umbilical hernia, reducible Postoperative diagnosis: Same Procedure: Repair of reducible umbilical hernia with mesh, 2 cm Surgeon: Dago Bal MD Button Bradder: Nickie Cowart PA-C; Ronny Agarwal PA-C, NELIA Cowart Anesthesia: General LMA Indications for procedure: 74-year-old male patient presenting with a previous history of an incarcerated umbilical hernia reduces in the emergency department presenting now for repair of his umbilical hernia with mesh. Operative findings: 2 cm reducible umbilical hernia containing preperitoneal fat Specimen: None Estimated blood loss: Less than 2 mL Complications: None Procedure details: Patient was brought to the OR and placed in a supine position. After administering general anesthesia the patient's abdomen was prepped with ChloraPrep and draped in a sterile fashion. A surgical time-out was called the consent confirmed. Patient received preoperative antibiotics and Venodyne boots were in place. Local anesthesia consisting of 0.5% Sensorcaine with epinephrine was infiltrated over the umbilical hernia. A transverse incision was created in a curvilinear fashion over the umbilical hernia. This was carried out through subcutaneous tissue and up to the hernia sac. The hernia sac was then dissected circumferentially. This was located at the superior surface of the umbilicus. Fascial defect was clearly defined and a preperitoneal space created. A 4.3 cm round Ventralex mesh was then obtained. This was deployed within the preperitoneal space and secured in 4 quadrants using a 1 Tycron suture. Fascia was then closed over the mesh using [id number] 1 Tycron sutures. Wounds were then irrigated with saline solution and suctioned dry. Wounds were checked for hemostasis. Additional local was infiltrated in the subcutaneous tissue. Dermis was then reapproximated using interrupted 3-0 Polysorb sutures. Skin was closed using a running subcuticular 4-0 Polysorb suture. Steri-Strips, 4 x 4 gauze and Tegaderm were then applied. The patient tolerated the procedure well. Sponge, instrument, and needle counts reported as correct. The patient was transferred to PACU in stable condition.
== END 2025-03-24 10:55 | disposition home or self-care (01) ==
PROVIDERS: PCP Internal Medicine; Visit Provider Surgery
PROC: (CPT 49613; principal; 2025-03-24 08:40)
DX: K42.9 Umbilical hernia without obstruction or gangrene (principal); I69.251 Hemiplegia and hemiparesis following other nontraumatic intracranial hemorrhage affecting right dominant side; Z99.3 Dependence on wheelchair; I10 Essential (primary) hypertension; R73.03 Prediabetes; G47.33 Obstructive sleep apnea (adult) (pediatric); Z79.899 Other long term (current) drug therapy; Z88.1 Allergy status to other antibiotic agents; Z88.6 Allergy status to analgesic agent; Z88.8 Allergy status to other drugs, medicaments and biological substances
CPT/HCPCS: 49613; C1781; J0131; J0690; J2003; J2405; J2704; J3010

== ENCOUNTER → 2025-03-24 07:15 | Outpatient (BNV) | payer MEDICARE, SELFPAY | PROVIDERS: PCP Internal Medicine; Visit Provider Surgery | DX: K42.9 Umbilical hernia without obstruction or gangrene (principal) | CPT/HCPCS: 49591 ==

== ENCOUNTER 2025-03-31 09:16 | Outpatient (AMB) | payer MEDICARE, SELFPAY ==
[2025-03-31 09:36] VITALS: BP 132/72; PULSE 68
--- NOTE | 2025-03-31 09:36 | MHC.OFFVIS ---
Vital Signs 03/31/25 09:36 Weight 195 lb BP 132/72 Blood Pressure Location Rt brachial Position Sitting Pulse 68 Intake Visit Reasons: s/p umbilical hernia w/ mesh Intake Note: Patient here s/p repair of reducible umbilical hernia with mesh, 2 cm. Patient c/o: bulge on lt abdomen side. Denies pain. Dressing, steri strips removed without incident. Only took rx pain med on first night. Surgery: () 03-24-2025 Treasury Consultant Required: No Accompanied by: Self / Same As Patient Allergies KAY Inhibitors (KAY INHIBITORS) Allergy (Severe, Verified 03/31/25 09:38) SWELLING ciprofloxacin (CIPROFLOXACIN) Allergy (Severe, Verified 03/31/25 09:38) SWELLING gabapentin (GABAPENTIN) Allergy (Severe, Verified 03/31/25 09:38) ANAPHYLAXIS erythromycin base (ERYTHROMYCIN BASE) Allergy (Intermediate, Verified 03/31/25 09:38) SHORTNESS OF BREATH ibuprofen (From MOTRIN) Allergy (Intermediate, Verified 03/31/25 09:38) HIVES amlodipine (From Norvasc) Allergy (Verified 03/31/25 09:38) Rash atenolol Allergy (Verified 03/31/25 09:38) Swelling carvedilol Allergy (Verified 03/31/25 09:38) Unknown citalopram Allergy (Verified 03/31/25 09:38) Unknown doxazosin (From Cardura) Allergy (Verified 03/31/25 09:38) Numbness finasteride Allergy (Verified 03/31/25 09:38) Depression tamsulosin Allergy (Verified 03/31/25 09:38) Depression SERATONIN Allergy (Severe, Uncoded 03/31/25 09:38) SERATONIN SYNDROME HPI HPI s/p umbilical hernia w/ mesh: Details: Mr. Schwartz is here for routine follow up. He underwent repair of reducible umbilical hernia with ventralex mesh, [address] Bal on 03/24/25. He tolerated the procedure well. He reports he didnt have much pain except for the day after surgery when he was awoken from sleep due to pain. He took one oxycodone tablet with improvement in the pain and didn't require any further narcotics. He has been eating well and moving his bowels normally. He was taking colace for a few days following the procedure but is no longer taking it. He does take fiber daily. He has no concerns. [facility] Medical History Urinary incontinence Urinary retention Hemorrhagic stroke Unilateral hearing loss Tinea cruris Prostatic abscess Panic disorder Depression Hypercholesteremia Hypercalcemia BPH (benign prostatic hyperplasia) Hepatomegaly Glucose intolerance Glaucoma Anxiety Abnormal liver function test Sleep apnea Hx of benign neoplasm Cataracts, bilateral Weakness Urinary tract infection Sepsis Hypertension Surgical History (Updated 03/31/25 @ 10:25 by Nickie Cowart PA-C) History of eyelid surgery Hx of tonsillectomy H/O colonoscopy Family History (Updated 02/18/25 @ 11:10 by COURTNEY Sarkar) Sister Breast CA Social History Household Members: Family Housing: House Are you a primary eye care professional to a significant other at home: No Do you presently have visiting nurse or other home services: No Patient Tobacco Use Status: Never used Tobacco Advance Directives Date on File: 11/28/23 service: Yes Review of Systems Const All systems reviewed & are unremarkable except as noted in HPI and below Physical Exam Vital Signs: Last Vital Signs Pulse 68 03/31/25 09:36 BP 132/72 03/31/25 09:36 Const General: comfortable, no acute distress and alert Orientation/consciousness: patient oriented x3 Resp Effort & Inspection: normal respiratory effort GI Other: incision is well healed without erythema, he does have moderate old appearing ecchymosis circumferentally surrounding the umbilical repair site, mild induration underlying the incision remainder of abdomen is protuberant but nondistended and soft Palpation (GI): Tenderness to palpation present (GI) (mild incisional) and no guarding Percussion: Yes normal to percussion Skin Other: except as noted above in GI General skin exam: no rashes or lesions noted Neuro General: patient oriented x3 and moves all extremities Assessment & Plan Assessment & Plan (1) S/P umbilical hernia repair, follow-up exam: Code(s): Z09 - Encounter for follow-up examination after completed treatment for conditions other than malignant neoplasm Category: Surgical Plan Mr. Schwartz is s/p repair of reducible umbilical hernia with ventralex mesh with Dr. Bal on 03/24/25. He tolerated the procedure well and has no concerns. He does have a moderate amount of ecchymosis surrounding the repair site which is old appearing with some mild induration. Incision well healed and clean appearing without evidence of infection. Given the extensive ecchymosis, he was asked to return in 2 weeks to ensure this has resolved. He is to continue lifting restrictions for another 5 weeks. He understands and agrees with plan, all questions answered. Coding Level of Care Code Est Pt Level 3 (08406) Diagnoses S/P umbilical hernia repair, follow-up exam Z09
--- OUTSIDE RECORDS SUMMARY | 2025-03-31 10:09 | XMS_ITS | Patient Health Record ---
Author Organization [facility] Address [address] [place] [address] Care Team Providers Care Pleater Name Role Phone Jak Marley MD Primary Care Provider Leroy Song Unavailable [phone] Allergies Allergen (clinical drug ingredient) Drug/Non Drug Allergy documented on EMR Reaction Allergy Type Onset Date Status ciprofloxacin Cipro Unknown Drug Allergy Act adrián angiotensin-converting enzyme inhibitor (FN) alyse inhibitors (uncoded) Unknown Allergy Active Substance with beta adrenergic receptor antagonist mechanism of action (substance) beta blockers (uncoded) Unknown Allergy Active tetrahydrozoline eye drops (uncoded) Unknown Allergy Active gabapentin Gabapentin Unknown Drug Allergy Activ e erythromycin Erythromycin Unknown Drug Allergy A ctive Reason For Referral No Information Medications Medication SIG (Take, Route, Frequency, Duration) Notes Start Date End Date Status Diovan Active Aspirin 81 MG 1 tablet Orally Once a day Active Vitamin D3 Active Problems Problem Type SNOMED Code ICD Code Onset Dates Problem Status W/U Status Risk Notes Problem 052999403 Encounter for screening for malignant neoplasm of colon (Z12.11) Active confirmed Problem 995314506 History of adenomatous polyp of colon (Z86.010) Active confirmed Problem Screening for malignant neoplasm of rectum (481608417) Encounter for screening for malignant neoplasm of rectum (Z12.12) Active confirmed Problem 96441024 Preprocedural examination (Z01.818) Active confirmed Problem 657730398 Long-term use of aspirin therapy (Z79.82) Active confirmed Plan Of Treatment Pending Test Test Name Order Date GI BIOPSY 12/13/2015 Future Test Test Name Order Date COLONOSCOPY 10/12/2015 Insurance Providers Payer Name Payer Address Payer Phone Subscriber Number Group Number Insured Name Patient Relationship to Insured Coverage Start Date Coverage End Date [facility] [address] [place], [place] [id number] [phone] [id number] ANGELIQUE BURNETTE Self - patient is [...]
--- OUTSIDE RECORDS SUMMARY | 2025-03-31 10:09 | XMS_ITS | Clinical Summary ---
Author Organization [facility] Facility Address [address] [address] Care Team Providers Care Program Director/Traffic Director Name Role Phone Unavailable Primary Care Provider [...]
--- OUTSIDE RECORDS SUMMARY | 2025-03-31 10:09 | XMS_ITS | Clinical Summary ---
Author Organization [facility] Address [address] [place] [address] Phone Care Team Providers Care Valuer Name Role Phone Royal Hill MD Primary Care Provider [phone] Allergies Active Allergy Reactions Criticality Noted Date [...] Safety Answer Date Record ed Physical Abuse Unrecognized value 09/05/2024 Verbal Abuse Unrecognized value 09/05/2024 Sex and Gender Information Value Date [...] mmol/L LAB CHEMISTRY METHOD [facility]05[facility]24 [facility] Potassium 3.6 3.5 - 5.5 mmol/L LAB CHEMISTRY METHOD 09/05/2024 8:03 AM [facility] Chloride 99 96 - 110 mmol/L LAB CHEMISTRY METHOD 09/05/2024 8:03 AM [facility] CO2 31 21 - 32 mmol/L LAB CHEMISTRY METHOD 09/05/2024 8:03 AM [facility] Anion Gap 5 3 - 11 LAB CHEMISTRY METHOD 09/05/2024 8:03 AM [facility] Glucose 125(H) 70 - 100 mg/dL LAB CHEMISTRY METHOD 09/05/2024 8:03 AM [facility] BUN 24 5 - 25 mg/dL LAB CHEMISTRY METHOD 09/05/2024 8:03 AM [facility] Creatinine 1.12 0.70 - 1.30 mg/dL LAB CHEMISTRY METHOD 09/05/2024 8:03 AM [facility] eGFR 69 >=60 mL/min/1. 73m2 LAB CHEMISTRY METHOD 09/05/2024 8:03 AM [facility] Comment:Calculation based on the Chronic Kidney Disease Epidemiology Collaboration (CKD-EPI) equation refit without adjustment for race. BUN/Creatinine Ratio 21.4 LAB CHEMISTRY METHOD 09/05/2024 8:03 AM [facility] Calcium 9.2 8.5 - 10.5 mg/dL LAB CHEMISTRY METHOD 09/05/2024 8:03 AM [facility] Blood Venous blood specimen / Unknown Venipuncture / Unknown 09/05/2024 5:59 AM EDT 09/05/2024 7:20 AM EDT Urban Moreau MD LAB BLOOD ORDERABLES Final Result [facility] [address] [place] [address], from Last 3 Months or Most Recently [...] currently active code status orders. Care Teams Valuer Relationship Specialty Start Date End Date Royal Hill MD [address] [place] [address] PCP - General Internal Medicine 09/04/24
--- OUTSIDE RECORDS SUMMARY | 2025-03-31 10:09 | XMS_ITS | Clinical Summary ---
Author Organization [facility] Address [address] [facility] [address] [place] [address] Phone Care Team Providers Care [employer] Agent Name Role Phone Jak Marley MD Unavailable [phone] Pcp, Unknown Primary Care Provider Unavailabl e [...] EDT) SODIUM 135 133 - 146 mmol/L [facility] CHLORIDE 96 96 - 108 mmol/L [facility] POTASSIUM 4.7 3.3 - 5.1 mmol/L [facility] CO2 26 21 - 35 mmol/L [facility] BUN 23(H) 6 - 19 mg/dL [facility] CREATININE 1.10 0.5 - 1.5 mg/dL [facility] GLUCOSE 171(H) 70 - 99 mg/dL [facility] CALCIUM 9.3 8.4 - 10.3 mg/dL [facility] EGFR 70 >59 mL/min/1.7 3m2 [facility] Comment:Estimated glomerular filtration rate calculated using the CKD-EPI refit equation. ANION GAP 18 10 - 20 mmol/L [facility] 12/03/2023 7:46 AM EDT 12/03/2023 10:26 AM EDT us Camille MEJÍA LAB BLOOD ORDERABLES Final Resu lt Performing Organization Address City/State/[facility] Co de Phone Number [address] [address] * Hepatitis C antibody, qualitative (08/06/2018 10:11 AM EST) HCV Negative Negative [facility] Comment: This is a screening test and should be confirmed with molecular testing Blood 08/06/2018 10:1 1 AM EST 08/06/2018 10:21 AM EST us Jak Marley MD LAB BLOOD ORDERABLES Final Re sult Performing Organization Address City/[facility] Co de Phone Number [address] [address] * (ABNORMAL) Lipid panel (05/18/2018 10:51 AM EST) HDL 36 mg/dL [facility] Comment: Interpretation <40 mg/dL: Low HDL cholesterol (major risk factor for CHD) Greater than or equal to 60 mg/dL: High HDL cholesterol ( negative risk factor for CHD) HDL - cholesterol is affected by a number of factors, e.g. smoking, excerise, hormones, sex and age. CHOLESTEROL 193 0 - 240 mg/dL [facility] TRIGLYCERIDES 157 30 - 160 mg/dL [facility] LDL 126 50 - 129 mg/dL [facility] Comment: LDL levels in terms of risk for coronary heart disease: <100 mg/dL: Optimal 100-129 mg/dL: Near or above optimal 130-159 mg/dL: Borderline high 160-189 mg/dL: High >190 mg/dL: Very High CARDIAC RISK RATIO 5.4(H) 3.4 - 5.0 C [facility] Blood 05/18/2018 10:5 1 AM EST 05/18/2018 10:56 AM EST us Jak Marley MD LAB BLOOD ORDERABLES Final [facility] Performing Organization Address [facility] Co de Phone Number [address] [address] from Last 3 Months or Most Recently Relevant to Health Maintenance Insurance [place] P[place] BLUE REPLACEMENT [facility] MEDICARE PPO BLUE REPLACEMENT [facility] MEDICARE PPO BLUE REPLACEMENT [facility] MEDICARE PPO BLUE REPLACEMENT [facility] MEDICARE PPO BLUE REPLACEMENT [facility] MEDICARE PPO BLUE REPLACEMENT Care Teams [employer] Agent Relationship Specialty Start Date End Date Pcp, Unknown PCP - General 01/22/22 Jak Marley MD [address] [place] [id number] [email or web address] Historical LMR Provider 04/19/17 Additional Source Comments The information contained in this document represents components of the legal health record. It is not the complete legal health record.[facility]
== END 2025-03-31 10:01 | disposition home or self-care (01) ==
LOC: HO.HGS 09:16
PROVIDERS: PCP Internal Medicine; Visit Provider Physician Assistant Surgical
DX: Z09 Encounter for follow-up examination after completed treatment for conditions other than malignant neoplasm (principal)
CPT/HCPCS: 99213

== ENCOUNTER → 2025-03-31 09:16 | Outpatient (BNVA) | payer MEDICARE, SELFPAY | PROVIDERS: PCP Internal Medicine; Visit Provider Physician Assistant Surgical | DX: Z09 Encounter for follow-up examination after completed treatment for conditions other than malignant neoplasm (principal); Z87.19 Personal history of other diseases of the digestive system | CPT/HCPCS: 99212 ==

== ENCOUNTER 2025-04-18 12:14 | Outpatient (AMB) | payer MEDICARE, SELFPAY ==
--- NOTE | 2025-04-18 12:35 | A.OFFVIS_ITS ---
Vital Signs 04/18/25 12:41 Weight 195 lb BP 133/78 Blood Pressure Location Rt brachial Position Sitting Pulse 72 Intake Visit Reasons: s/p Repair of reducible umbilical hernia with mesh Intake Note: Patient here for 2wk follow up from last visit on 03-31-2025. S/p repair of reducible umbilical hernia with mesh. Patient c/o: no concerns. Pain has subsided. No longer taking rx pain meds. Surgery (): 03-24-2025 Cancer Registrar Required: No Accompanied by: Self / Same As Patient Allergies KAY Inhibitors (KAY INHIBITORS) Allergy (Severe, Verified 04/18/25 12:36) SWELLING ciprofloxacin (CIPROFLOXACIN) Allergy (Severe, Verified 04/18/25 12:36) SWELLING gabapentin (GABAPENTIN) Allergy (Severe, Verified 04/18/25 12:36) ANAPHYLAXIS erythromycin base (ERYTHROMYCIN BASE) Allergy (Intermediate, Verified 04/18/25 12:36) SHORTNESS OF BREATH ibuprofen (From MOTRIN) Allergy (Intermediate, Verified 04/18/25 12:36) HIVES amlodipine (From Norvasc) Allergy (Verified 04/18/25 12:36) Rash atenolol Allergy (Verified 04/18/25 12:36) Swelling carvedilol Allergy (Verified 04/18/25 12:36) Unknown citalopram Allergy (Verified 04/18/25 12:36) Unknown doxazosin (From Cardura) Allergy (Verified 04/18/25 12:36) Numbness finasteride Allergy (Verified 04/18/25 12:36) Depression tamsulosin Allergy (Verified 04/18/25 12:36) Depression SERATONIN Allergy (Severe, Uncoded 04/18/25 12:36) SERATONIN SYNDROME HPI HPI s/p Repair of reducible umbilical hernia with mesh: Details: Doing well. Denies pain. Only needed to take pain medications for 1 day after the procedure. His only concern is he thought he saw a suture from the incision site, but was not sure because of his poor vision. He denies nausea or vomiting. Appetite and bowel function at baseline. Denies bruising [facility] Medical History Urinary incontinence Urinary retention Hemorrhagic stroke Unilateral hearing loss Tinea cruris Prostatic abscess Panic disorder Depression Hypercholesteremia Hypercalcemia BPH (benign prostatic hyperplasia) Hepatomegaly Glucose intolerance Glaucoma Anxiety Abnormal liver function test Sleep apnea Hx of benign neoplasm Cataracts, bilateral Weakness Urinary tract infection Sepsis Hypertension Surgical History (Updated 03/31/25 @ 10:25 by Nickie Cowart PA-C) History of eyelid surgery Hx of tonsillectomy H/O colonoscopy Family History (Updated 02/18/25 @ 11:10 by COURTNEY Sarkar) Sister Breast CA Social History Household Members: Family Housing: House Are you a primary home care manager rn to a significant other at home: No Do you presently have visiting nurse or other home services: No Patient Tobacco Use Status: Never used Tobacco Advance Directives Date on File: 11/28/23 service: Yes Physical Exam Vital Signs: Last Vital Signs Pulse 72 04/18/25 12:41 BP 133/78 04/18/25 12:41 Const General: comfortable and no acute distress Orientation/consciousness: patient oriented x3 Limitations: wheelchair Resp Effort & Inspection: normal respiratory effort and able to speak in complete sentences GI Other: Incision site clean dry and intact. There was a small protruding suture from the left lateral side of the incision. There is some mild induration deep to the incision. There was no ecchymosis. No palpable fluid collection, no redness, no warmth. No recurrence on Valsalva Palpation (GI): Soft to palpation and nontender Neuro General: patient oriented x3 Assessment & Plan Assessment & Plan (1) S/P umbilical hernia repair, follow-up exam: Code(s): Z09 - Encounter for follow-up examination after completed treatment for conditions other than malignant neoplasm Category: Medical Plan 74-year-old male returning to the office for follow up after umbilical hernia repair on 03/24/2025. Patient returned to the office due to moderate ecchymosis surrounding incision site. States this has resolved. Denies pain. Appetite and bowel function at baseline. His only concern was a possible suture from the incision site. On exam I was able to visualize this there was a small 0.5 cm suture protruding from the left lateral side of the incision site. A trimmed this at the base. This should resolve in the next 1-2 months. Otherwise his abdomen is soft and benign. The incision appears to be whether there was no further ecchymosis at this time. No concern for infection at this time. There was some deep induration for which I told him that he can do warm compresses 2 or 3 times per day to help expedite the softening of this scar tissue. There was no recurrence on Valsalva. He otherwise looks well. He will continue activity restrictions until May 05 no heavy lifting greater than 15-20 lb. He is agreeable with this plan. He states that on May 07 he will be moving to [place] permanently. At this time does not require follow up, he can follow up with any concerns in the future prior to his move. Coding Level of Care Code Est Pt Level 3 (36537) Diagnoses S/P umbilical hernia repair, follow-up exam Z09
[2025-04-18 12:41] VITALS: BP 133/78; PULSE 72
== END 2025-04-18 12:52 | disposition home or self-care (01) ==
LOC: HO.HGS 12:15
PROVIDERS: PCP Internal Medicine
DX: Z09 Encounter for follow-up examination after completed treatment for conditions other than malignant neoplasm (principal)
CPT/HCPCS: 99213

== ENCOUNTER → 2025-04-18 12:14 | Outpatient (BNVA) | payer MEDICARE, SELFPAY | PROVIDERS: PCP Internal Medicine | DX: Z09 Encounter for follow-up examination after completed treatment for conditions other than malignant neoplasm (principal); K42.9 Umbilical hernia without obstruction or gangrene | CPT/HCPCS: 99212 ==